=== PATIENT | male | born 1965 | race Caucasian/White ===

== ENCOUNTER → 2021-05-15 14:20 | Outpatient (BNVA) | payer OTHER, SELFPAY | PROVIDERS: PCP Internal Medicine; Referring Provider Internal Medicine; Visit Provider Physician Assistant | DX: Z12.11 Encounter for screening for malignant neoplasm of colon (principal); Z51.81 Encounter for therapeutic drug level monitoring; Z79.01 Long term (current) use of anticoagulants | CPT/HCPCS: 99202 ==

== ENCOUNTER 2021-11-06 09:01 | Outpatient (REF) | payer OTHER, SELFPAY ==
[2021-11-06 09:53] LABS: Hematocrit 45.2 % (42.0-52.0); Hemoglobin 15.1 g/dl (14.0-18.0); Mean Corpuscular HGB Conc 33.4 g/dl (31.0-36.0); Mean Corpuscular Hemoglobin 28.4 pg (27.0-33.0); Mean Platelet Volume 9.6 fL (9.4-12.4); Platelet Count 231 X10*3/uL (160-400); Red Blood Count 5.32 X10*6/uL (4.60-5.80); White Blood Count 6.3 X10*3/uL (4.8-10.8)
[2021-11-06 10:16] LABS: Alanine Aminotransferase 35 U/L (0-40); Albumin Level 4.2 g/dL (3.5-5.0); Alkaline Phosphatase 75 U/L (39-117); Anion Gap 11 (12-20); Aspartate Amino Transferase 23 U/L (5-37); Bilirubin Total 0.4 mg/dL (0.0-1.0); Blood Urea Nitrogen 15 mg/dL (9-16); Calcium 9.8 mg/dL (8.4-10.2); Carbon Dioxide 27 mmol/L (22-29); Chloride 105 mmol/L (96-108); Cholesterol 243 mg/dL; Estimated Glomerular Filt Rate > 60; Glucose Fasting 90 mg/dL (60-99); HDL Cholesterol 45 mg/dL; LDL Cholesterol Calculated 155 mg/dl; Potassium 4.2 mmol/L (3.3-5.1); Sodium 139 mmol/L (135-145); Total Protein 7.3 g/dL (6.5-8.0); Triglycerides 219 mg/dL
[2021-11-06 11:05] LABS: Appearance Urine CLEAR; Color Urine YELLOW; Glucose Urine UA NEG (NEG); Leukocyte Esterase Urine NEG (NEG); Nitrite Urine NEG (NEG); Specific Gravity - Urine 1.025 (1.005-1.025); Urine Blood NEG (NEG); Urine Ketones NEG (NEG); Urine Protein NEG (NEG-TRACE)
[2021-11-06 11:22] LABS: RBC Urine 0 /HPF (0); WBC Urine 0-2 /HPF (0-4)
== END 2021-11-06 09:02 | disposition home or self-care (01) ==
LOC: HO.LAB 09:01
PROVIDERS: PCP Internal Medicine; Visit Provider Internal Medicine
DX: Z00.00 Encounter for general adult medical examination without abnormal findings (principal); E78.5 Hyperlipidemia, unspecified; I10 Essential (primary) hypertension
CPT/HCPCS: 36415; 80053; 80061; 81001; 84153; 85027

== ENCOUNTER 2021-11-12 13:40 | Outpatient (REF) | payer OTHER, SELFPAY ==
--- NOTE | ~2021-11-12 | CT_ITS ---
EXAMINATION: CT ABDOMEN AND PELVIS WITHOUT AND WITH CONTRAST CLINICAL INFORMATION: Gross hematuria. COMPARISON: None. TECHNIQUE: Multidetector volumetric imaging was performed of the abdomen and pelvis before and after the IV administration of 85 mL of Omnipaque 350 intravenous contrast. Sagittal and coronal reformatted images were obtained on the technologist's workstation. This CT examination was performed using dose optimization techniques as appropriate, variously including the following: *Automated exposure control *Adjustment of mA and/or kV according to patient size (this includes techniques or standardized protocols for targeted exams where dose is matched to indication/reason for exam; i.e. extremities or head) *Use of iterative reconstruction technique DLP: 688 mGy-cm. FINDINGS: LUNG BASES: The visualized lung bases are unremarkable. LIVER, GALLBLADDER, AND BILIARY TREE: The liver is normal in size, shape, and attenuation. No focal hepatic lesion or biliary ductal dilatation is present. The gallbladder is contracted without any radiopaque calculi or wall thickening. PANCREAS: Unremarkable. SPLEEN: Unremarkable. ADRENAL GLANDS: Unremarkable. KIDNEYS AND URETERS: The left kidney is enlarged measuring 11.3 cm. There are multiple hypodense renal cyst. The largest cyst upper pole left kidney appears lobulated measuring 11 x 3 x 5.1 cm. There is a 6 mm radiopaque lower pole calyx left kidney approximately 10 cm from the posterior skin line. The right kidney is normal size with a small cortical defect along the lower pole lateral cortex. A 4 mm nonobstructive radiopaque calculus midpole right kidney is noted. There is no hydronephrosis or obstructive calculi. BLADDER: Unremarkable. GASTROINTESTINAL TRACT: There is scattered stool in the right colon. No colonic distention seen. The appendix and the small bowel loops are normal caliber. The stomach is nondistended and appears unremarkable. ABDOMINAL WALL: A small umbilical hernia containing fat is noted. LYMPH NODES: No abnormal-sized retroperitoneal or pelvic lymph nodes seen. VASCULAR: Unremarkable. PELVIC VISCERA: The prostate gland is mildly enlarged. No free air or free fluid is seen. No abnormal pelvic lymphadenopathy. OSSEOUS STRUCTURES: No lytic or sclerotic process seen. There is mild ventral spondylosis L3-L4, L4-L5 and L5-S1 disc levels. CT/CT abdomen pelvis wo/w con IMPRESSION: Bilateral nonobstructive nephrolithiasis without hydronephrosis. There are multiple left renal cysts with largest cyst in the upper pole is exophytic, irregular shaped and measures 11 cm. Fleischner guidelines were followed.
[2021-11-12] MEDS: iohexoL 350 MG/ML 100 ML INFUS..BTL IV (15:36)
== END 2021-11-12 13:41 | disposition home or self-care (01) ==
LOC: HO.CT 13:40
PROVIDERS: PCP Internal Medicine; Visit Provider Physician Assistant
DX: R31.0 Gross hematuria (principal)
CPT/HCPCS: 74178; Q9967

== ENCOUNTER → 2022-06-26 08:22 | Outpatient (BNVA) | payer OTHER, SELFPAY | PROVIDERS: PCP Internal Medicine; Referring Provider Internal Medicine; Visit Provider Internal Medicine | DX: I63.9 Cerebral infarction, unspecified (principal) | CPT/HCPCS: 93005; 99212 ==

== ENCOUNTER 2022-07-25 07:08 | Day surgery (SDC) | payer OTHER, SELFPAY ==
[2022-07-25 07:29] VITALS: BP 149/92; PULSE 61; RESP 16; TEMP 36.2; O2SAT 95; BMI 30.4
[2022-07-25 07:34] VITALS: BMI 30.4
--- NOTE | 2022-07-25 08:08 | HO.ANESPROP2 ---
HPI - Anesthesia Eval Consult details Narrative: 56 M for EMILIANO h/o CVA , right sided weakness , improved after a month of CVA PMFSH Active Problems Active Problems: All Active Problems (Updated 07/25/22 @ 07:36 by Estella Rosado, CHANTELL) Encounter for screening colonoscopy (Acute) Anticoagulation management encounter (Acute) Embolic stroke (Acute) Hyperlipidemia (Acute) HTN (hypertension) (Acute) Vasectomy planned (Acute) Annual physical exam (Acute) Anxiety (Acute) Past Medical History Medical History (Updated 07/25/22 @ 08:16 by Estella Rosado, CHANTELL) Annual physical exam Anxiety CVA (cerebral vascular accident) Hernia HTN (hypertension) Hyperlipidemia PFO (patent foramen ovale) Right to left cardiac shunt Vasectomy planned Functional capacity: independent ambulation Family History Family History Father Colon cancer Mother No problems noted. 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 Cognitive needs: No Hearing needs: No Vision needs: No Meds Allergies Allergy/AdvReac Type Severity Reaction Status Date / Time No Known Allergies Allergy Verified 06/26/22 08:25 [No Known Allergies*] Exam Exam Date and Time: July 25, 2022 0808 Height,Weight and Vital Signs: Height 5 ft 8 in Weight 90.718 kg Last Vital Signs Temp 97.2 F 07/25/22 07:29 Pulse 61 07/25/22 07:29 Resp 16 07/25/22 07:29 BP 149/92 H 07/25/22 07:29 Pulse Ox 95 07/25/22 07:29 O2 Del Method 07/25/22 07:29 Airway Mallampati Class: III TM Dist: >3cm Neck ROM: Full Loose/Missing/Broken Teeth: Yes (Chipped teeth ) Heart: S1,S2 Lungs: bl breath sounds Assessment and Plan Assessment Anesthesia Assessment: Anesthesia Plan Discussed and Chart Reviewed Final Anesthetic Review Family History of Problems with Anesthesia: No History of Problems with Anesthesia: No NPO: Yes ASA Class: III Final Preanesthetic Review: Meds/Allgs Chart Reviewed, Consent Obtained/Reviewed and Anes Risks/Benef Reviewed Patient Risk: Intermediate Procedure Risk: Intermediate Anesthetic Plan Anesthetic Plan: MAC: Disposition: Standard PACU
--- NOTE | 2022-07-25 08:22 | CA_ITS ---
Transesophageal Echocardiogram Patient (Last, First, Middle): Heriberto Fitzgerald, Gender: Male Date of : 1965 Age: 56 Procedure Date: 07/25/2022 Procedure Type: Transesophageal Echocardiogram Location: OP Height: 172.72 cm Weight: 90.72 kg BSA: 2.04 m2 Heart Rate: 62 bpm Learning Strategist: KARISHMA Referring MD: Johnathon Garcia MD Retail Client Solutions Analyst: Johnathon Garcia MD Symptoms: Embolic CVA Conclusion: ??? 1. Mobile interatrial septum with a small PFO 2. Normal LV systolic function 3. No intracardiac thrombi or masses or vegetations 4. Within normal limits cardiac valvular Doppler 5. Mild atherosclerotic changes noted in the arch and the descending thoracic aorta 6. Normal pericardium Findings Procedure Information Contrast agent, definity, is being given per protocol without apparent complications. Consent was obtained prior to the procedure. Pre EMILIANO oral cavity was checked and revealed no overcrowding. The adult 3D probe was passed with no difficulty. Left Ventricle Normal left ventricular size, thickness, and systolic function. The visually estimated ejection fraction is between 60-65%. There is no evidence of regional wall motion abnormalities. There is no systolic anterior motion of the mitral valve. Diastolic function is normal for age. There is no evidence of a mass in the left ventricle. there is also noted up false tendon in left ventricle with septal attachment showing a calcified nodule. Definity contrast was used and there was no evidence of noncompaction Right Ventricle Normal right ventricular cavity size and systolic function. Atria The left atrium is normal in size. There is a mobile atrial septum noted. Contrast study for right to left shunting is mildly positive with Valsalva maneuver. There is shunt reversal with the release phase of the Valsalva maneuver. the left atrium was identified in multiple views and there are no intra I left atrial thrombi or masses. The left atrial appendage was identified in multiple views with no masses or thrombi. There is no significant smoke formation seen. The left upper, right upper and right lower pulmonary vein drain normally into the left atrium. The right atrium is normal in size. The right atrium was identified in multiple view. There is a prominent eustachian valve with ejection of IVC and the right atrium. The IVC and SVC drain normally into the right atrium. An of thrombi or masses seen within the right atrium. The right atrial appendage was identified as well without any thrombi or masses. The interatrial septum is mobile with evidence of small PFO with left-to right shunt with color Doppler noted at the superior limbus. The saline contrast study was suboptimal however with multiple different injection there was small [id number] shunting noted with Valsalva while type maneuver. Aortic Valve Normal aortic valve structure and function. There is no aortic valve stenosis. There is no evidence of a mass on the aortic valve. There is no aortic valve regurgitation. Mitral Valve Normal mitral valve structure and function. There is no anterior mitral leaflet prolapse and no posterior mitral leaflet prolapse. There is trace mitral valve regurgitation. There is no mitral valve stenosis. There is no mass noted on the mitral valve. Pulmonic Valve The pulmonic valve is likely normal. There is trace pulmonic valve regurgitation. Tricuspid Valve Normal tricuspid valve structure. There is trace tricuspid valve regurgitation. Great Vessels The visualized portions of the pulmonary artery and branches are normal. descending as well as descending thoracic and arch of aorta are normal size. There is mild atherosclerotic changes noted in the descending thoracic as well as the arch of the aorta. There were no protruding plaques Venous The inferior vena cava is normal in size and collapses greater than 50% with inspiration. Pericardium/Pleural There is no evidence of pericardial effusion. Measurements Mitral Valve MV Pk E: 0.91 MV PK A: 0.43 MV Decel Time: 202.00 E/A: 2.10 E'Lateral: 10.50 E'Medial: 7.61 E/E' Med: 12.00 E/E' Lat: 8.70 PHT: 59.00 MVA PHT: 3.73 Decel [place]: 4.52 Diastolic Function MV Pk E: 0.91 MV Pk A: 0.43 E/A: 2.10 E'Medial: 7.61 E/E' Med: 12.00 E' Laterial: 10.50 E/E' Lat: 8.70 Updated by Johnathon Garcia on 04:40 PM with Status of Final Johnathon Garcia MD electronically signed on 07/26/2022 4:40:18 PM with status of Final
--- NOTE | 2022-07-25 08:23 | MHC.SHP ---
Pre-Procedural Eval Section A Date of Service: 07/25/22 The patient is an INPATIENT: No Changes since office visit: Yes Patient answered all questions; No Cold of Flu in the past 2 weeks, No New Medical Problems and No Changes in Medication The History & Physical has been completed within 30 days and I have reviewed it.: Yes Section B Chief Complaint: cerebral infarction Allergies: Allergies Allergy/AdvReac Type Severity Reaction Status Date / Time No Known Allergies Allergy Verified 06/26/22 08:25 [No Known Allergies*] Plan I have reviewed the history and physical and performed a pertinent physical examination on my patient. No changes have occurred unless specified.
[2022-07-25 09:35] VITALS: BP 108/63; PULSE 63; RESP 18; TEMP 37.3; O2SAT 98
[2022-07-25 09:50] VITALS: BP 120/74; PULSE 78; RESP 18; TEMP 37.1; O2SAT 97
[2022-07-25 10:05] VITALS: BP 116/80; PULSE 81; RESP 16; TEMP 36.1; O2SAT 98
== END 2022-07-25 10:57 | disposition home or self-care (01) ==
PROVIDERS: PCP Internal Medicine; Visit Provider Internal Medicine Cardiovascular Disease
PROC: (CPT 93312; principal; 2022-07-25 08:30)
DX: I63.9 Cerebral infarction, unspecified (principal); I10 Essential (primary) hypertension; E78.5 Hyperlipidemia, unspecified; Q21.1 Atrial septal defect; F41.1 Generalized anxiety disorder; Z79.82 Long term (current) use of aspirin; Z79.899 Other long term (current) drug therapy
CPT/HCPCS: 93312; J2250; J3010; Q9957

== ENCOUNTER → 2022-08-19 13:30 | Outpatient (REF) | payer OTHER, SELFPAY ==
--- NOTE | 2022-08-19 13:37 | HM_ITS ---
REQUESTING PROVIDER: Dr. Angel. INDICATION FOR PROCEDURE: Paroxysmal atrial fibrillation. INTERPRETATION: The patient was hooked up to cardiac event monitor from 08/19/2022 to 09/18/2022, for a total period of 30 days. FINDINGS: Baseline rhythm was normal sinus rhythm with a heart rate varying from 70 beats per minute to 92 beats per minute. There were no significant arrhythmias noted. There were no episodes of atrial fibrillation. The patient reported one event that caused palpitations that correlated with sinus rhythm. CONCLUSION: Event monitor is remarkable. 1. Baseline normal sinus rhythm with no arrhythmias including atrial fibrillation. 2. The patient reported 1 event correlated with sinus rhythm. Johnathon Garcia MD NRS/MODL / [id number]
== END ==
LOC: HO.CARD 13:30
PROVIDERS: PCP Internal Medicine; Visit Provider Internal Medicine
DX: I48.0 Paroxysmal atrial fibrillation (principal); I63.9 Cerebral infarction, unspecified
CPT/HCPCS: 93270

== ENCOUNTER 2022-11-05 13:49 | Outpatient (REF) | payer OTHER, SELFPAY ==
--- NOTE | ~2022-11-05 | XR_ITS ---
EXAMINATION: XR KNEE AP STANDING CLINICAL INFORMATION: Right knee pain. COMPARISON: None. TECHNIQUE: AP and lateral bilateral standing views of the knees was obtained. FINDINGS: AP and lateral views of the right knee demonstrate chondrocalcinosis. No acute fractures identified. There is some mild spurring about the lateral joint space compartment. There is spurring at the undersurface of the patella at the patellofemoral joint. There is a prominent spur site of attachment of the quadriceps tendon on the patella. There is a small right knee effusion. Joint spaces appear maintained. AP and lateral views of the left knee demonstrate mild narrowing of the medial joint space compartment. No acute fracture or dislocation is evident. No definite chondrocalcinosis is appreciated. There is mild patellofemoral joint spurring. No knee effusion is appreciated. Patella spurs are seen at sites of insertion of quadriceps and patella tendons. XR/XR knee standing BI IMPRESSION: No acute fracture or dislocation of the knees. Chondrocalcinosis with mild patellofemoral joint degenerative change and small right knee effusion. Mild spurring patellofemoral joint and mild narrowing of the medial joint space compartment of the left knee.
== END 2022-11-05 13:50 | disposition home or self-care (01) ==
LOC: HO.HMGCX 13:49
PROVIDERS: PCP Internal Medicine; Visit Provider Internal Medicine
DX: M25.561 Pain in right knee (principal); M25.562 Pain in left knee
CPT/HCPCS: 73565

== ENCOUNTER 2022-12-09 09:47 | Outpatient (RCR) | payer OTHER, SELFPAY ==
--- NOTE | 2022-12-09 15:12 | MHC.PT.EP ---
[facility] [place] Office [place] Office [place] Office [address] Sherin Braga [address] [phone] F: [phone] F: [phone] F: [phone] F: [phone] Physical Therapy Plan of Care Date of Evaluation: Date of Surgery: Diagnosis: B knee pain. 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 Pt is deemed an appropriate candidate to receive skilled PT services to address their physical impairments in order to improve their functional ability. Frequency and Duration: The patient will be seen 2 x/ wk x 4 wks. Short Term Goals: Initiate HEP. Improved pain with activity to < 4/10; initial: 6/10. Full R knee flexion without painful end; initial 118 with painful end. Insurance Business Analyst Goals: I with HEP. Pt will be able to stand > 1 hour with at most a little bit of difficulty; initial: extreme difficulty or unable. Pt will be ably to walk 2 blocks with no difficulty; initial: moderate difficulty. 5/5 MMT achieved for R knee flexion and extension; initial: 4/5 limited by pain. Treatment Plan: Modalities to reduce pain, spasms and effusion. Manual therapy to restore motion and function. Therapeutic exercise to improve strength and flexibility. Neuromuscular re-education for posture and balance. Therapeutic activities to return to functional activities of daily living. Electronically signed by: Bishnu Berkowitz PT Please sign and return to therapist. Thank you for your referral.
--- NOTE | 2023-01-21 15:52 | MHC.PT.DC ---
[facility] [place] Office [place] Office [place] Office [address] Sherin Braga 140 [facility] [phone] F: [phone] F: [phone] F: [phone] F: [phone] Physical Therapy Discharge Report Diagnosis: B knee pain. Date of Surgery: Date of Evaluation: 12/09/22 Date of Discharge: 01/21/23 Treatments to Date: 1 Cancellations to Date: No Shows to Date: 2 Discharge Status: Visit Non-compliance Discharge Summary: Electronically signed by: Bishnu Berkowitz PT. Please sign and return to therapist. Thank you for your referral.
== END 2023-01-21 15:51 | disposition home or self-care (01) ==
LOC: HO.PTCHIC 09:47
PROVIDERS: PCP Internal Medicine; Visit Provider Internal Medicine
DX: M25.561 Pain in right knee (principal); M25.562 Pain in left knee
CPT/HCPCS: 97110; 97161

== ENCOUNTER → 2023-03-27 08:59 | Outpatient (REF) | payer OTHER, SELFPAY | LOC: HO.SL 08:59 | PROVIDERS: PCP Internal Medicine; Visit Provider Internal Medicine | DX: G47.30 Sleep apnea, unspecified (principal); R06.83 Snoring | CPT/HCPCS: 95806 ==

== ENCOUNTER 2023-04-18 06:45 | Outpatient (REF) | payer OTHER, SELFPAY ==
[2023-04-18 11:23] LABS: MANUAL DIFF FLAG NO
[2023-04-18 11:36] LABS: Basophils Absolute Auto 0.1 X10*3/uL (0.0-0.2); Basophils Percent Auto 0.8 % (0-2); Eosinophils Absolute Auto 0.1 X10*3/uL (0.0-0.4); Eosinophils Percent Auto 2.1 % (0-4); Hematocrit 45.6 % (42.0-52.0); Hemoglobin 15.1 g/dl (14.0-18.0); Imm Gran Abs Auto 0.01 X10*3/uL (0.00-0.03); Imm Gran Pct Auto 0.2 % (0.0-0.4); Lymphocytes Percent Auto 46.1 % (20-40); Mean Corpuscular HGB Conc 33.1 g/dl (31.0-36.0); Mean Corpuscular Hemoglobin 28.7 pg (27.0-33.0); Mean Corpuscular Volume 86.7 fL (80.0-98.0); Mean Platelet Volume 10.3 fL (9.4-12.4); Monocytes Absolute Auto 0.4 X10*3/uL (0.1-1.2); Monocytes Percent Auto 6.5 % (2-11); Neutrophils Absolute Auto 2.9 x10*3/uL (2.0-8.3); Neutrophils Percent Auto 44.3 % (45-73); Platelet Count 201 X10*3/uL (160-400); Red Blood Count 5.26 X10*6/uL (4.60-5.80); Red Cell Distribution Width 12.7 % (11.0-16.0); White Blood Count 6.6 X10*3/uL (4.8-10.8)
[2023-04-18 11:51] LABS: Alanine Aminotransferase 47 U/L (0-40); Albumin Level 4.3 g/dL (3.5-5.0); Alkaline Phosphatase 87 U/L (39-117); Anion Gap 11 (12-20); Aspartate Amino Transferase 30 U/L (5-37); Bilirubin Total 0.7 mg/dL (0.0-1.0); Blood Urea Nitrogen 20 mg/dL (9-16); Calcium 9.5 mg/dL (8.4-10.2); Carbon Dioxide 27 mmol/L (22-29); Chloride 107 mmol/L (96-108); Cholesterol 170 mg/dL; Estimated Glomerular Filt Rate > 60; Glucose Fasting 89 mg/dL (60-99); HDL Cholesterol 43 mg/dL; LDL Cholesterol Calculated 101 mg/dl; Potassium 3.8 mmol/L (3.3-5.1); Sodium 141 mmol/L (135-145); Total Protein 7.3 g/dL (6.5-8.0); Triglycerides 132 mg/dL
[2023-04-18 12:10] LABS: PSA,Total (Free>4and<10) 2.16 ng/mL (0.00-4.00)
== END 2023-04-18 06:46 | disposition home or self-care (01) ==
LOC: HO.HMGCLDS 06:45
PROVIDERS: PCP Internal Medicine; Visit Provider Internal Medicine
DX: Z00.00 Encounter for general adult medical examination without abnormal findings (principal); N40.0 Benign prostatic hyperplasia without lower urinary tract symptoms; E78.5 Hyperlipidemia, unspecified; I10 Essential (primary) hypertension
CPT/HCPCS: 36415; 80053; 80061; 84153; 85025

== ENCOUNTER 2023-04-28 10:00 | Outpatient (RCR) | payer OTHER, SELFPAY ==
--- NOTE | 2023-04-07 10:51 | MHC.PT.EP ---
[facility] [place] Office [place] Office [place] Office [address] Sherin Braga [address] [phone] F: [phone] F: [phone] F: [phone] F: [phone] Physical Therapy Plan of Care Date of Evaluation: Date of Surgery: Diagnosis: Pain in R knee Assessment: 57 y/o male referred to PT with R knee pain. S/s consistent with ITB syndrome resulting in lateral knee pain, pain and difficulty with kneeling, squatting, getting off floor and sleeping in sidelying secondary to decreased muscle length of HS/ quads/ hip flexors/ ITB/ piriformis, lateral patella tracking, good strength, and increased trunk lateral flexion during gait. Recommend PT 1x/week for 4 weeks to address impairments, implement HEP, and optimize functional mobility. Frequency and Duration: The patient will be seen 1x/week for 4 weeks Short Term Goals: 2 weeks Compliant with HEP Demonstrate negative anam B Senior Care Goals: 4 weeks I with HEP and self management of sx Reports decrease in lateral R knee pain < 50% of the time with ADL's Pt will be able to get off floor from 1/2 kneel B with pain < 3/10 Treatment Plan: Modalities to reduce pain, spasms and effusion. Manual therapy to restore motion and function. Therapeutic exercise to improve strength and flexibility. Neuromuscular re-education for posture and balance. Therapeutic activities to return to functional activities of daily living. Electronically signed by: Francesca Villarreal PT Please sign and return to therapist. Thank you for your referral.
--- NOTE | 2023-05-30 09:36 | MHC.PT.DC ---
[facility] [place] Office [place] Office [place] Office [address] Sherin Braga [address] [phone] F: [phone] F: [phone] F: [phone] F: [phone] Physical Therapy Discharge Report Diagnosis: Pain in R knee Date of Surgery: Date of Evaluation: 04/07/23 Date of Discharge: 05/30/23 Treatments to Date: 3 Cancellations to Date: 0 No Shows to Date: 0 Discharge Status: Improved Function Independent with HEP Discharge Summary: Pt was making good progress and I with HEP. He had good mechanics and demonstrated compliance with HEP as he can demonstrate without instruction. He did not f/u with final visit and is d/c at this time as it has been over 30 days since last visit. Electronically signed by: Francesca Villarreal PT Please sign and return to therapist. Thank you for your referral.
== END 2023-05-30 09:36 | disposition home or self-care (01) ==
LOC: HO.PTCHIC 10:00
PROVIDERS: PCP Internal Medicine; Visit Provider Internal Medicine
DX: M25.561 Pain in right knee (principal)
CPT/HCPCS: 97110; 97161

== ENCOUNTER 2023-10-27 12:18 | Outpatient (AMB) | payer OTHER, SELFPAY ==
[2023-10-27 12:30] VITALS: BP 126/76; PULSE 63; O2SAT 97; BMI 33.3
--- NOTE | 2023-10-27 12:30 | A.OFFPC_ITS ---
Vital Signs 10/27/23 12:30 Height 5 ft 8 in Weight 219 lb BMI 33.3 BP 126/76 Blood Pressure Location Lt brachial Position Sitting Pulse 63 Pulse Source Pulse Oximeter Pulse Oximetry (%) 97 Oxygen Delivery Method Room Air Intake Visit Reasons: S/P PFO Repair Intake Note: Pt is here today for Hospital follow up visit from [facility]. Allergies No Known Allergies [No Known Allergies*] Allergy (Verified 10/27/23 12:35) Tobacco use date assessed: 10/27/23 Dental Screening Dental Screen Date: 10/27/23 Did you have a dental visit in the last 12 months?: Yes Did you have a dental problem in the last 6 months where you did not have access to dental care?: No Was dental information given to patient?: Patient has dentist HPI S/P PFO Repair HPI Details Pt presents for follow-up of PFO closure. HE HAS BEEN TAKING ATORVASTATIN METOPROLOL BABY ASPIRIN AND PLAVIX. Patient's noticed episodes of apnea more patient is sleeping. Patient complains of umbilical hernia getting bigger and causing some discomfort. [facility] Medical History (Updated 10/27/23 @ 15:33 by Thalia Agarwal MD) Sleep apnea Right to left cardiac shunt PFO (patent foramen ovale) Hernia Vasectomy planned Annual physical exam Anxiety HTN (hypertension) Hyperlipidemia CVA (cerebral vascular accident) Surgical History No pertinent past surgical history Family History (Updated 02/24/23 @ 12:45 by Rachel Singletary Ivon) Father Colon cancer Mother No problems noted. 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 Jorge Sifuentes, Faith Arechiga, Fadi Richter and colleagues, with an educational mer from [employer] Review of Systems Const All systems reviewed & are unremarkable except as noted in HPI and below Reports no additional complaints Eyes Reports no additional complaints ENT Reports no additional complaints Card Reports no additional complaints Resp Reports no additional complaints GI Reports no additional complaints Reports no additional complaints Physical exam (Primary Care) Vital Signs: Last Vital Signs Pulse 63 10/27/23 12:30 BP 126/76 10/27/23 12:30 Pulse Ox 97 10/27/23 12:30 Oxygen Delivery Method Room Air 10/27/23 12:30 BMI result Body Mass Index 33.3 Tobacco/Smoking Status: Tobacco use Status Tobacco use date assessed 10/27/23 10/27/23 12:35 Patient Tobacco Use Status Never used Tobacco 10/27/23 12:35 e-Cigarette/Vaping Use Never Used 10/27/23 12:30 Thrive Assessment: Date of Thrive Assessment Date Thrive assessed 02/24/23 10/27/23 12:30 Const General: no acute distress HENMT Face and sinus: Yes normal facial exam Eyes General: appearance normal, both eyes and all related structures Resp Effort & Inspection: normal respiratory effort Auscultation: clear to auscultation bilaterally Cardio Rhythm: regular rhythm Heart sounds: S1 normal heart sound present and S2 normal heart sound present GI Other: Reducible periumbilical hernia Palpation (GI): Soft to palpation Percussion: Yes normal to percussion Auscultation: normal bowel sounds Assessment and Plan Assessment & Plan (1) Umbilical hernia: Code(s): K42.9 - Umbilical hernia without obstruction or gangrene Plan: Referred to the surgeon (2) Sleep apnea: Code(s): G47.30 - Sleep apnea, unspecified Plan: Schedule home sleep study (3) Hyperlipidemia: Code(s): E78.5 - Hyperlipidemia, unspecified Plan: Continue statin (4) HTN (hypertension): Code(s): I10 - Essential (primary) hypertension Plan: Continue metoprolol (5) PFO (patent foramen ovale): Comment: s/p closure [facility] 10/16 Code(s): Q21.1 - Atrial septal defect Orders: Orders Complete Blood Count Auto Diff 3 Months E78.5 - Hyperlipidemia, unspecified, I10 - Essential (primary) hypertension PSA,Total (Free>4and<10) 3 Months E78.5 - Hyperlipidemia, unspecified, I10 - Essential (primary) hypertension TSH reflex Free T4 3 Months E78.5 - Hyperlipidemia, unspecified, I10 - Essential (primary) hypertension RT home sleep study Today G47.30 - Sleep apnea, unspecified Comprehensive [place]. Panel Fast 3 Months E78.5 - Hyperlipidemia, unspecified, I10 - Essential (primary) hypertension Lipid Panel 3 Months E78.5 - Hyperlipidemia, unspecified, I10 - Essential (primary) hypertension Referrals General Surgery Referral G47.30 - Sleep apnea, unspecified, K42.9 - Umbilical hernia without obstruction or gangrene Medications: New famotidine (Pepcid) 40 mg PO BEDTIME 90 tabs 0RF Coding Level of Care Code Est Pt Level 4 (71039) Diagnoses Umbilical hernia K42.9 Sleep apnea G47.30 Hyperlipidemia E78.5 HTN (hypertension) I10 PFO (patent foramen ovale) Q21.1
== END 2023-10-27 15:33 | disposition home or self-care (01) ==
PROVIDERS: PCP Internal Medicine; Visit Provider Internal Medicine
DX: K42.9 Umbilical hernia without obstruction or gangrene (principal); G47.30 Sleep apnea, unspecified; E78.5 Hyperlipidemia, unspecified; I10 Essential (primary) hypertension; Q21.10 Atrial septal defect, unspecified
CPT/HCPCS: 99214

== ENCOUNTER 2023-11-10 07:37 | Outpatient (AMB) | payer OTHER, SELFPAY ==
--- NOTE | 2023-11-10 07:40 | MHC.OFFVIS ---
Intake Vital Signs 11/10/23 07:46 Height 5 ft 8 in Weight 220 lb BMI 33.4 BP 151/71 H Blood Pressure Location Lt brachial Position Sitting Pulse 76 Intake Visit Reasons: Colonoscopy Screening Intake Note: Patient follow up for Pre Colonoscopy screening Patient denies any GI issues. Recreational Therapy Technician Required: No Accompanied by: Self / Same As Patient Allergies No Known Allergies [No Known Allergies*] Allergy (Verified 11/10/23 07:45) Medication List - Last Reconciled 11/10/23 by Jesi Diaz PA-C aspirin 81 mg PO DAILY atorvastatin 80 mg PO DAILY buspirone 5 mg PO BID clopidogrel 75 mg PO DAILY famotidine (Pepcid) 40 mg PO BEDTIME metoprolol succinate ER 25 mg PO DAILY nystatin 1 appl topical BID HPI HPI Comments History of Present Illness Details A 58 y/o male seen in 2020 for colonoscopy- was taking plavix s/p CVA-at that time- plavix was dc'd . He never had a colonoscopy- He is here today to discuss colonoscopy- he says he is not a good historian He had FO repair- at [facility], he is now taking plavix- is scheduled to discontinue December-Following cardiology @ [facility]-and again in January- He has no GI or general complaints - occ. reflux after meds in the a.m. resolves-manages well Going to [place] for December into January He has a very good appetite Has normal bowel pattern Is he has no nausea, vomiting, hematemesis, hematochezia fever or chills. He has no chest pain or shortness of PFSH Medical History (Updated 11/10/23 @ 11:26 by Jesi Diaz PA-C) Sleep apnea Right to left cardiac shunt PFO (patent foramen ovale) Hernia Vasectomy planned Annual physical exam Anxiety HTN (hypertension) Hyperlipidemia CVA (cerebral vascular accident) Surgical History No pertinent past surgical history Family History Father Colon cancer Mother No problems noted. 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 Cognitive needs: No Hearing needs: No Vision needs: No Review of Systems Const All systems reviewed & are unremarkable except as noted in HPI and below Card Denies chest pain GI Denies dyspepsia Physical Exam Vital Signs: Last Vital Signs Pulse 76 11/10/23 07:46 BP 151/71 H 11/10/23 07:46 BMI result Body Mass Index 33.4 Const General: cooperative, healthy appearing, comfortable and no acute distress Orientation/consciousness: patient oriented x3 Limitations: no limitations Eyes Sclerae: sclerae normal Resp Effort & Inspection: normal respiratory effort and able to speak in complete sentences Auscultation: clear to auscultation bilaterally, no rales, no rhonchi and no wheezes Cardio Rate: regular rate Rhythm: regular rhythm GI Palpation (GI): Soft to palpation and nontender Auscultation: normal bowel sounds Skin General skin exam: no rashes or lesions noted Neuro General: patient oriented x3 Extrem General: Yes full ROM Psych Appearance: grossly normal and well kempt Mental Status: mental status grossly normal Speech and movement: Normal speech and movement present and Clear speech present Affect: normal affect Attitude: cooperative Thought process: Normal thought process present Thought content: Normal thought content present Assessment & Plan Assessment & Plan (1) Anticoagulation management encounter: Comment: s/pCVA- clopidogrel-recent FO repair Code(s): Z51.81 - Encounter for therapeutic drug level monitoring; Z79.01 - senior care (current) use of anticoagulants Plan: Continue follow-at [facility] Continue usual medications Will await follow-up (2) PFO (patent foramen ovale): Comment: s/p closure [facility] 10/16 Code(s): Q21.1 - Atrial septal defect Plan: Continue to follow Plan Will see patient back after re-evaluated by Cardiology after recent surgery He is agree to the plan Patient Instructions: Pleasant 58-year-old Gent recent-repair of for remain ovale, clopidogrel-referred back to discuss screening colonoscopy. He has no GI or general complaints. However he will also be traveling December to [place] will be following with Cardiology on his return as well. Will see patient back after re-evaluated by Cardiology after recent surgery We typically discontinue clopidogrel for 7 days prior to procedure anticipation of polypectomy or biopsies. He is encouraged to call with any questions or concerns He is agree to the plan Coding Level of Care Code Est Pt Level 3 (75390) Diagnoses Anticoagulation management encounter Z51.81; Z79.01 PFO (patent foramen ovale) Q21.1 Time Spent (min) 30
[2023-11-10 07:46] VITALS: BP 151/71; PULSE 76; BMI 33.4
== END 2023-11-10 09:40 | disposition home or self-care (01) ==
PROVIDERS: PCP Internal Medicine; Referring Provider Internal Medicine; Visit Provider Physician Assistant
DX: Z51.81 Encounter for therapeutic drug level monitoring (principal); Z79.01 Long term (current) use of anticoagulants; Q21.10 Atrial septal defect, unspecified
CPT/HCPCS: 99213

== ENCOUNTER → 2023-11-10 07:37 | Outpatient (BNVA) | payer OTHER, SELFPAY | PROVIDERS: PCP Internal Medicine; Visit Provider Physician Assistant | DX: Z51.81 Encounter for therapeutic drug level monitoring (principal); K42.9 Umbilical hernia without obstruction or gangrene; Q21.12 Patent foramen ovale; Z79.01 Long term (current) use of anticoagulants | CPT/HCPCS: 99202; 99212 ==

== ENCOUNTER 2023-11-10 15:20 | Outpatient (AMB) | payer OTHER, SELFPAY ==
--- NOTE | 2023-11-10 15:22 | A.OFFVIS_ITS ---
Intake Vital Signs 11/10/23 15:27 Height 5 ft 8 in Weight 220 lb BMI 33.4 Intake Visit Reasons: Umbilical Hernia Intake Note: This patient presents for a umbilical hernia assessment. Patient c/o; reports no changes or complaints at this time. Flux Plant Operator Required: No Accompanied by: Self / Same As Patient Allergies No Known Allergies [No Known Allergies*] Allergy (Verified 11/10/23 15:29) Medication List - Last Reconciled 11/10/23 by Haresh Price MD aspirin 81 mg PO DAILY atorvastatin 80 mg PO DAILY buspirone 5 mg PO BID clopidogrel 75 mg PO DAILY famotidine (Pepcid) 40 mg PO BEDTIME metoprolol succinate ER 25 mg PO DAILY nystatin 1 appl topical BID HPI Umbilical Hernia HPI Details 58-year-old male referred for an umbilic al hernia. He has noticed this reducible mass on his umbilicus for a few weeks. He describes some discomfort with this. He does describe this occasionally appearing bigger with exertion. He had a closure of a patent foramen ovale in [facility] done trans arterially through the right groin last August 2023. He had a history of a stroke 2 years ago assumed to be because of his PFO. Otherwise he says he is in good health. [facility] Medical History Sleep apnea Right to left cardiac shunt PFO (patent foramen ovale) Hernia Vasectomy planned Annual physical exam Anxiety HTN (hypertension) Hyperlipidemia CVA (cerebral vascular accident) Surgical History No pertinent past surgical history Family History Father Colon cancer Mother No problems noted. 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 Cognitive needs: No Hearing needs: No Vision needs: No Review of Systems Const Denies chills and Denies fever(s) Card Denies chest pain, Denies dyspnea and Denies dyspnea on exertion Resp Denies cough, Denies dyspnea and Denies dyspnea on exertion GI Denies hematochezia and Denies change in bowel habits Denies hematuria and Denies difficulty urinating Musc Denies back pain and Denies limited range of motion Neuro Denies focal weakness and Denies convulsions Psych Denies depression and Denies mood swings Physical Exam Const General: comfortable and no acute distress Orientation/consciousness: patient oriented x3 Neck Neck: Yes no lymphadenopathy Resp Auscultation: clear to auscultation bilaterally Cardio Rhythm: regular rhythm GI Other: Umbilical hernia reducible, about 2.5 cm diameter fascial defect Palpation (GI): Soft to palpation, nontender and no guarding Neuro General: patient oriented x3 Assessment & Plan Assessment & Plan (1) Umbilical hernia: Code(s): K42.9 - Umbilical hernia without obstruction or gangrene Plan: I explained to him the technique of repair of the umbilical hernia with possible mesh placement. I reviewed the risks including but not limited to bleeding, infections, recurrence, postop pain, bowel injury, poor healing, as well as the benefits and alternatives. He has given consent. I also reviewed with him what to expect postoperatively. Coding Level of Care Code New Pt Level 3 (65407) Diagnoses Umbilical hernia K42.9
[2023-11-10 15:27] VITALS: BMI 33.4
== END 2023-11-10 15:46 | disposition home or self-care (01) ==
PROVIDERS: PCP Internal Medicine; Referring Provider Internal Medicine; Visit Provider Surgery
DX: K42.9 Umbilical hernia without obstruction or gangrene (principal)
CPT/HCPCS: 99203

== ENCOUNTER 2024-02-09 07:34 | Outpatient (AMB) | payer OTHER, SELFPAY ==
[2024-02-09 07:46] VITALS: BP 157/74; PULSE 74; BMI 33.4
--- NOTE | 2024-02-09 07:46 | MHC.OFFVIS ---
Intake Vital Signs 02/09/24 07:46 Height 5 ft 8 in Weight 220 lb BMI 33.4 BP 157/74 H Blood Pressure Location Lt brachial Position Sitting Pulse 74 Intake Visit Reasons: 3 month follow up Intake Note: Patient follow up for Anticuagulation managment Patient denies any GI issues. Binding Dyer Required: No Accompanied by: Self / Same As Patient Allergies No Known Allergies [No Known Allergies*] Allergy (Verified 02/09/24 07:51) Medication List - Last Reconciled 02/09/24 by Jesi Diaz PA-C aspirin 81 mg PO DAILY atorvastatin 80 mg PO DAILY buspirone 5 mg PO BID famotidine (Pepcid) 40 mg PO BEDTIME metoprolol succinate ER 25 mg PO DAILY nystatin 1 appl topical BID HPI HPI Comments History of Present Illness Details A 89 y/o male S/P-embolic stroke/ FO repair- was taking clopidogrel-now dc'd-awaiting index screening colonoscopy- was postponed-just returned from [place] Follows with [facility] Cardiology- Dr. Ronni Reilly He has umbilical hernia scheduled for March- will want to wait for few months- He has questions Cologuard for he as well as his - We reviewed 13% false positive, if positive would recommend colonoscopy- Appetite is good- Bowels are normal No N/V/D abdominal pain- fever or chills- [facility] Medical History (Updated 02/09/24 @ 10:36 by Jesi Diaz PA-C) Sleep apnea Right to left cardiac shunt PFO (patent foramen ovale) Hernia Vasectomy planned Annual physical exam Anxiety HTN (hypertension) Hyperlipidemia CVA (cerebral vascular accident) Surgical History No pertinent past surgical history Family History Father Colon cancer Mother No problems noted. 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 Cognitive needs: No Hearing needs: No Vision needs: No Review of Systems Const All systems reviewed & are unremarkable except as noted in HPI and below Physical Exam Vital Signs: Last Vital Signs Pulse 74 02/09/24 07:46 BP 157/74 H 02/09/24 07:46 BMI result Body Mass Index 33.4 Const General: cooperative, healthy appearing and comfortable Orientation/consciousness: patient oriented x3 Limitations: no limitations Eyes Sclerae: sclerae normal Resp Effort & Inspection: normal respiratory effort and able to speak in complete sentences Skin General skin exam: no rashes or lesions noted Neuro General: patient oriented x3 Extrem General: Yes full ROM Psych Appearance: grossly normal and well kempt Mental Status: mental status grossly normal Speech and movement: Normal speech and movement present and Clear speech present Affect: normal affect Attitude: cooperative Thought content: Normal thought content present Assessment & Plan Assessment & Plan (1) Embolic stroke: Code(s): I63.9 - Cerebral infarction, unspecified (2) Encounter for screening colonoscopy: Comment: Due for index screening colonoscopy Held off due to anticoagulated Upcoming umbilical hernia surgery- Reviewed alternative to colonoscopy will get Cologuard Code(s): Z12.11 - Encounter for screening for malignant neoplasm of colon Plan: If Cologuard positive recommend colonoscopy Plan cologuard F/u 3 mos- 30 pls Orders: Referrals Cologuard Test G47.30 - Sleep apnea, unspecified, I63.9 - Cerebral infarction, unspecified, Z12.11 - Encounter for screening for malignant neoplasm of colon Patient Instructions: Cologuard-approximately 13% false positive, if positive recommend colonoscopy Will follow up after results available No major barriers to understanding were identified Encouraged to call with any questions or concerns Coding Level of Care Code Est Pt Level 3 (68542) Diagnoses Embolic stroke I63.9 Encounter for screening colonoscopy Z12.11 Time Spent (min) 20
== END 2024-02-09 08:21 | disposition home or self-care (01) ==
PROVIDERS: PCP Internal Medicine; Visit Provider Physician Assistant
DX: I63.9 Cerebral infarction, unspecified (principal); Z12.11 Encounter for screening for malignant neoplasm of colon
CPT/HCPCS: 99213

== ENCOUNTER → 2024-02-09 07:34 | Outpatient (BNVA) | payer OTHER, SELFPAY | PROVIDERS: PCP Internal Medicine; Visit Provider Physician Assistant | DX: I63.9 Cerebral infarction, unspecified (principal); Z12.11 Encounter for screening for malignant neoplasm of colon; G47.30 Sleep apnea, unspecified | CPT/HCPCS: 99212 ==

== ENCOUNTER 2024-04-13 07:28 | Outpatient (REF) | payer OTHER, SELFPAY ==
[2024-04-13 10:28] LABS: MANUAL DIFF FLAG NO
[2024-04-13 10:31] LABS: Basophils Absolute Auto 0.1 X10*3/uL (0.0-0.2); Basophils Percent Auto 0.7 % (0-2); Eosinophils Absolute Auto 0.1 X10*3/uL (0.0-0.4); Eosinophils Percent Auto 1.8 % (0-4); Hemoglobin 15.7 g/dl (14.0-18.0); Imm Gran Abs Auto 0.01 X10*3/uL (0.00-0.03); Imm Gran Pct Auto 0.1 % (0.0-0.4); Lymphocytes Absolute Auto 3.6 X10*3/uL (1.2-4.9); Lymphocytes Percent Auto 52.9 % (20-40); Mean Corpuscular HGB Conc 33.4 g/dl (31.0-36.0); Mean Corpuscular Hemoglobin 29.2 pg (27.0-33.0); Mean Corpuscular Volume 87.4 fL (80.0-98.0); Mean Platelet Volume 10.4 fL (9.4-12.4); Monocytes Absolute Auto 0.4 X10*3/uL (0.1-1.2); Monocytes Percent Auto 5.1 % (2-11); Neutrophils Absolute Auto 2.7 x10*3/uL (2.0-8.3); Neutrophils Percent Auto 39.4 % (45-73); Platelet Count 213 X10*3/uL (160-400); Red Blood Count 5.38 X10*6/uL (4.60-5.80); Red Cell Distribution Width 13.3 % (11.0-16.0); White Blood Count 6.8 X10*3/uL (4.8-10.8)
[2024-04-13 11:12] LABS: PSA,Total (Free>4and<10) 3.22 ng/mL (0.00-4.00)
[2024-04-13 11:18] LABS: Alanine Aminotransferase 46 U/L (0-40); Albumin Level 4.3 g/dL (3.5-5.0); Alkaline Phosphatase 87 U/L (39-117); Anion Gap 12 (12-20); Aspartate Amino Transferase 30 U/L (5-37); Bilirubin Total 0.5 mg/dL (0.0-1.0); Blood Urea Nitrogen 16 mg/dL (9-16); Calcium 9.6 mg/dL (8.4-10.2); Carbon Dioxide 28 mmol/L (22-29); Chloride 108 mmol/L (96-108); Cholesterol 169 mg/dL (<200); Estimated Glomerular Filt Rate > 60; Glucose Fasting 94 mg/dL (60-99); HDL Cholesterol 44 mg/dL (>40); LDL Cholesterol Calculated 98 mg/dL (<100); Potassium 3.9 mmol/L (3.3-5.1); Sodium 144 mmol/L (135-145); Total Protein 7.6 g/dL (6.5-8.0); Triglycerides 137 mg/dL (<150)
[2024-04-13 11:19] LABS: TSH reflex Free T4 2.12 uIU/mL (0.32-4.0)
== END 2024-04-13 07:29 | disposition home or self-care (01) ==
LOC: HO.HMGCLDS 07:28
PROVIDERS: PCP Internal Medicine; Visit Provider Internal Medicine
DX: E78.5 Hyperlipidemia, unspecified (principal); I10 Essential (primary) hypertension
CPT/HCPCS: 36415; 80053; 80061; 84153; 84443; 85025

== ENCOUNTER 2024-04-14 12:39 | Outpatient (AMB) | payer OTHER, SELFPAY ==
[2024-04-14 12:39] VITALS: BP 128/86; PULSE 70; O2SAT 97; BMI 33.1
--- NOTE | 2024-04-14 12:39 | A.OFFPC_ITS ---
Vital Signs 04/14/24 12:39 Height 5 ft 8 in Weight 218 lb BMI 33.1 BP 128/86 Blood Pressure Location Lt brachial Position Sitting Pulse 70 Pulse Source Pulse Oximeter Pulse Oximetry (%) 97 Oxygen Delivery Method Room Air Intake Visit Reasons: Annual PE Intake Note: Pt is here today for PE. Allergies No Known Allergies [No Known Allergies*] Allergy (Verified 04/14/24 12:48) Medication List - Last Reconciled 04/14/24 by Thalia Agarwal MD aspirin 81 mg PO DAILY atorvastatin 80 mg PO DAILY buspirone 5 mg PO BID famotidine (Pepcid) 40 mg PO BEDTIME metoprolol succinate ER 25 mg PO DAILY nystatin 1 appl topical BID Tobacco use date assessed: 04/14/24 Dental Screening Dental Screen Date: 04/14/24 Did you have a dental visit in the last 12 months?: Yes Did you have a dental problem in the last 6 months where you did not have access to dental care?: No Was dental information given to patient?: Patient has dentist HPI Annual PE 2 HPI Details Patient presents for PE PFS Medical History (Updated 04/14/24 @ 13:20 by Thalia Agarwal MD) Right to left cardiac shunt PFO (patent foramen ovale) Hernia Vasectomy planned Annual physical exam Anxiety HTN (hypertension) Hyperlipidemia CVA (cerebral vascular accident) Surgical History No pertinent past surgical history Family History Father Colon cancer Mother No problems noted. 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 1. Little interest or pleasure in doing things: not at all 2. Feeling down, depressed, or hopeless: not at all 3. Trouble falling or staying asleep, or sleeping too much: not at all 4. Feeling tired or having little energy: not at all 5. Poor appetite or overeating: not at all 6. Feeling bad about yourself - or that you are a failure or have let yourself or your family down: not at all 7. Trouble concentrating on things, such as reading the newspaper or watching television: not at all 8. Moving or speaking so slowly that other people could have noticed. Or the opposite - being so fidgety or restless that you have been moving around a lot more than usual: not at all 9. Thoughts that you would be better off or of hurting yourself in some way: not at all Total score: 0 Depression Screening Interpretation: Negative Depression Screening Done: Yes Source: Developed by Drs. Jorge Sifuentes, Faith Arechiga, Fadi Richter and colleagues, with an educational mer from [employer]. Thrive Questionnaire Date Thrive assessed: 04/14/24 I am a: Patient What is your living situation today?: I have a steady place to live Within the past 12 months, did the food you bought not last and you didn't have the money to get more?: Never true Within the past 12 months, did you worry whether your food would run out before you got money to buy more?: Never true Do you have trouble paying for medicines?: No Do you have trouble getting transportation to medical appointments?: No Do you have trouble paying your heating and electricity bill?: No Do you have trouble taking care of your child, family member or friend?: No Do you have trouble with day-to-day activities such as bathing, preparing meals, shopping, managing finances, etc.?: No Are you currently unemployed and looking for a job?: No Are you interested in more education?: No Please select the resources that you would like help with: None THRIVE Score: 0 AUDIT C Alcohol Use Questionnaire (AUDIT-C) 1. How often do you have a drink containing alcohol?: Monthly or less 2. How many drinks containing alcohol do you have on a typical day when you are drinking?: 1 or 2 3. How often do you have six or more drinks on one occasion?: Never Total Score: 1 RUPAL-7 AMB Questionnaire RUPAL-7 Date RUPAL - 7 assessed: 04/14/24 Feeling nervous, anxious, or on edge: 0 = Not at all Not being able to stop or control worryin = Not at all Worrying too much about different things: 0 = Not at all Trouble relaxin = Not at all Being so restless that it is hard to sit still: 0 = Not at all Becoming easily annoyed or irritable: 0 = Not at all Feeling afraid as if something awful might happen: 0 = Not at all Total RUPAL-7 score (0-4 normal; 5-9 mild; 10-14 moderate; 15-21 severe): 0 Source: Developed by Drs. Jorge Sifuentes, Faith Arechiga, Fadi Richter and colleagues, with an educational mer from [employer]. Review of Systems Const All systems reviewed & are unremarkable except as noted in HPI and below Eyes Reports no additional complaints ENT Reports no additional complaints Card Reports no additional complaints Resp Reports no additional complaints GI Reports no additional complaints Reports no additional complaints Physical exam (Primary Care) Vital Signs: Last Vital Signs Pulse 70 04/14/24 12:39 BP 128/86 04/14/24 12:39 Pulse Ox 97 04/14/24 12:39 Oxygen Delivery Method Room Air 04/14/24 12:39 BMI result Body Mass Index 33.1 Tobacco/Smoking Status: Tobacco use Status Tobacco use date assessed 04/14/24 04/14/24 12:50 Patient Tobacco Use Status Never used Tobacco 04/14/24 12:50 e-Cigarette/Vaping Use Never Used 04/14/24 12:40 PHQ-9: PHQ-9 Score PHQ-9: Total score 0 04/14/24 12:52 Depression Screening Interpretation: Negative Thrive Assessment: Date of Thrive Assessment Date Thrive assessed 04/14/24 04/14/24 12:52 Const General: no acute distress HENMT Head: Yes normal to inspection Ears: hearing grossly normal bilaterally Throat: Yes posterior oropharynx normal Eyes General: appearance normal, both eyes and all related structures Neck Neck: Yes no lymphadenopathy and Yes supple Resp Effort & Inspection: normal respiratory effort Auscultation: clear to auscultation bilaterally Cardio Rhythm: regular rhythm Heart sounds: S1 normal heart sound present and S2 normal heart sound present GI Inspection: Yes normal to inspection Palpation (GI): Soft to palpation Percussion: Yes normal to percussion Auscultation: normal bowel sounds Assessment and Plan Assessment & Plan (1) Snoring: Comment: Negative sleep study 01/2023 Code(s): R06.83 - Snoring (2) Encounter for screening colonoscopy: Comment: Cologuard negative 01/2024 Code(s): Z12.11 - Encounter for screening for malignant neoplasm of colon (3) Hyperlipidemia: Code(s): E78.5 - Hyperlipidemia, unspecified Plan: Continue statin (4) HTN (hypertension): Code(s): I10 - Essential (primary) hypertension Plan: Continue metoprolol (5) Annual physical exam: Code(s): Z00.00 - Encounter for general adult medical examination without abnormal findings Plan: Well-balanced diet regular physical activity weight loss discussed with the patient Orders: Orders Comprehensive [place]. Panel Fast 1 Year E78.5 - Hyperlipidemia, unspecified, I10 - Essential (primary) hypertension, N40.0 - Benign prostatic hyperplasia without lower urinary tract symptoms, Z00.00 - Encounter for general adult medical examination without abnormal findings Complete Blood Count Auto Diff 1 Year E78.5 - Hyperlipidemia, unspecified, I10 - Essential (primary) hypertension, N40.0 - Benign prostatic hyperplasia without lower urinary tract symptoms, Z00.00 - Encounter for general adult medical examination without abnormal findings Lipid Panel 1 Year E78.5 - Hyperlipidemia, unspecified, I10 - Essential (primary) hypertension, N40.0 - Benign prostatic hyperplasia without lower urinary tract symptoms, Z00.00 - Encounter for general adult medical examination without abnormal findings PSA,Total (Free>4and<10) 1 Year E78.5 - Hyperlipidemia, unspecified, I10 - Essential (primary) hypertension, N40.0 - Benign prostatic hyperplasia without lower urinary tract symptoms, Z00.00 - Encounter for general adult medical examination without abnormal findings Coding Level of Care Code Est Pt Prev Care 40-64y(59004) Diagnoses Snoring R06.83 Encounter for screening colonoscopy Z12.11 Hyperlipidemia E78.5 HTN (hypertension) I10 Annual physical exam Z00.00
== END 2024-04-14 13:11 | disposition home or self-care (01) ==
LOC: HO.HMGC 12:39
PROVIDERS: PCP Internal Medicine; Visit Provider Internal Medicine
DX: R06.83 Snoring (principal); Z12.11 Encounter for screening for malignant neoplasm of colon; E78.5 Hyperlipidemia, unspecified; I10 Essential (primary) hypertension; Z00.00 Encounter for general adult medical examination without abnormal findings
CPT/HCPCS: 99396

== ENCOUNTER 2024-05-11 06:01 | Day surgery (SDC) | payer OTHER, SELFPAY ==
[2024-05-07 07:26] VITALS: BMI 33.4
--- NOTE | 2024-05-10 08:52 | HO.ANESPROP2 ---
HPI - Anesthesia Eval Consult details Narrative: 58yo M for Hernia Repair Umbilical w/possible mesh s/p PFO closure 08[facility] Active Problems Active Problems: All Active Problems Snoring (Acute) Umbilical hernia (Acute) BPH (benign prostatic hyperplasia) (Acute) Knee pain, right (Acute) Knee pain, bilateral (Acute) Embolic stroke (Acute) Encounter for screening colonoscopy (Acute) PFO (patent foramen ovale) (Acute) Hyperlipidemia (Acute) HTN (hypertension) (Acute) Vasectomy planned (Acute) Annual physical exam (Acute) Anxiety (Acute) Past Medical History Medical History Right to left cardiac shunt PFO (patent foramen ovale) Hernia Vasectomy planned Annual physical exam Anxiety HTN (hypertension) Hyperlipidemia CVA (cerebral vascular accident) Family History Family History Father Colon cancer Mother No problems noted. Family history of problems with anesthesia: No Surgical History Surgical History (Updated 05/19/24 @ 10:59 by Erika Santiago Ivon) History of umbilical hernia repair (~05/11/24) Hx of heart surgery History of Problems with Anesthesia: No Social History Social History Household Members Other:: 3 kids Housing: Condominium Alcohol intake: never Patient Tobacco Use Status: Never used Tobacco e-Cigarette/Vaping Use: Never Used Use of substances other than those prescribed or required for medical reasons: No Are you DNR?: No Advance Directives: No Advance Directives Information Provided: Yes service: No Current occupational status: employed 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 LV wall thickness is mildly increased. LV systolic function is nml. LVEF 55-60% No definite WMA RV size and function appears grossly nml LA is nml in size. An agitated saline study was performed and was nml at rest and with Valsava. No definite evidence of right to left shunting. PFO closure device present. PASP is WNL Assessment and Plan Assessment Anesthesia Assessment: Chart Reviewed Final Anesthetic Review Family History of Problems with Anesthesia: No History of Problems with Anesthesia: No
[2024-05-11] VITALS (8 sets, daily range): BP systolic 123–167; BP diastolic 68–97; PULSE 62–80; RESP 11–16; TEMP 36.2–36.7; O2SAT 95–97; BMI 34.2
--- NOTE | 2024-05-11 06:02 | ECG_ITS ---
Test Reason : pre op Blood Pressure : / mmHG Vent. Rate : 066 BPM Atrial Rate : 066 BPM P-R Int : 164 ms QRS Dur : 094 ms QT Int : 400 ms P-R-T Axes : 006 -20 022 degrees QTc Int : 419 ms Normal sinus rhythm Normal ECG When compared with ECG of 25-DEC-2019 11:48, No significant change was found Referred By: Alayna Gonzalez Electronically Signed By:Carlos Clemente
[2024-05-11] MEDS: Lactated Ringers 1,000 ML 100 ML IVCONT (06:39)
--- NOTE | 2024-05-11 07:14 | MHC.SHP ---
Pre-Procedural Eval Section A - 24 Hr Update-Section A only Date of Service: 05/11/24 Section B - Complete if H&P > 30 days Chief Complaint: Umbilical hernia without obstruction or gangrene Details of Present Illness: has reducible umbilical hernia Relevant Family History (Specify if Yes): No Relevant Social History: None Present Medications: see Short Stay Collaborative assessment Medical History: Significant History (BPH, hx of CVA, HTN, anxiety) Allergies: Allergies Allergy/AdvReac Type Severity Reaction Status Date / Time No Known Allergies Allergy Verified 04/14/24 12:48 [No Known Allergies*] Review of Systems Sugical H&P ROS: Negative: Constitution, Cardiovascular, Respiratory, Neurological, Psychiatric, Hem-Onc, Allergic/Immunologic, Gastrointestinal, Genitourinary, Musculoskeletal, Integumentary, Endocrine and Eyes/Ears/Nose/Throat Exam Surgical H&P Exam: Normal: HEENT, Normal: Heart, Normal: Lungs, Normal: Extremities, Normal: Skin and Normal: Neurological and Significant Findings: Abdomen (umbilical hernia, reducible, about 2.5 cm) Plan Diagnosis/Plan: Unchanged I have reviewed the history and physical and performed a pertinent physical examination on my patient. No changes have occurred unless specified. Time Spent With Patient Time: Total time managing care of this patient today ____ minutes.
--- NOTE | 2024-05-11 07:25 | HO.ANESPROP2 ---
[facility] Active Problems Active Problems: All Active Problems Snoring (Acute) Umbilical hernia (Acute) BPH (benign prostatic hyperplasia) (Acute) Knee pain, right (Acute) Knee pain, bilateral (Acute) Embolic stroke (Acute) Encounter for screening colonoscopy (Acute) PFO (patent foramen ovale) (Acute) Hyperlipidemia (Acute) HTN (hypertension) (Acute) Vasectomy planned (Acute) Annual physical exam (Acute) Anxiety (Acute) Past Medical History Medical History Right to left cardiac shunt PFO (patent foramen ovale) Hernia Vasectomy planned Annual physical exam Anxiety HTN (hypertension) Hyperlipidemia CVA (cerebral vascular accident) Functional capacity: independent ambulation Family History Family History Father Colon cancer Mother No problems noted. 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 Cognitive needs: No Hearing needs: No Vision needs: No Meds Allergies Allergy/AdvReac Type Severity Reaction Status Date / Time No Known Allergies Allergy Verified 04/14/24 12:48 [No Known Allergies*] Active Medications: Current Medications Lactated Ringer's (Lr) 1,000 mls @ 100 mls/hr IVCONT .Q10H MARCOS Last Admin: 05/11/24 06:39 Dose: 100 mls/hr Exam Height,Weight and Vital Signs: Height 5 ft 8 in Weight 102.058 kg Last Vital Signs Temp 97.3 F 05/11/24 06:22 Pulse 69 05/11/24 06:22 Resp 16 05/11/24 06:22 BP 167/97 H 05/11/24 06:22 Pulse Ox 97 05/11/24 06:22 O2 Del Method Room Air 05/11/24 06:22 Airway Mallampati Class: II TM Dist: >3cm Neck ROM: Full Heart: RRR Lungs: CTA Assessment and Plan Assessment Anesthesia Assessment: Anesthesia Plan Discussed Final Anesthetic Review Family History of Problems with Anesthesia: No History of Problems with Anesthesia: No NPO: Yes ASA Class: II Final Preanesthetic Review: Meds/Allgs Chart Reviewed, Consent Obtained/Reviewed and Anes Risks/Benef Reviewed Patient Risk: Intermediate Procedure Risk: Low Anesthetic Plan Anesthetic Plan: GA Disposition: Standard PACU
--- NOTE | 2024-05-11 07:57 | P.OP_ITS ---
Operative Note Operative Note Date of Service: 05/11/24 Narrative: Preop diagnosis: Umbilical hernia reducible Postop diagnosis: The same Procedure: Repair umbilical hernia with Ventralex mesh Surgeon: Haresh Price MD assistant financial accountant: SONIYA Isaac The patient is a 58-year-old male with a reducible umbilical hernia. He understood the technique of repair with mesh. He was aware of the risks, benefits, and alternatives He was brought to the operating room. He was placed supine under general anesthesia via laryngeal mask airway. The abdomen was prepped and draped in the usual sterile fashion. A surgical time-out was done. The patient received cefazolin 2 g IV preoperatively . I infiltrated the umbilical area with lidocaine 1%. I made a supraumbilical transverse curvilinear incision with a blade 15. This was carried down through the full-thickness of the skin subcutaneous fat. I proceeded to lift up the umbilicus as a flap with careful dissection using the Metzenbaum scissors. I was able to identify the hernia sac. This was carefully from the umbilical flap. I dissected the umbilical sac down to the fascial edge and released this from the fascial edges using sharp dissection with the Metzenbaum scissors. I was able to reduce the entire hernia which was fat containing. I define the fascial defect with sharp dissection. The underside was clear of adhesions or bowel. The fascial defect was about 2 cm in diameter. I used a small size Ventralex mesh to reinforced the defect. The mesh was secured to both fascial edges using Prolene 2 sutures on the Prolene straps of the mesh. The Prolene straps were then trimmed flush on the fascial level. I closed the fascia with a [id number] Maxon 1 stitch The umbilicus was tacked down to the fascia with a Polysorb 3-0 stitch to re- create the dimple. The subdermal layer was reapposed with Polysorb 3-0 interrupted sutures. Skin closure was achieved with Polysorb 4-0 subcuticular running stitch Steri-Strips and dressings were applied. The incision was infiltrated with Marcaine 0.5% for postop analgesia The procedure was completed The patient tolerated procedure well. There were no immediate complications. Initial and final counts of sponges and instruments were correct. Estimated blood loss about 10 cc The patient was extubated without difficulty and transferred to the recovery room with stable vital signs.
[2024-05-11] MEDS: Acetaminophen 1,000 MG/100 ML PIGGYBACK 400 MG IV (08:26)
== END 2024-05-11 09:40 | disposition home or self-care (01) ==
PROVIDERS: PCP Internal Medicine; Visit Provider Surgery
PROC: (CPT 49591; principal; 2024-05-11 07:30)
DX: K42.9 Umbilical hernia without obstruction or gangrene (principal); I10 Essential (primary) hypertension; Q21.12 Patent foramen ovale; Z95.818 Presence of other cardiac implants and grafts; E78.5 Hyperlipidemia, unspecified; Z79.82 Long term (current) use of aspirin; Z79.899 Other long term (current) drug therapy; Z86.73 Personal history of transient ischemic attack (TIA), and cerebral infarction without residual deficits
CPT/HCPCS: 49591; 93005; C1781; J0131; J0690; J1100; J2250; J2405; J2704; J2795; J3010

== ENCOUNTER → 2024-05-11 06:01 | Outpatient (BNV) | payer OTHER, SELFPAY | PROVIDERS: PCP Internal Medicine; Visit Provider Surgery | DX: K42.9 Umbilical hernia without obstruction or gangrene (principal) | CPT/HCPCS: 49591 ==

== ENCOUNTER → 2024-05-11 06:02 | Outpatient (BNV) | payer OTHER, SELFPAY | PROVIDERS: PCP Internal Medicine; Visit Provider Internal Medicine Cardiovascular Disease | DX: Z01.818 Encounter for other preprocedural examination (principal) | CPT/HCPCS: 93010 ==

== ENCOUNTER 2024-05-24 11:33 | Outpatient (AMB) | payer OTHER, SELFPAY ==
--- NOTE | 2024-05-24 11:34 | A.OFFVIS_ITS ---
Vital Signs 05/24/24 11:49 Weight 217 lb Intake Visit Reasons: S/P Repair umbilical hernia Intake Note: This patient presents for a post-op assessment status post umbilical hernia repair. Patient c/o; reports no complaints pertaining to surgery. [employer] Required: No Accompanied by: Self / Same As Patient Allergies No Known Allergies [No Known Allergies*] Allergy (Verified 05/24/24 11:50) HPI HPI S/P Repair umbilical hernia: Details: He underwent repair of an umbilical hernia with mesh last 05/11/2024 and is here for a postop visit. He says he is doing well at home and denies significant pain. He has good oral intake. [facility] Medical History Right to left cardiac shunt PFO (patent foramen ovale) Hernia Vasectomy planned Annual physical exam Anxiety HTN (hypertension) Hyperlipidemia CVA (cerebral vascular accident) Surgical History History of umbilical hernia repair (~05/11/24) Hx of heart surgery Family History Father Colon cancer Mother No problems noted. 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 Cognitive needs: No Hearing needs: No Vision needs: No Review of Systems Const Denies chills and Denies fever(s) Card Denies chest pain, Denies dyspnea and Denies dyspnea on exertion Resp Denies cough, Denies dyspnea and Denies dyspnea on exertion GI Denies hematochezia and Denies change in bowel habits Denies hematuria and Denies difficulty urinating Musc Denies back pain and Denies limited range of motion Neuro Denies focal weakness and Denies convulsions Psych Denies depression and Denies mood swings Physical Exam Const General: comfortable and no acute distress Resp Effort & Inspection: normal respiratory effort GI Other: Hernia repair site is well healed, not infected, repair site is intact Palpation (GI): Soft to palpation, not firm and nontender Assessment & Plan Assessment & Plan (1) Umbilical hernia: Code(s): K42.9 - Umbilical hernia without obstruction or gangrene Category: Medical Plan: Status post repair with mesh. He is doing very well. The repair site is well healed and intact. He was advised to avoid any lifting more than 20 lb for at least 2 more weeks. He can otherwise follow up on a p.r.n. basis. Coding Level of Care Code Global (87074) Diagnoses Umbilical hernia K42.9
== END 2024-05-24 12:03 | disposition home or self-care (01) ==
PROVIDERS: PCP Internal Medicine; Visit Provider Surgery
DX: K42.9 Umbilical hernia without obstruction or gangrene (principal)
CPT/HCPCS: 99212

== ENCOUNTER → 2024-05-24 11:33 | Outpatient (BNVA) | payer OTHER, SELFPAY | PROVIDERS: PCP Internal Medicine; Visit Provider Surgery | DX: Z09 Encounter for follow-up examination after completed treatment for conditions other than malignant neoplasm (principal); Z87.19 Personal history of other diseases of the digestive system | CPT/HCPCS: 99212 ==

== ENCOUNTER 2024-10-12 10:27 | Outpatient (AMB) | payer OTHER, SELFPAY ==
--- NOTE | 2024-10-12 10:30 | MHC.OFFVIS ---
Intake Visit Reasons: CHEMICALS DISTILLER VV Intake Note: CHEMICALS DISTILLER for VV Left LE, states not as bad on his Right LE. States they are large VV. Accompanied by: Self / Same As Patient Allergies No Known Allergies [No Known Allergies*] Allergy (Verified 10/12/24 10:33) HPI HPI CHEMICALS DISTILLER VV: Details: Heriberto, a pleasant 59 yo male patient, is presenting today as a self-referral for varicose veins. Complaints include swelling of lower extremities, cramping, fatigue, and heaviness of the lower extremities, particularly at the end of the day. It has been affecting their daily activities including walking and standing. It is noted more so in left leg. He is a nonsmoker. He is not a diabetic. Patient denies any previous venous surgery or injections. Patient denies any history of DVT/ PE. Patient denies any history of phlebitis. Trial of compression includes - elevation with some relief. He has not tried compression stockings. They now present for vascular evaluation regarding their varicose veins. [facility] Medical History Right to left cardiac shunt PFO (patent foramen ovale) Hernia Vasectomy planned Annual physical exam Anxiety HTN (hypertension) Hyperlipidemia CVA (cerebral vascular accident) Surgical History History of umbilical hernia repair (~05/11/24) Hx of heart surgery Family History Father Colon cancer Mother No problems noted. 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 Cognitive needs: No Hearing needs: No Vision needs: No Review of Systems Const Reports as per HPI and Denies weakness ENT Reports Normal hearing present and Denies dizziness Card Reports as per HPI, Denies chest pain, Denies chest pain at rest, Denies chest pain with activity, Denies dyspnea and Denies dyspnea on exertion Resp Reports as per HPI, Denies cough, Denies dyspnea and Denies dyspnea on exertion GI Reports as per HPI, Denies abdominal pain, Denies nausea and Denies vomiting Musc Denies numbness Skin/Breast Reports as per HPI, Denies erythema and Denies wounds Neuro Reports Normal hearing present, Denies dizziness, Denies numbness, Denies Sensory deficit (Neuro) and Denies weakness Psych Reports no additional complaints Endo Reports no additional complaints Physical Exam Const General: healthy appearing and no acute distress Orientation/consciousness: patient oriented x3 HEENT Head: Yes normal to inspection Ears: hearing grossly normal bilaterally Mouth: Normal oral and palatal mucosa present Resp Effort & Inspection: normal respiratory effort and able to speak in complete sentences Auscultation: clear to auscultation bilaterally Cardio Jugular venous distension: no JVD Rate: regular rate Rhythm: regular rhythm Heart sounds: S1 normal heart sound present and S2 normal heart sound present Bruits: no abdominal aortic bruits, no carotid bruits, no femoral bruits and no renal bruits Peripheral pulses: Peripheral pulses 2+ throughout GI Inspection: Yes normal to inspection Palpation (GI): No Abdominal aortic bruit present Skin General skin exam: no rashes or lesions noted Wounds: no wounds Hair: normal Neuro General: patient oriented x3 Cranial nerves: Yes Normal hearing present Cognition (Neuro): normal cognition Gait exam (Neuro): Normal gait present Motor exam (neuro): 5/5 motor strength present throughout Sensory Exam: No Sensory deficit (Neuro) Extrem Other: Bilateral lower extremities: Trace peripheral edema noted. Palpable DP pulses. No discoloration noted. Left lower extremity: Circular tortuosity is noted on the medial aspect just below the tibial plateau. Other small tortuosity is noted around the knee posteriorly and laterally. Right lower extremity: Small tortuosity is noted around the knee. CEAP: C - 3 E - primary A - superficial P - reflux General: Yes normal to inspection, Yes full ROM, Yes capillary refill normal and Yes normal gait Assessment & Plan Assessment & Plan (1) Varicose veins of both lower extremities with inflammation: Code(s): I83.11 - Varicose veins of right lower extremity with inflammation; I83.12 - Varicose veins of left lower extremity with inflammation Category: Medical Plan: Heriberto is presenting today for concerns of varicose veins that have been occurring for over a year. He does work on his feet daily and states by the end of the day the legs are crampy and heavy. He has been using elevation with some relief. In short, the patient has evidence of venous insufficiency. I have discussed the pathophysiology with the patient. In addition I have provided informational material regarding venous disease to the patient. We have discussed conservative measures including compression, elevation, and exercise. I have also provided a handout regarding appropriate use of compression stockings and where to purchase good compression stockings as well. I have taken the liberty of ordering venous insufficiency testing with the patient. They will follow up with me after testing. The patient had an opportunity to ask questions regarding the treatment plan. All questions were answered. No major barriers to understanding were identified. The patient expressed understanding and agreement with the above treatment plan. The patient is aware they should contact our office by phone for worsening of the current condition or the appearance of new symptoms. Thank you for allowing me to participate in the vascular care of this patient. If you have any questions or concerns regarding the treatment for the above condition please do not hesitate to contact me. The office telephone contact is [phone]. This note is constructed using voice recognition software. While every effort has been made to ensure accuracy, sports editor errors may have been included. Thank you for allowing me to participate in the care of your patient. Yours sincerely, SONIYA Bowden Orders: Orders US venous duplex LE BI 1 Week I83.11 - Varicose veins of right lower extremity with inflammation, I83.12 - Varicose veins of left lower extremity with inflammation Coding Level of Care Code New Pt Level 4 (61002) Diagnoses Varicose veins of both lower extremities with inflammation I83.11; I83.12
== END 2024-10-12 10:58 | disposition home or self-care (01) ==
PROVIDERS: PCP Internal Medicine; Visit Provider Physician Assistant Surgical
DX: I83.11 Varicose veins of right lower extremity with inflammation (principal); I83.12 Varicose veins of left lower extremity with inflammation
CPT/HCPCS: 99204

== ENCOUNTER → 2024-10-12 10:27 | Outpatient (BNVA) | payer OTHER, SELFPAY | PROVIDERS: PCP Internal Medicine; Visit Provider Physician Assistant Surgical | DX: I83.11 Varicose veins of right lower extremity with inflammation (principal); I83.12 Varicose veins of left lower extremity with inflammation; R06.83 Snoring; I10 Essential (primary) hypertension; E78.5 Hyperlipidemia, unspecified; Z86.73 Personal history of transient ischemic attack (TIA), and cerebral infarction without residual deficits; Z79.82 Long term (current) use of aspirin; Z79.899 Other long term (current) drug therapy | CPT/HCPCS: 96127; 99202; 99212 ==

== ENCOUNTER 2024-10-12 12:49 | Outpatient (AMB) | payer OTHER, SELFPAY ==
--- NOTE | 2024-10-12 13:36 | MHC.PC.OV ---
Vital Signs 10/12/24 13:37 Height 5 ft 8 in Weight 218 lb BMI 33.1 BP 110/74 Blood Pressure Location Lt brachial Position Sitting Pulse 81 Pulse Source Pulse Oximeter Pulse Oximetry (%) 96 Oxygen Delivery Method Room Air Intake Visit Reasons: Hernia F/U Intake Note: pt is here for hernia f/up Allergies No Known Allergies [No Known Allergies*] Allergy (Verified 10/12/24 13:41) Medication List - Last Reconciled 10/12/24 by Thalia Agarwal MD aspirin 81 mg PO DAILY atorvastatin 80 mg PO DAILY buspirone 5 mg PO BID famotidine (Pepcid) 40 mg PO BEDTIME ibuprofen 600 mg PO Q6H PRN metoprolol succinate ER 25 mg PO DAILY nystatin 1 appl topical BID Tobacco use date assessed: 10/12/24 Dental Screening Dental Screen Date: 04/14/24 HPI Hernia F/U HPI Details Presents for the follow-up on hyperlipidemia hypertension stable on current medications. He complains of loud snoring but had a negative sleep studies for sleep apnea. [facility] Medical History Right to left cardiac shunt PFO (patent foramen ovale) Hernia Vasectomy planned Annual physical exam Anxiety HTN (hypertension) Hyperlipidemia CVA (cerebral vascular accident) Surgical History History of umbilical hernia repair (~05/11/24) Hx of heart surgery Family History Father Colon cancer Mother No problems noted. 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 1. Little interest or pleasure in doing things: not at all 2. Feeling down, depressed, or hopeless: not at all 3. Trouble falling or staying asleep, or sleeping too much: not at all 4. Feeling tired or having little energy: not at all 5. Poor appetite or overeating: not at all 6. Feeling bad about yourself - or that you are a failure or have let yourself or your family down: not at all 7. Trouble concentrating on things, such as reading the newspaper or watching television: not at all 8. Moving or speaking so slowly that other people could have noticed. Or the opposite - being so fidgety or restless that you have been moving around a lot more than usual: not at all 9. Thoughts that you would be better off or of hurting yourself in some way: not at all Total score: 0 Depression Screening Interpretation: Negative Depression Screening Done: Yes 79346 - PHQ-9 Billing: Yes Source: Developed by Drs. Jorge Sifuentes, Faith Arechiga, Fadi Richter and colleagues, with an educational mer from [employer]. Thrive Questionnaire Date Thrive assessed: 10/12/24 I am a: Patient What is your living situation today?: I have a steady place to live Within the past 12 months, did the food you bought not last and you didn't have the money to get more?: Never true Within the past 12 months, did you worry whether your food would run out before you got money to buy more?: Never true Do you have trouble paying for medicines?: No Do you have trouble getting transportation to medical appointments?: No Do you have trouble paying your heating and electricity bill?: No Do you have trouble taking care of your child, family member or friend?: I choose not to answer this question Do you have trouble with day-to-day activities such as bathing, preparing meals, shopping, managing finances, etc.?: No Are you currently unemployed and looking for a job?: No Are you interested in more education?: I choose not to answer this question Please select the resources that you would like help with: None Currently or been in a relationship where the following occur: I choose not to answer THRIVE Score: 0 AUDIT C Alcohol Use Questionnaire (AUDIT-C) 1. How often do you have a drink containing alcohol?: Monthly or less 2. How many drinks containing alcohol do you have on a typical day when you are drinking?: 1 or 2 3. How often do you have six or more drinks on one occasion?: Never Total Score: 1 Score Reviewed/Action Taken: Yes RUPAL-7 AMB Questionnaire RUPAL-7 Date RUPAL - 7 assessed: 10/12/24 Feeling nervous, anxious, or on edge: 0 = Not at all Not being able to stop or control worryin = Not at all Worrying too much about different things: 0 = Not at all Trouble relaxin = Not at all Being so restless that it is hard to sit still: 0 = Not at all Becoming easily annoyed or irritable: 0 = Not at all Feeling afraid as if something awful might happen: 0 = Not at all Total RUPAL-7 score (0-4 normal; 5-9 mild; 10-14 moderate; 15-21 severe): 0 Source: Developed by Drs. Jorge Sifuentes, Faith Arechiga, Fadi Richter and colleagues, with an educational mer from [employer]. RUPAL-7 Assessment Billing RUPAL-7 Assessment Tool: RUPAL-7 Assessment 32252 Review of Systems Const All systems reviewed & are unremarkable except as noted in HPI and below ENT Reports no additional complaints Card Reports no additional complaints Resp Reports no additional complaints GI Reports no additional complaints Reports no additional complaints Physical exam (Primary Care) Vital Signs: Last Vital Signs Pulse 81 10/12/24 13:37 BP 110/74 10/12/24 13:37 Pulse Ox 96 10/12/24 13:37 Oxygen Delivery Method Room Air 10/12/24 13:37 BMI result Body Mass Index 33.1 Tobacco/Smoking Status: Tobacco use Status Tobacco use date assessed 10/12/24 10/12/24 13:43 Patient Tobacco Use Status Never used Tobacco 10/12/24 13:39 e-Cigarette/Vaping Use Never Used 10/12/24 13:39 PHQ-9: PHQ-9 Score PHQ-9: Total score 0 10/12/24 13:39 Depression Screening Interpretation: Negative Thrive Assessment: Date of Thrive Assessment Date Thrive assessed 10/12/24 10/12/24 13:39 Currently or been in a relationship where the following occur: I choose not to answer Const General: no acute distress HENMT Throat: Yes posterior oropharynx normal Resp Effort & Inspection: normal respiratory effort Auscultation: clear to auscultation bilaterally Cardio Rhythm: regular rhythm Heart sounds: S1 normal heart sound present and S2 normal heart sound present GI Inspection: Yes normal to inspection Palpation (GI): Soft to palpation Percussion: Yes normal to percussion Coding Level of Care Code Est Pt Level 4 (79567) Diagnoses Loud snoring R06.83 HTN (hypertension) I10 Hyperlipidemia E78.5 Embolic stroke I63.9 Additional Codes RUPAL-7 Assessment Billing - RUPAL-7 Assessment Tool: RUPAL-7 Assessment 92781 ([id number]) PHQ-9 - 06349 - PHQ-9 Billing: Yes ([id number]) Assessment & Plan Assessment & Plan (1) Loud snoring: Code(s): R06.83 - Snoring Category: Medical Plan: refer to ENT, WEIGHT LOSS DISCUSSED WITH THE PATIENT (2) HTN (hypertension): Code(s): I10 - Essential (primary) hypertension Category: Medical Plan: Continue metoprolol (3) Hyperlipidemia: Code(s): E78.5 - Hyperlipidemia, unspecified Category: Medical Plan: Continue statin (4) Embolic stroke: Comment: s/p PFO closure 2022 Code(s): I63.9 - Cerebral infarction, unspecified Category: Medical Plan: Continue aspirin Orders: Referrals Ear/Nose/Throat Referral R06.83 - Snoring
[2024-10-12 13:37] VITALS: BP 110/74; PULSE 81; O2SAT 96; BMI 33.1
== END 2024-10-12 14:08 | disposition home or self-care (01) ==
PROVIDERS: PCP Internal Medicine; Visit Provider Internal Medicine
DX: R06.83 Snoring (principal); I10 Essential (primary) hypertension; E78.5 Hyperlipidemia, unspecified; I63.9 Cerebral infarction, unspecified

== ENCOUNTER 2024-11-01 10:26 | Outpatient (REF) | payer OTHER, SELFPAY | END 2024-11-01 10:27 | disposition home or self-care (01) | LOC: HO.US 10:26 | PROVIDERS: PCP Internal Medicine; Visit Provider Physician Assistant Surgical | DX: I83.11 Varicose veins of right lower extremity with inflammation (principal); I83.12 Varicose veins of left lower extremity with inflammation | CPT/HCPCS: 93970 ==

== ENCOUNTER 2025-02-28 01:13 | Emergency (ER) | payer OTHER, SELFPAY ==
[2025-02-28] VITALS (7 sets, daily range): BP systolic 156–195; BP diastolic 85–95; PULSE 51–73; RESP 15–18; TEMP 36.4–37.2; O2SAT 94–96
--- NOTE | ~2025-02-28 | CT_ITS ---
CLINICAL HISTORY: R flank pain s p ESWL [address] abdomen and pelvis without contrast Comparison: None Findings: The lung bases are clear. Mild right hydronephrosis is present with 3 mm calculus in the proximal right ureter. Right perinephric fat stranding and fluid is present. Left kidney is non hydronephrotic. Nonobstructing small renal calculi are present bilaterally. Multiple probable left renal cysts are present, incompletely characterized on this exam. Mild dependent changes in the lung bases. No focal hepatic lesion identified. Gallbladder, pancreas and spleen are within normal limits. Adrenal glands are unremarkable. No bowel obstruction, pneumoperitoneum, or pneumatosis. Visualized appendix is normal. Fat containing inguinal hernias are present bilaterally. No acute fracture. IMPRESSION: Mild right hydronephrosis with 3 mm calculus in the proximal right ureter. Moderate amount of right perinephric fat stranding and fluid. This document has been electronically signed by: Elia Hercules MD, PHD on 02/28/2025 04:49:28
--- NOTE | 2025-02-28 01:36 | ED.NAVMDI ---
HPI - Nausea/Vomiting/Diarrhea General Chief complaint: Nausea/Vomiting/Diarrhea Stated complaint: back pain Time Seen by Provider: 02/28/25 01:25 Source: patient and family Mode of arrival: ambulatory Limitations: no limitations History of Present Illness ED Provider: Dr. Giovanna Camacho HPI Narrative: Patient comes to the emergency room complaining of right-sided flank pain. Patient states that on February 23 , 4 days ago, patient had a lithotripsy done at [facility]. Patient states that he was doing well until today. Patient complaining of feeling very nauseous, denies fever chills, denies hematuria or dysuria. Related Data Previous Rx's ?Medication ?Instructions ?Recorded aspirin 81 mg tablet,delayed 81 mg PO DAILY #90 tabs 10/18/20 release nystatin 100,000 unit/gram topical 1 appl topical BID #60 grams 02/24/23 powder famotidine 40 mg tablet (Pepcid) 40 mg PO BEDTIME #90 tabs 10/27/23 ibuprofen 600 mg tablet 600 mg PO Q6H PRN pain #30 tabs 05/11/24 metoprolol succinate 25 mg 25 mg PO DAILY #90 tabs 11/01/24 tablet,extended release 24 hr atorvastatin 80 mg tablet 80 mg PO DAILY #90 tabs 01/28/25 buspirone 5 mg tablet 5 mg PO BID #180 tabs 02/22/25 ondansetron HCl 4 mg tablet 4 mg PO Q6H PRN nausea and 02/28/25 vomiting #14 tabs oxycodone 5 mg tablet 5 mg PO BID PRN pain #10 tabs 02/28/25 tamsulosin 0.4 mg capsule (Flomax) 0.4 mg PO DAILY #14 caps 02/28/25 Allergies Allergy/AdvReac Type Severity Reaction Status Date / Time No Known Allergies Allergy Verified 02/28/25 01:23 [No Known Allergies*] Review of Systems Review of Systems: Constitutional : No Weight loss, No Fever, No Chills, No Night Sweats, No Fatigue, No Malaise ENT/Mouth : No Hearing loss, No Ear Pain, No Nasal Congestion, No Sinus Pain, No Hoarseness, No sore throat, No Rhinorrhea, No Swallowing Difficulty Eyes: No Eye Pain, No Swelling, No Redness, No Foreign Body, No Discharge, No Vision Changes Cardiovascular : No Chest Pain, No SOB, No Dyspnea on Exertion, No Orthopnea, No Edema, No Palpitations Respiratory : No Cough, No Sputum, No Wheezing, No Smoke Exposure, No Dyspnea Gastrointestinal complaining of nausea and vomit No Diarrhea, No Constipation, No abdominal Pain, No Hematochezia, No Melena Genitourinary : no irregular bleeding, No Dysuria, No Urinary Frequency, No Hematuria, No Urinary Incontinence, No Urgency, complaining of right-sided flank Pain, No Urinary Flow Changes, No Hesitancy Musculoskeletal : No joint pain, No Myalgias, No Joint Swelling Skin : No Skin Lesions, No rash Neuro : No Weakness, No Numbness, No Paresthesias, No Loss of Consciousness, No Dizziness, No Headache Psych : No Anxiety/Panic, No Depression, No SI/HI/AH/VH, No Social Issues, Heme/Lymph: No Bruising, No Bleeding,No Lymphadenopathy Endocrine : No Polyuria, No Polydipsia, No Temperature Intolerance [facility] Past Medical History Medical History Right to left cardiac shunt PFO (patent foramen ovale) Hernia Vasectomy planned Annual physical exam Anxiety HTN (hypertension) Hyperlipidemia CVA (cerebral vascular accident) Surgical History History of umbilical hernia repair (~05/11/24) Hx of heart surgery Family History Family History Father Colon cancer Mother No problems noted. Social History Social History Household Members Other:: 3 kids Housing: Condominium Alcohol intake: never Patient Tobacco Use Status: Never used Tobacco e-Cigarette/Vaping Use: Never Used Advance Directives: No Advance Directives Information Provided: Yes Do you have a plan to hurt others: No Plan service: No Current occupational status: employed Current occupation: [employer]- [employer] Cognitive needs: No Hearing needs: No Vision needs: No Physical Exam Vital Signs: Vital Signs: Last Vital Signs Temp 97.5 F 02/28/25 01:19 Pulse 51 02/28/25 02:24 Resp 16 02/28/25 03:10 BP 168/85 H 02/28/25 02:24 Pulse Ox 96 02/28/25 01:19 O2 Del Method Room Air 02/28/25 01:19 BMI result Body Mass Index 30.0 Const: Other: Appearance: Alert. Oriented X3. Looks uncomfortable Eyes: Pupils equal, round and reactive to light. ENT: Pharynx normal. Neck: Normal inspection. Neck supple. No lymph nodes noted. No crepitus CVS: Normal heart rate and rhythm. Pulses normal. Normal S1 and S2 Respiratory: No respiratory distress. Breath sounds normal. No Wheezing. No rales Abdomen: Soft and nontender. Positive CVA tenderness on the right Skin: Skin warm and dry. Normal skin color. Normal skin turgor. Extremities: No lower extremity edema. No Lacerations. No Rash Neuro: Oriented X 3. No motor deficit. No sensory deficit. Moving all extremities. No slurred speech. CN 2 through 12 grossly intact Psych: calm, cooperative, normal affect Course Course Course Narrative: Patient had a lithotripsy done on the right side 4 days ago, now having pain, denies hematuria dysuria or fever Patient receiving IV fluids, morphine and Zofran Labs and CT scan pending Medications Administered Discontinued Medications Generic Name Dose Route Start Last Admin Trade Name Freq PRN Reason Stop Dose Admin Hydromorphone HCl 1 mg 02/28/25 02:25 02/28/25 02:40 Hydromorphone Hcl 1 Mg/Ml Syringe IVPUSH 02/28/25 02:26 1 mg ONCE ONE Administration Protocol Sodium Chloride 1,000 mls @ 999 mls/hr 02/28/25 01:35 02/28/25 03:30 Ns IVCONT 02/28/25 02:35 Infused .Q1H1M ONE Infusion Morphine Sulfate 4 mg 02/28/25 01:35 02/28/25 01:39 Morphine Sulfate 4 Mg/Ml Cartridge IVPUSH 02/28/25 01:36 4 mg ONCE ONE Administration Protocol Ondansetron HCl 4 mg 02/28/25 01:35 02/28/25 01:39 Ondansetron Hcl 4 Mg/2 Ml Vial IVPUSH 02/28/25 01:36 4 mg ONCE ONE Administration Prochlorperazine Edisylate 10 mg 02/28/25 02:29 02/28/25 02:41 Prochlorperazine Edisylate 10 Mg/2 Ml Vial IVPUSH 02/28/25 02:30 10 mg ONCE ONE Administration Medical Decision Making Medical Decision Making [facility] Narrative: My interpretation of labs: Normal hematology and chemistry, urine negative for UTI CT scan: Mild right hydronephrosis with a 3 mm calculus in the proximal right ureter Patient will call his urologist today to schedule a follow-up appointment. Patient overall feeling better, requesting 1 more dose of pain medication. Differential Diagnosis Differential Diagnoses: The differential diagnosis associated with the presentation includes (Pyelonephritis, kidney stones) Admission/Observation Consideration of admission/observation: Escalation of care including admission/observation considered (Given patient's presentation and discomfort, observation was considered) Lab Data [facility] Lab Attestation statement: I reviewed the patient's lab results. 02/28/25 01:34 02/28/25 01:34 Labs: Lab Results 02/28/25 02/28/25 Range/Units 01:34 02:47 WBC 10.4 (4.8-10.8) X10*3/uL RBC 5.07 (4.60-5.80) X10*6/uL Hgb 15.0 (14.0-18.0) g/dl Hct 43.3 (42.0-52.0) % MCV 85.4 (80.0-98.0) fL MCH 29.6 (27.0-33.0) pg MCHC 34.6 (31.0-36.0) g/dl RDW 13.0 (11.0-16.0) % Plt Count 179 (160-400) X10*3/uL MPV 9.9 (9.4-12.4) fL Immature Gran % (Auto) 0.4 (0.0-0.4) % Neut % (Auto) 49.0 (45-73) % Lymph % (Auto) 43.5 H (20-40) % [place] % (Auto) 5.4 (2-11) % Eos % (Auto) 1.4 (0-4) % Baso % (Auto) 0.3 (0-2) % Lymph # (Auto) 4.5 (1.2-4.9) X10*3/uL [place] # (Auto) 0.6 (0.1-1.2) X10*3/uL Eos # (Auto) 0.1 (0.0-0.4) X10*3/uL Baso # (Auto) 0.0 (0.0-0.2) X10*3/uL Abs Immat Gran (auto) 0.04 H (0.00-0.03) X10*3/uL Absolute Neuts (auto) 5.1 (2.0-8.3) x10*3/uL Absolute Nucleated RBC 0.000 (0.0-0.012) X10*3/uL Nucleated RBC % (auto) 0.0 (0.0-0.2) /100WBC Hold Blue Top SEE NOTE Sodium 141 (135-145) mmol/L Potassium 3.7 (3.3-5.1) mmol/L Chloride 103 (96-108) mmol/L Carbon Dioxide 29 (22-29) mmol/L Anion Gap 13 (12-20) BUN 20 H (9-16) mg/dL Creatinine 1.29 (0.5-1.4) mg/dL Estim Creat Clear Calc 68.6 Estimated GFR 57 Random Glucose 129 H (60-115) mg/dL Calcium 9.3 (8.4-10.2) mg/dL Total Bilirubin 0.4 (0.0-1.0) mg/dL Direct Bilirubin 0.1 (0.0-0.5) mg/dL AST 29 (5-37) U/L ALT 45 H (0-40) U/L Alkaline Phosphatase 88 (39-117) U/L Total Protein 7.3 (6.5-8.0) g/dL Albumin 4.3 (3.5-5.0) g/dL Urine Color Yellow Urine Appearance Clear Urine pH 6.5 (5.0-9.0) Ur Specific [place] 1.020 (1.005-1.025) Urine Protein Trace (Neg-Trace) mg/dL Urine Glucose (UA) Negative (Negative) mg/dL Urine Ketones Negative (Negative) mg/dL Urine Blood Moderate (2+) H (Negative) Urine Nitrite Negative (Negative) Ur Leukocyte Esterase Negative (Negative) Urine RBC >20 H (0-2) /HPF Urine WBC 0-5 (0-5) /HPF Ur Squamous Epith Cells 0-2 (0-2) /HPF Urine Bacteria None Seen (None Seen) Hyaline Casts 0-2 (0-2) /LPF Independent Interpretation I performed an independent interpretation of an: CT Scan Radiology Impression Discussion of test interpretation with radiology: I have reviewed the radiologist's reading. Radiologist Impression: Mild right hydronephrosis is present with 3 mm calculus in the proximal right ureter. Right perinephric fat stranding and fluid is present. Left kidney is non hydronephrotic. Nonobstructing small renal calculi are present bilaterally. Multiple probable left renal cysts are present, incompletely characterized on this exam. Mild dependent changes in the lung bases. No focal hepatic lesion identified. Gallbladder, pancreas and spleen are within normal limits. Adrenal glands are unremarkable. No bowel obstruction, pneumoperitoneum, or pneumatosis. Visualized appendix is normal. Fat containing inguinal hernias are present bilaterally. No acute fracture. IMPRESSION: Mild right hydronephrosis with 3 mm calculus in the proximal right ureter. Moderate amount of right perinephric fat stranding and fluid. Discharge Plan Discharge Clinical Impression: Ureterolithiasis Patient Disposition: Home, Self-Care Instructions: Renal Colic (ED), Ureteral Stones (ED) Additional Instructions: Please follow-up with your primary care physician tomorrow. If you have any worsening or new symptoms, please return to the emergency room or call 911 Prescriptions: New tamsulosin [Flomax] 0.4 mg capsule 0.4 mg PO DAILY Qty: 14 0RF oxycodone 5 mg tablet 5 mg PO BID PRN (Reason: pain) Qty: 10 0RF Rx Instructions: Partial Fill upon patient request. ondansetron HCl 4 mg tablet 4 mg PO Q6H PRN (Reason: nausea and vomiting) Qty: 14 0RF No Action aspirin 81 mg tablet,delayed release (DR/EC) 81 mg PO DAILY Qty: 90 3RF metoprolol succinate 25 mg tablet extended release 24 hr 25 mg PO DAILY Qty: 90 1RF atorvastatin 80 mg tablet 80 mg PO DAILY Qty: 90 3RF buspirone 5 mg tablet 5 mg PO BID Qty: 180 3RF ibuprofen 600 mg tablet 600 mg PO Q6H PRN (Reason: pain) Qty: 30 0RF nystatin 100,000 unit/gram powder 1 appl topical BID Qty: 60 2RF famotidine [Pepcid] 40 mg tablet 40 mg PO BEDTIME Qty: 90 0RF Print Language: Belgian
[2025-02-28 01:39] LABS: MANUAL DIFF FLAG NO
[2025-02-28] MEDS: Morphine Sulfate 4 MG/ML CARTRIDGE IVPUSH (01:39)
[2025-02-28] MEDS: ondansetron HCL 4 MG/2 ML VIAL IVPUSH (01:39)
[2025-02-28 01:44] LABS: Basophils Percent Auto 0.3 % (0-2); Eosinophils Absolute Auto 0.1 X10*3/uL (0.0-0.4); Eosinophils Percent Auto 1.4 % (0-4); Hematocrit 43.3 % (42.0-52.0); Imm Gran Abs Auto 0.04 X10*3/uL (0.00-0.03); Imm Gran Pct Auto 0.4 % (0.0-0.4); Lymphocytes Absolute Auto 4.5 X10*3/uL (1.2-4.9); Lymphocytes Percent Auto 43.5 % (20-40); Mean Corpuscular HGB Conc 34.6 g/dl (31.0-36.0); Mean Corpuscular Hemoglobin 29.6 pg (27.0-33.0); Mean Corpuscular Volume 85.4 fL (80.0-98.0); Mean Platelet Volume 9.9 fL (9.4-12.4); Monocytes Absolute Auto 0.6 X10*3/uL (0.1-1.2); Monocytes Percent Auto 5.4 % (2-11); Neutrophils Absolute Auto 5.1 x10*3/uL (2.0-8.3); Platelet Count 179 X10*3/uL (160-400); Red Blood Count 5.07 X10*6/uL (4.60-5.80); White Blood Count 10.4 X10*3/uL (4.8-10.8)
[2025-02-28] MEDS: 0.9 % Sodium Chloride 1,000 ML 999 ML IVCONT (01:44)
--- OUTSIDE RECORDS SUMMARY | 2025-02-28 01:45 | XMS_ITS | Data Portability ---
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 Plan of Treatment Reminders Order Date Submit Date Provider Last Modified By Organization Details Last Modified Time Details Appointments None recorded. Lab lipid panel, serum 2017 018 [facility], [address] [place] [address], [address], 8 17:05:08 BMP, serum or plasma 2017 018 [facility], [address] [place] [address], [address], 8 17:05:05 lipid panel 2013 014 [facility], [address] [place] [address], [address], 4 08:55:27 glucose 2013 014 [facility], [address] [place] [address], [address], 4 08:55:28 Referral None recorded. Procedures colonoscopy procedure (PROC) 2018 019 [email or web address] en1 [facility], [address] [place], [address], 9 11:36:57 colonoscopy procedure (PROC) 2017 018 [email or web address] en1 [facility], [address] [place], [address], 8 16:37:59 Surgeries None recorded. Imaging None recorded. Medication Orders terbinafine HCl 250 mg tablet 2018 019 [email or web address] [facility][id number], [address] [place], [address], 4 14:08:06 metoprolol succinate ER 25 mg tablet,exte nded release 24 hr 2017 018 [email or web address] [facility] #[id number], [address] [place], [address], 4 14:08:10 nystatin 100,000 unit/gram topical cream 2013 014 [email or web address] [facility], [address] [place], [address], 4 14:08:08 Patient Targets Encounter Date Encounter Id Patient Goals Patient Target Last Modified By Organization Details Last Modified Time 03/23/2018 [id number] Blood Pressure 150/90 Not available Not available Not available 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 goal of LDL Direct less than 130 Not available Not available Not available Patient Instructions Encounter Date Encounter Id Patient Instructions Last Modified By Organization Details Last Modified Time 05/23/2014 [id number] rash: care instructions sesrick Not available 05/25/2014 21:07:04 Well Visit, Ages 18 to 65: Care Instructions sesrick Not available 05/25/2014 21:07:04 My Health To Do List As we discussed and agreed upon at your visit please work on the following: sesrick Not available 05/25/2014 21:07:04 03/23/2018 [id number] Well Visit 50 to 65: Care Instructions sesrick Not available 03/23/2018 10:02:23 10/05/2018 [id number] high cholesterol lifestyle changes sesrick Not available 10/05/2018 20:50:03 high blood pressure: care instructions sesrick Not available 10/05/2018 20:50:03 learning about high blood pressure sesrick Not available 10/05/2018 20:50:03 04/26/2019 [id number] Well Visit 50 to 65: Care Instructions sesrick Not available 04/26/2019 09:56:17 Reason for Referral None Reported. Results Created Date Observation Date Name Description Value Unit Range Abnormal Flag Note LastModifiedBy Organization Detail LastModifiedTime 06/01/20 14 06/02/2014 lipid panel cholesterol 231 mg/dL <200 mg/dL jyoti able 200-2 39 mg/dL borde rline high >240 mg/dL high Not Available [address], [address], 06/02/2014 08:55:26 06/01/20 14 06/02/2014 lipid panel triglyceride s 93 mg/dL <150 mg/dL shilpi l 150-1 99 mg/dL borde rline high 200-4 99 mg/dL high >500 mg/dL very high Not Available [address], [address], 06/02/2014 08:55:26 06/01/20 14 06/02/2014 lipid panel direct HDL 49 mg/dL Not Available [address], [address], 06/02/2014 08:55:26 06/01/20 14 06/02/2014 gluco se glucose 79 mg/dL 70-100 Not Available [address], [address], 06/02/2014 08:55:27 06/01/20 14 06/02/2014 LDL, direc t direct LDL 180 mg/dL risk categ ory LDL goal _ CHD or CHD risk equiv alent s <100 mg/dL (10-y ear risk >20%) 2+ risk facto rs <130 mg/dL (10-y ear risk <= 20%) 0-1 risk facto r? <160 mg/dL ? almos t all peopl e with 0-1 risk facto r have a 10 year risk <10%, thus 10 year risk asses ment in peopl e with 0-1 risk facto r IS not neces jordan. Not Available [address], [address], 06/02/2014 08:55:29 03/16/20 18 03/16/2018 lipid panel , serum cholesterol 275 mg/dL <200 mg/dl Jyoti able 200-2 39 mg/dl Borde rline High >240 mg/dl High Not Available [address], [address], 03/16/2018 16:21:59 03/16/20 18 03/16/2018 lipid panel , serum triglyceride s 211 mg/dL <150 mg/dL Shilpi l 150-1 99 mg/dL Borde rline High 200-4 99 mg/dL High >500 mg/dL Very High Not Available [address], [address], 03/16/2018 16:21:59 03/16/20 18 03/16/2018 lipid panel , serum direct HDL 41 mg/dL <40 mg/dl - Major Risk for CHD >60 mg/dl - Negat christ Risk for CHD Not Available [address], [address], 03/16/2018 16:21:59 03/16/20 18 03/16/2018 LDL, direc t, serum direct LDL 189 mg/dL RISK CATEG ORY LDL GOAL _ CHD or CHD Risk Equiv alent s <100 mg/dl (10-y ear risk >20%) 2+ Risk Facto rs <130 mg/dl (10-y ear risk <= 20%) 0-1 Risk Facto r? <160 mg/dl ? Almos t all peopl e with 0-1 risk facto r have a 10 year risk <10%, thus 10 year risk asses ment in peopl e with 0-1 risk facto r is not neces jordan. Not Available [address], [address], 03/16/2018 16:22:00 10/05/20 18 10/05/2018 BMP, serum or plasm a glucose 85 mg/dL 70-100 Not Available [address], [address], 10/05/2018 17:05:04 10/05/20 18 10/05/2018 BMP, serum or plasm a BUN 15 mg/dL 7-18 Not Available [address], [address], 10/05/2018 17:05:04 10/05/20 18 10/05/2018 BMP, serum or plasm a creatinine 0.9 mg/dL 0.8-1. 3 Not Available [address], [address], 10/05/2018 17:05:04 10/05/20 18 10/05/2018 BMP, serum or plasm a B/C 16.7 ratio Not Available [address], [address], 10/05/2018 17:05:04 10/05/20 18 10/05/2018 BMP, serum or plasm a GFR -non 94.6 mL/mi n Recom ceci d GFR by the Natio nal Kidne y Found ation >60 mL/mi n/1.7 3m2 - Shilpi l <60 mL/mi n/1.7 3m2 - Chron ic Kidne y Disea se <15 mL/mi n/1.7 3m2 - Kidne y Failu re Not Available [address], [address], 10/05/2018 17:05:04 10/05/20 18 10/05/2018 BMP, serum or plasm a GFR - if 114.4 mL/mi n For Afric an Ameri can patie nts: Resul ts Multi plied by 1.21 Not Available [address], [address], 10/05/2018 17:05:04 10/05/20 18 10/05/2018 BMP, serum or plasm a sodium 143 mmol/ L 136-14 5 Not Available [address], [address], 10/05/2018 17:05:04 10/05/20 18 10/05/2018 BMP, serum or plasm a potassium 4.5 mmol/ L 3.5-5. 1 Not Available [address], [address], 10/05/2018 17:05:04 10/05/20 18 10/05/2018 BMP, serum or plasm a chloride 104 mmol/ L 96-107 Not Available [address], [address], 10/05/2018 17:05:04 10/05/20 18 10/05/2018 BMP, serum or plasm a anion gap 9.0 5.0-15 .0 Not Available [address], [address], 10/05/2018 17:05:04 10/05/20 18 10/05/2018 BMP, serum or plasm a CO2 30 mmol/ L 21-32 Not Available [address], [address], 10/05/2018 17:05:04 10/05/20 18 10/05/2018 BMP, serum or plasm a calcium 9.0 mg/dL 8.5-10 .3 Not Available [address], [address], 10/05/2018 17:05:04 10/05/20 18 10/05/2018 lipid panel , serum cholesterol 266 mg/dL <200 mg/dl Jyoti able 200-2 39 mg/dl Borde rline High >240 mg/dl High Not Available [address], [address], 10/05/2018 17:05:07 10/05/20 18 10/05/2018 lipid panel , serum triglyceride s 221 mg/dL <150 mg/dL Shilpi l 150-1 99 mg/dL Borde rline High 200-4 99 mg/dL High >500 mg/dL Very High Not Available [address], [address], 10/05/2018 17:05:07 10/05/20 18 10/05/2018 lipid panel , serum direct HDL 40 mg/dL <40 mg/dl - Major Risk for CHD >60 mg/dl - Negat christ Risk for CHD Not Available [address], [address], 10/05/2018 17:05:07 10/05/20 18 10/05/2018 LDL, deangelo murphy , serum (OBS) LDL - calculated 181.8 RISK CATEG ORY LDL GOAL _ CHD or CHD Risk Equiv alent s <100 mg/dl (10-y ear risk >20%) 2+ Risk Facto rs <130 mg/dl (10-y ear risk <= 20%) 0-1 Risk Facto r? <160 mg/dl ? Almos t all peopl e with 0-1 risk facto r have a 10 year risk <10%, thus 10 year risk asses ment in peopl e with 0-1 risk facto r is not neces jordan. Not Available [address], [address], 10/05/2018 17:05:09 Result Notes None recorded. Problems Name Problem SNOMED Code Status Onset Date Resolution Date Notes Provider Name and Address Organization Details Recorded Time Knee pain Active Elida timmons, PT [address] [place], [address] , [facility] 4 12:04:30 Hyperlipid emia 41931829 Active noted in chart 4 Shelly joshi [facility] 5 09:30:58 Contusion 496179875 Completed 200101/21/2012 Not Available [facility] 3 03:09:16 Vertigo of central origin 54111784 Active Not Available [facility] 3 03:09:16 Injury of lower limb 890969338 Completed 200810/13/2013 Not Available [facility] 3 02:04:20 Common cold 16524015 Completed 200101/21/2012 Not Available [facility] 3 03:09:16 Contact dermatitis 91102119 Completed 200001/21/2012 Not Available [facility] 3 03:09:16 Inguinal hernia without obstructio n AND without gangrene Active Not Available [facility] 3 03:09:16 Knee pain Completed 200401/21/2012 Not Available [facility] 3 03:09:16 Verruca vulgaris 83019014 Completed 200001/21/2012 Not Available [facility] 3 03:09:16 Enthesopat hy of wrist AND/OR carpus 75602755 Completed 200701/21/2012 Not Available [facility] 3 03:09:16 Elevated blood-pres sure reading without diagnosis of hypertensi on 154549421 Active Noemi Hercules NP [address] [place] [address], [address] , [facility] 4 11:29:39 Low back pain 959785151 Completed 200201/21/2012 Not Available [facility] 3 03:09:16 Anxiety state 407162986 Active Not Available [facility] 3 03:09:16 Epidermoid cyst of skin 884786916 Completed 200401/21/2012 Not Available [facility] 3 03:09:16 Pure hyperchole sterolemia 076912371 Completed 200201/21/2012 Not Available [facility] 3 03:09:16 Noninfecti ous gastroente ritis 25856797 Completed 200201/21/2012 Not Available [facility] 3 03:09:16 Problem Notes None recorded. Procedures Surgical History Date Name Laterality Status Provider Name and Address Organization Details Recorded Time 9 Refraction completed Loyda Arechiga [facility] 06/23/2019 11:50:17 4 Treatment and Advice completed Elida Lund, PT [address] [place], [address], [facility] 03/07/2014 12:00:49 4 Treatment and Advice completed Elida Lund, PT [address] [place], [address], [facility] 02/28/2014 10:55:19 4 Treatment and Advice completed Elida Lund, PT [address] [place], [address], [facility] 02/14/2014 11:00:00 Imaging Results None recorded. Procedure Notes None recorded. Medical Equipment None Reported. Allergies No known drug allergies Medications Name Sig Start Date Stop Date Status Note LastModified by Organization Details LastModified Time amoxicillin 500 mg capsule 04/26 completed Not Available Not Available Not Available terbinafine HCl 250 mg tablet TAKE 1 TABLET BY MOUTH EVERY DAY 12/08 completed Not Available Not Available Not Available meclizine 25 mg tablet 1TID - TAKE ONE TABLET BY MOUTH THREE TIMES DAILY 2009 active Not Available Not Available Not Avai lable nystatin 100,000 unit/gram topical cream APPLY TO THE AFFECTED AREA(S) BY TOPICAL ROUTE 2 TIMES PER DAY 12/08 completed Not Available Not Available Not Available metoprolol succinate ER 25 mg tablet,exte nded release 24 hr TAKE 1 TABLET EVERY DAY 12/08 completed Not Available Not Available Not Available sertraline 50 mg tablet TAKE ONE TABLET BY MOUTH EVERY DAY 2011 active Not Available Not Available Not Avai lable Vitals Date Recorded Body height Body mass index (BMI) Body weight Heart rate Respiratory rate Systolic blood pressure Diastolic blood pressure Provider Name and Address Organization Details Last Updated DateTime 8 171.45 cm 30 kg/m2 13066.3 2 g 78 /min 16 /min 122 mm[Hg] 64 mm[Hg] Madelyn Toni [facility] 8 09:05:35 Date Recorded Body height Body mass index (BMI) Body weight Body temperature Heart rate Respiratory rate Systolic blood pressure Diastolic blood pressure Provider Name and Address Organization Details Last Updated DateTime 8 171.45 cm 30.4 kg/m2 43852.1 g 98.1 [degF] 76 /min 12 /min 110 mm[Hg] 82 mm[Hg] Elissa Townsend [facility] 8 09:13:04 Date Recorded Body height Body mass index (BMI) Body weight Heart rate Respiratory rate Systolic blood pressure Diastolic blood pressure Provider Name and Address Organization Details Last Updated DateTime 9 171.45 cm 30.6 kg/m2 88372.0 9 g 68 /min 16 /min 112 mm[Hg] 72 mm[Hg] Elissa Townsend [facility] 9 09:05:56 Date Recorded Body height Body mass index (BMI) Body weight Systolic blood pressure Diastolic blood pressure Provider Name and Address Organization Details Last Updated DateTime 05/23/2014 171.45 cm 29.5 kg/m2 66781.86 1144 g 118 mm[Hg] 78 mm[Hg] Haylie Perales [facility] 4 11:13:11 Social History Question Answer Notes LastModified by Organizat ion Details LastModified Time Tobacco Smoking Status Never Smoker Not Available [facility] 10/10/2011 04:54:19 Do You Have An Advance Directive? No Form Given mstefan Information not available 01/26/2010 What Is Your Level Of Alcohol Consumption? Occasional 1-2 Per Month Information not available 03/23/2018 Do You Wear A Helmet When Biking? Yes zievez Information not available 03/23/2018 What Is Your Level Of Caffeine Consumption? Moderate 2-3/day smazievez Information not available 03/23/2018 How Much Tobacco Do You Chew? None emcarthur Information not available 05/23/2014 What Type Of Diet Are You Following? 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 0 Information not available 03/23/2018 Are There Any Guns Present In Your Home? No smajose earz Information not available 03/23/2018 Live Alone Or With Others? With Others Information not available 03/23/2018 Patient Has Health Care Proxy Signed And In Chart No lhanlon Information not available 12/10/2011 Marital Status leroy Informatio n not available 03/23/2018 Mosquito Repellent Used Routinely Yes Information not available 03/23/2018 What Was The Date Of Your Most Recent Tobacco Screening? 04/26/2019 Information not available 06/16/2019 How Many Children Do You Have? 2 [email or web address] Information not available 02/17/2012 Seat Belts Used Routinely Yes monika Information not available 12/10/2011 Smoke Alarm In Home Yes lhstephanielon Information not available 12/10/2011 General Stress Level Medium smarenettaz Information not available 03/23/2018 Do You Use Sunscreen Routinely? Yes Information not available 03/23/2018 Sex: Unknown Functional Status None recorded. Mental Status None recorded. Family History Relationship Description Onset Age of this Age Resolved Age Notes LastModified by Organization Details LastModified Time Mother Hypertensive disorder previo usly record ed as Hypert ension [id number] [id number] Not available 07/05/2013 03:00:30 Father Problem unknow n [email or web address] [id number] Not available 07/05/2013 03:00:30 Brother Hyperlipidem ia [email or web address] [id number] Not available 07/05/2013 03:00:30 Brother Mental disorder anxiet y (previ ously record ed as Psychi atric Disord ers) [id number] [id number] Not available 07/05/2013 03:00:30 Brother Hyperlipidem ia [email or web address] [id number] Not available 07/05/2013 03:00:30 Medical History No medical history recorded. Immunizations Vaccine Type Date Status Note Provider Nam e and Address Organization Details Recorded Time influenza, unspecified formulation 3 completed Not Available [facility] 10/09/2011 05:21:07 Influenza, split virus, trivalent, preservative 1 completed Not Available [facility] 12/11/2019 02:18:13 Tdap 1 completed Not Available [facility] 12/11/2019 02:15:43 influenza, unspecified formulation 3 completed Not Available [facility] 10/09/2011 05:21:07 influenza, seasonal, intradermal, preservative free 2 completed Not Available [facility] 12/11/2019 02:37:17 Influenza, split virus, quadrivalent, PF 8 completed Not Available [facility] 12/11/2019 02:32:28 Past Encounters Encounter ID Performer Location Encounter Start Date Encounter Closed Date Diagnosis/Indication Diagnosis SNOMED-CT Code Diagnosis ICD10 Code Diagnosis Note [id number] [facility], [address] [place] [address] 06/18/2001 16:00:00 12/14/2008 02:02:29 [id number] [facility], [address] [place] [address] 08/10/2001 16:15:00 12/14/2008 02:02:29 [id number] [facility], [address] [place] [address] 09/14/2001 11:30:00 12/14/2008 02:02:29 [id number] [facility], [address] [place] [address] 01/15/2002 08:45:00 12/14/2008 02:02:29 [id number] [facility], [address] [place] [address] 03/26/2002 08:00:00 12/14/2008 02:02:29 [id number] [facility], [address] [place] [address] 02/16/2003 09:05:06 12/14/2008 02:02:29 [id number] [facility], [address] [place] [address] 03/10/2003 07:54:16 12/14/2008 02:02:29 [id number] [facility], [address] [place] 09/19/2003 10:44:10 09/19/2003 10:44:13 [id number] LAB - [facility] [address] [place] [place] 6 09/26/2003 14:45:04 09/26/2003 14:45:27 [id number] [facility], [address] [place] 09/26/2003 13:09:56 09/28/2003 15:36:01 [id number] LAB - [facility] [address] [place] 01/09/2004 08:51:00 01/09/2004 08:51:13 [id number] [facility], [address] [place] 01/07/2005 09:48:21 01/07/2005 17:14:20 [id number] LAB - [facility] [place] 01/08/2005 08:53:26 01/08/2005 08:54:24 [id number] [facility], [address] [place] 01/10/2005 08:50:13 01/10/2005 14:50:18 [id number] [facility], [address] [place] 01/28/2005 11:35:25 01/28/2005 17:15:37 [id number] [facility] [address] [place] [address] 02/15/2008 11:49:51 02/16/2008 09:41:44 [id number] [facility], [address] [place] [address] 02/15/2008 10:26:15 12/14/2008 02:02:29 [id number] [facility], [address] [place] [address] 08/29/2008 08:56:37 12/14/2008 02:02:29 [id number] [facility], [address] [place] 12/06/2008 10:12:10 12/14/2008 02:02:29 [id number] [facility], [address] [place] 01/26/2010 07:26:34 01/26/2010 13:32:49 [id number] [facility], [address] [place] [address] 02/27/2010 10:15:13 03/05/2010 15:53:55 [id number] [facility], [address] [place] [address] 09/10/2011 08:32:33 09/11/2011 12:02:59 [id number] Ty Edouardoliver [facility], [address] [place] [address] 10/14/2011 07:42:20 10/14/2011 08:25:52 [id number] [facility], [address] [place] [address] 02/17/2012 15:01:53 02/17/2012 16:26:10 [id number] [facility], OFFICE [address] [place] [address] 08/26/2012 06:21:16 08/26/2012 14:47:58 [id number] Hillary Nair [facility], OFFICE [address] [place] [address] 03/22/2013 11:14:15 03/22/2013 11:42:39 [id number] Beth Barcenas LPN [facility], OFFICE [address] [place] [address] 09/27/2013 16:30:31 09/27/2013 16:56:08 Influenza vaccine needed [id number] Renetta Melisa [facility], OFFICE [address] [place] [address] 02/07/2014 09:34:43 02/07/2014 09:56:42 Knee pain 41554446 Reassurred - could try icing knee after he works out at the gym - advil/ibup rofen prn. Referred to PT as below. F/u if not gradually improving or sx worsening. Elevated blood-pressure reading without diagnosis of hypertension 318332742 BP elevated today and pt is due for PHA - enc. to schedule for sometime in the next 2-3 months and can recheck BP at that visit. Enc. salt avoidance. Pt does not consume ETOH, exercises regularly and is not overwt. [id number] Elida timmons, PT Physical Therapy, [address] [address] 02/14/2014 10:31:38 02/14/2014 11:10:50 Knee pain 60285897 [id number] Elida timmons, PT Physical Therapy, [address] [address] 02/28/2014 10:30:46 02/28/2014 11:11:06 Knee pain 65115822 [id number] Elida timmons, PT Physical Therapy, [address] [address] 02/28/2014 11:03:32 02/28/2014 11:11:15 [id number] Elida timmons, PT Physical Therapy, [address] [address] 03/07/2014 11:30:41 03/07/2014 12:34:09 Knee pain 48213259 [id number] , [facility], [address] [place] [address] 05/23/2014 10:30:43 05/23/2014 11:36:14 Adult health examination 777780956 see Risk Assessment and Lifestyle Change Counseling section above Counseling [id number] Hyperlipidemia 38199267 has been high has had weight loss will recheck Influenza vaccine needed 4702220145 106 Eruption [id number] groin rash c/w tinea [id number] Kannan Heath MD , [facility], [address] [place] [address] 03/23/2018 08:44:49 03/23/2018 10:09:55 Adult health examination 174460606 Z00.00 see Risk Assessment and Lifestyle Change Counseling section above Counseling 818538364 Z71 .9 Depression screening 171 291675 Z13.89 depression screening tool administer ed, entered into emr, scored and discussed, time greater than 7.5 minutes Screening for malignant neoplasm of colon 985790333 Z12.11 Referral for a DIRECT booked colonoscop y. This patient is a healthy ASA Class 1 or 2 patient (only mild systemic disease), or a STABLE, well controlled insulin dependent diabetic. They do not have serious cardiac disease ie WI/angiopl asty within 1 year, symptomati c CHF; renal failure with CKD 4 or 5; take Coumadin, Plavix, Aggrenox, etc. Mixed hyperlipidemia 267 955922 E78.2 has been high in past will get lipids and discussed diet Benign ess ential hypertension 4395106 I10 at goal will work on diet and exercise and f/u may consider stopping med at that time [id number] Kannan Heath MD , [facility], [address] [place] [address] 10/05/2018 09:01:10 10/05/2018 09:48:18 Benign essential hypertension 9033447 I10 Blood pressure at goal Mixed hyperlipidemia 267 129648 E78.2 has been high in past will get lipids and discussed diet Active or passive immunization 952748738 Z23 [id number] Kannan Heath MD , [facility], [address] [place] [address] 04/26/2019 08:38:27 04/26/2019 10:02:27 Adult health examination 167651166 Z00.00 see Risk Assessment and Lifestyle Change Counseling section above Counseling 766310290 Z71 .9 Depression screening 171 095944 Z13.89 depression screening tool administer ed, entered into emr, scored and discussed, time greater than 7.5 minutes Screening for malignant neoplasm of colon 549916834 Z12.11 Referral for a DIRECT booked colonoscop y. This patient is a healthy ASA Class 1 or 2 patient (only mild systemic disease), or a STABLE, well controlled insulin dependent diabetic. They do not have serious cardiac disease ie WI/angiopl asty within 1 year, symptomati c CHF; renal failure with CKD 4 or 5; take Coumadin, Plavix, Aggrenox, etc. Onychomyco sis due to dermatophyte 818390772 B35.1 [id number] Mitra Aranda, [facility], [facility] [address] [place] [address] 06/23/2019 11:31:27 06/23/2019 12:25:36 Presbyopia 29973782 H52.4 Ophthalmic examination and evaluation 24587824 Z01.00 ocular health wnl OU; monitor 1-2 yrs CEE or prn Health Concerns Section Related Observation LastModified by Organization Detai ls LastModified Time None Recorded Concern Status LastModified by Organization Details LastModified Time None Recorded Advance Directives Directive N: form given Payers Encounter Date Sequence Insurance Name Policy Number Policy [place] Covered Member ID [place] Member ID Guarantor Name 05/23/2014 1 [facility] [id number] Boy Edwige [id number] Heriberto Yuliana Edwige 03/23/2018 1 [facility] ([facility] [id number] Heriberto Bridges Edwige [id number] Heriberto Yuliana Edwige 10/05/2018 1 [facility] ([facility] [id number] Heather Cy -Edwige [id number] Heriberto M Edwige 04/26/2019 1 [facility] ([facility] [id number] Heather Cy -Edwige [id number] Heriberto Bridges Edwige 06/23/2019 1 [facility] ([facility] [id number] Heather Cy -Edwige [id number] Heriberto Yuliana Edwige Notes Date Note Type Note Provider Name and Address Organization Details Recorded Time 8 text/htm l Physical Exam/MaleReported bypatient.PHAPatient is here for a Wellness Visit. He describes his health status as good. Patient's health is better than last year.Risk Assessment and Lifestyle Change Counseling 50-64Reported bypatient.Safety Risk Assessment:No evidence of abuse/neglect; Do you feel safe in your current relationship?YES; Have you ever been a victim of physicial/emotional/sexual abuse?NO; Concerns for alcohol or drug abuse?NORisk Assessment and Lifestyle Change Counseling-male 40-49Reported bypatient.Coronary Artery Disease Risk Assessment:No Family history of coronary artery disease; Regular exercise program; Eats a diet low in fats and high in fiber;Personal history of hypertension;Lipids in undesirable range; No personal history of diabetes; No use of tobacco; No history of peripheral vascular disease, AAA, or carotid disease; No personal history of coronary artery disease Colon Cancer Risk Assessment:No family history of colon polyps or cancer Lung Cancer Risk Assessment:Never smoked Risk for Sexually transmitted disease Assessment:No history of sexually transmitted disease Cognitive/Behavioral Risk Assessment:No history of depression Safety Risk Assessment:uses helmet for high velocity activities; uses seat belts; No evidence of abuse/neglect DietCounseled about eating a diet low in trans and saturated fats and high in fiber, fruits and vegetables Exercise counseling:Discussed the importance of daily physical activity Safety:Counseled about protecting skin from the sun and lowering the risk of skin cancer was pt here switched to other practice due to insurance now back - hx of hypertension on meds long hx of hyperlipidemia no hx of cad and no fh of cad Kannan Heath MD [address] [place], [address], [facility] 03/23/2018 10:18:34 8 text/htm l VMG HyperlipidemiaReported bypatient.Notes:ldl has been increasing and above goal for pt with hypertension knows he can improve dietVMG HypertensionReported bypatient.Notes:on low dose bet hortencia tolerting well bp in good control no chest pain or so b uri sx for last two days no fever Kannan Heath MD [address] [place], [address], [facility] 10/05/2018 20:38:02 9 text/htm l Physical Exam/MaleReported bypatient.PHAPatient is here for a Wellness Visit. He describes his health status as good. Patient's health is better than last year.Risk Assessment and Lifestyle Change Counseling 50-64Reported bypatient.Safety Risk Assessment:No evidence of abuse/neglect; Do you feel safe in your current relationship?YES; Have you ever been a victim of physicial/emotional/sexual abuse?NO; Concerns for alcohol or drug abuse?NORisk Assessment and Lifestyle Change Counseling-male 40-49Reported bypatient.Coronary Artery Disease Risk Assessment:No Family history of coronary artery disease; Regular exercise program; Eats a diet low in fats and high in fiber;Personal history of hypertension;Lipids in undesirable range; No personal history of diabetes; No use of tobacco; No history of peripheral vascular disease, AAA, or carotid disease; No personal history of coronary artery disease Colon Cancer Risk Assessment:No family history of colon polyps or cancer Lung Cancer Risk Assessment:Never smoked Risk for Sexually transmitted disease Assessment:No history of sexually transmitted disease Cognitive/Behavioral Risk Assessment:No history of depression Safety Risk Assessment:uses helmet for high velocity activities; uses seat belts; No evidence of abuse/neglect DietCounseled about eating a diet low in trans and saturated fats and high in fiber, fruits and vegetables Exercise counseling:Discussed the importance of daily physical activity Safety:Counseled about protecting skin from the sun and lowering the risk of skin cancer was pt here switched to other practice due to insurance now back - hx of hypertension on meds long hx of hyperlipidemia no hx of cad and no fh of cad Kannan Heath MD [address] [place], [address], [facility] 04/30/2019 21:41:24 9 text/htm l Comprehensive Eye ExamReported bypatient.Quality:year exam (First eye exam);blurred vision near without glasses Location:bilateral Context:currently wears glasses Modifying factors:wears glasses for readers only Associated Symptoms:no redness; no itching; no floaters; no dryness Mitra Aranda OD [address] [place], [address], [facility] 06/23/2019 14:35:13
[2025-02-28 02:09] LABS: Alanine Aminotransferase 45 U/L (0-40); Albumin Level 4.3 g/dL (3.5-5.0); Anion Gap 13 (12-20); Aspartate Amino Transferase 29 U/L (5-37); Bilirubin Direct 0.1 mg/dL (0.0-0.5); Bilirubin Total 0.4 mg/dL (0.0-1.0); Blood Urea Nitrogen 20 mg/dL (9-16); Calcium 9.3 mg/dL (8.4-10.2); Carbon Dioxide 29 mmol/L (22-29); Chloride 103 mmol/L (96-108); Creatinine Clr Calc Pharmacy 68.6; Estimated Glomerular Filt Rate 57; Glucose Random 129 mg/dL (60-115); Potassium 3.7 mmol/L (3.3-5.1); Sodium 141 mmol/L (135-145); Total Protein 7.3 g/dL (6.5-8.0)
[2025-02-28 02:22] LABS: Alkaline Phosphatase 88 U/L (39-117)
[2025-02-28] MEDS: HYDROmorphone HCl 1 MG/ML SYRINGE IVPUSH (02:40)
[2025-02-28] MEDS: Prochlorperazine Edisylate 10 MG/2 ML VIAL IVPUSH (02:41)
[2025-02-28 02:52] LABS: Appearance Urine Clear; Color Urine Yellow; Glucose Urine UA Negative (Negative); Leukocyte Esterase Urine Negative (Negative); Nitrite Urine Negative (Negative); PH 6.5 (5.0-9.0); UMIC TRIGGER UACC YES; Urine Blood Moderate (2+) (Negative); Urine Ketones Negative (Negative); Urine Protein Trace mg/dL (Neg-Trace)
[2025-02-28 03:52] LABS: Bacteria Urine None Seen (None Seen); Hyaline Casts Urine 0-2 /LPF (0-2); RBC Urine >20 /HPF (0-2); Squamous Epithelial Cell Urine 0-2 /HPF (0-2); WBC Urine 0-5 /HPF (0-5)
[2025-02-28] MEDS: Morphine Sulfate 2 MG/ML CARTRIDGE IVPUSH (05:50)
== END 2025-02-28 06:04 | disposition home or self-care (01) ==
PROVIDERS: Emergency Provider Emergency Medicine; PCP Internal Medicine
DX: N20.1 Calculus of ureter (principal); R11.0 Nausea; M54.50 Low back pain, unspecified; R19.7 Diarrhea, unspecified; Z79.899 Other long term (current) drug therapy
CPT/HCPCS: 36415; 74176; 80048; 80076; 81001; 85025; 96361; 96374; 96375; 96376; 99284; J0737; J1171; J2270; J2405

== ENCOUNTER → 2025-02-28 02:55 | Outpatient (BNV) | payer OTHER, SELFPAY | PROVIDERS: Emergency Provider Emergency Medicine; PCP Internal Medicine; Visit Provider General Practice | DX: N13.30 Unspecified hydronephrosis (principal); N20.0 Calculus of kidney | CPT/HCPCS: 74176 ==

== ENCOUNTER 2025-05-16 12:05 | Outpatient (AMB) | payer OTHER, SELFPAY ==
--- NOTE | 2025-05-16 12:14 | A.OFFPC_ITS ---
Vital Signs 05/16/25 12:29 Height 5 ft 8 in Weight 208 lb BMI 31.6 BP 122/80 Blood Pressure Location Rt brachial Position Sitting Respiration 18 Pulse 60 Pulse Source Pulse Oximeter Temp 98.2 F Temp Source Oral Pulse Oximetry (%) 96 Oxygen Delivery Method Room Air Intake Visit Reasons: Annual PE Intake Note: Pt is here today for PE. Allergies No Known Allergies (No Known Allergies*) Allergy (Verified 05/16/25 12:31) Medication List - Last Reconciled 05/16/25 by Thalia Agarwal MD aspirin 81 mg PO DAILY atorvastatin 80 mg PO DAILY buspirone 5 mg PO BID famotidine (Pepcid) 40 mg PO BEDTIME ibuprofen 600 mg PO Q6H PRN metoprolol succinate ER 25 mg PO DAILY nystatin 1 appl topical BID Tobacco use date assessed: 05/16/25 Dental Screening Dental Screen Date: 05/16/25 Did you have a dental visit in the last 12 months?: Yes Did you have a dental problem in the last 6 months where you did not have access to dental care?: No Was dental information given to patient?: Patient has dentist HPI Annual PE HPI Details Patient presents for physical PFSH Medical History Right to left cardiac shunt PFO (patent foramen ovale) Hernia Vasectomy planned Annual physical exam Anxiety HTN (hypertension) Hyperlipidemia CVA (cerebral vascular accident) Surgical History History of umbilical hernia repair (~05/11/24) Hx of heart surgery Family History Father Colon cancer Mother No problems noted. 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 1. Little interest or pleasure in doing things: not at all 2. Feeling down, depressed, or hopeless: not at all 3. Trouble falling or staying asleep, or sleeping too much: not at all 4. Feeling tired or having little energy: not at all 5. Poor appetite or overeating: not at all 6. Feeling bad about yourself - or that you are a failure or have let yourself or your family down: not at all 7. Trouble concentrating on things, such as reading the newspaper or watching television: not at all 8. Moving or speaking so slowly that other people could have noticed. Or the opposite - being so fidgety or restless that you have been moving around a lot more than usual: not at all 9. Thoughts that you would be better off or of hurting yourself in some way: not at all Total score: 0 Depression Screening Interpretation: Negative Depression Screening Done: Yes 09462 - PHQ-9 Billing: Yes Source: Developed by Drs. Jorge Sifuentes, Faith Arechiga, Fadi Richter and colleagues, with an educational mer from [employer]. Thrive Questionnaire Date Thrive assessed: 05/16/25 I am a: Patient What is your living situation today?: I have a steady place to live Within the past 12 months, did the food you bought not last and you didn't have the money to get more?: Never true Within the past 12 months, did you worry whether your food would run out before you got money to buy more?: Never true Do you have trouble paying for medicines?: No Do you have trouble getting transportation to medical appointments?: No Do you have trouble paying your heating and electricity bill?: No Do you have trouble taking care of your child, family member or friend?: No Do you have trouble with day-to-day activities such as bathing, preparing meals, shopping, managing finances, etc.?: No Are you currently unemployed and looking for a job?: No Are you interested in more education?: Yes Please select the resources that you would like help with: None Currently or been in a relationship where the following occur: No concerns reported THRIVE Score: 0 AUDIT C Alcohol Use Questionnaire (AUDIT-C) 1. How often do you have a drink containing alcohol?: Monthly or less 2. How many drinks containing alcohol do you have on a typical day when you are drinking?: 1 or 2 3. How often do you have six or more drinks on one occasion?: Never Total Score: 1 RUPAL-7 AMB Questionnaire RUPAL-7 Date RUPAL - 7 assessed: 05/16/25 Feeling nervous, anxious, or on edge: 0 = Not at all Not being able to stop or control worryin = Not at all Worrying too much about different things: 0 = Not at all Trouble relaxin = Not at all Being so restless that it is hard to sit still: 0 = Not at all Becoming easily annoyed or irritable: 0 = Not at all Feeling afraid as if something awful might happen: 0 = Not at all Total RUPAL-7 score (0-4 normal; 5-9 mild; 10-14 moderate; 15-21 severe): 0 Source: Developed by Drs. Jorge Sifuentes, Faith Arechiga, Fadi Richter and colleagues, with an educational mer from [employer]. RUPAL-7 Assessment Billing RUPAL-7 Assessment Tool: RUPAL-7 Assessment 33078 Review of Systems Const All systems reviewed & are unremarkable except as noted in HPI and below Eyes Reports no additional complaints ENT Reports no additional complaints Card Reports no additional complaints Resp Reports no additional complaints GI Reports no additional complaints Physical exam (Primary Care) Vital Signs: Last Vital Signs Temp 98.2 F 05/16/25 12:29 Pulse 60 05/16/25 12:29 Resp 18 05/16/25 12:29 BP 122/80 05/16/25 12:29 Pulse Ox 96 05/16/25 12:29 Oxygen Delivery Method Room Air 05/16/25 12:29 BMI result Body Mass Index 31.6 Tobacco/Smoking Status: Tobacco use Status Tobacco use date assessed 05/16/25 05/16/25 12:36 Patient Tobacco Use Status Never used Tobacco 05/16/25 12:36 e-Cigarette/Vaping Use Never Used 05/16/25 12:15 PHQ-9: PHQ-9 Score PHQ-9: Total score 0 05/16/25 14:23 Depression Screening Interpretation: Negative Thrive Assessment: Date of Thrive Assessment Date Thrive assessed 05/16/25 05/16/25 12:36 Currently or been in a relationship where the following occur: No concerns reported Const General: no acute distress HENMT Head: Yes normal to inspection Face and sinus: Yes normal facial exam Eyes General: appearance normal, both eyes and all related structures Neck Neck: Yes no lymphadenopathy and Yes supple Resp Effort & Inspection: normal respiratory effort Auscultation: clear to auscultation bilaterally Cardio Rhythm: regular rhythm Heart sounds: S1 normal heart sound present and S2 normal heart sound present GI Inspection: Yes normal to inspection Palpation (GI): Soft to palpation Percussion: Yes normal to percussion Auscultation: normal bowel sounds Coding Level of Care Code Est Pt Prev Care 40-64y(09544) Diagnoses Hyperlipidemia E78.5 HTN (hypertension) I10 Annual physical exam Z00.00 Additional Codes RUPAL-7 Assessment Billing - RUPAL-7 Assessment Tool: RUPAL-7 Assessment 14487 ([id number]) PHQ-9 - 34073 - PHQ-9 Billing: Yes ([id number]) Assessment & Plan Assessment & Plan (1) Hyperlipidemia: Code(s): E78.5 - Hyperlipidemia, unspecified Category: Medical Plan: Continue atorvastatin (2) HTN (hypertension): Code(s): I10 - Essential (primary) hypertension Category: Medical Plan: Continue metoprolol (3) Annual physical exam: Code(s): Z00.00 - Encounter for general adult medical examination without abnormal findings Category: Medical Plan: Well-balanced diet regular physical activity weight loss discussed with the patient. He will be referred to GI for colonoscopy because of his father diagnosed with colon cancer in 50s Orders: Orders Comprehensive [place]. Panel Fast 6 Months E78.5 - Hyperlipidemia, unspecified, I10 - Essential (primary) hypertension, Q21.1 - Atrial septal defect Hemoglobin A1c 6 Months E78.5 - Hyperlipidemia, unspecified, I10 - Essential (primary) hypertension, Q21.1 - Atrial septal defect Complete Blood Count Auto Diff 6 Months E78.5 - Hyperlipidemia, unspecified, I10 - Essential (primary) hypertension, Q21.1 - Atrial septal defect Lipid Panel 6 Months E78.5 - Hyperlipidemia, unspecified, I10 - Essential (primary) hypertension, Q21.1 - Atrial septal defect PSA,Total (Free>4and<10) 6 Months E78.5 - Hyperlipidemia, unspecified, I10 - Essential (primary) hypertension, Q21.1 - Atrial septal defect Referrals Gastroenterology Referral Z00.00 - Encounter for general adult medical examination without abnormal findings
[2025-05-16 12:29] VITALS: BP 122/80; PULSE 60; RESP 18; TEMP 36.8; O2SAT 96; BMI 31.6
== END 2025-05-16 13:18 | disposition home or self-care (01) ==
LOC: HO.HMCC 12:05
PROVIDERS: PCP Internal Medicine; Visit Provider Internal Medicine
DX: E78.5 Hyperlipidemia, unspecified (principal); I10 Essential (primary) hypertension; Z00.00 Encounter for general adult medical examination without abnormal findings

== ENCOUNTER → 2025-05-16 12:05 | Outpatient (BNVA) | payer OTHER, SELFPAY | PROVIDERS: PCP Internal Medicine; Visit Provider Internal Medicine | DX: Z00.00 Encounter for general adult medical examination without abnormal findings (principal); E78.5 Hyperlipidemia, unspecified; I10 Essential (primary) hypertension; Q21.10 Atrial septal defect, unspecified | CPT/HCPCS: 96127; 99396 ==

== ENCOUNTER 2025-09-06 09:03 | Outpatient (AMB) | payer OTHER, SELFPAY ==
[2025-09-06 09:12] VITALS: BMI 31.6
--- NOTE | 2025-09-06 09:12 | MHC.OFFVIS ---
Vital Signs 09/06/25 09:12 Height 5 ft 8 in Weight 208 lb BMI 31.6 Intake Visit Reasons: follow up [facility] 11/01/25 Intake Note: follow up [facility] 11/01/24 for bilateral LE VV. Left slightly worse than the Right LE. Test Borer Required: No Accompanied by: Self / Same As Patient Allergies No Known Allergies (No Known Allergies*) Allergy (Verified 09/06/25 09:13) [facility] HPI follow up [facility] 11/01/25: Details: The patient is a 59-year-old male presenting for follow-up on venous insufficiency testing and management of varicose veins. The patient underwent venous insufficiency testing on November 01, 2024, which returned normal results, showing no significant reflux in the great saphenous and small saphenous veins. He reports no current symptoms of leg discomfort or pain, although he acknowledges the presence of some varicose veins, particularly in the right calf. The patient works in a [employer], which involves prolonged standing, potentially exacerbating venous issues. He has been advised to use compression stockings during work and to elevate his legs when resting at home. [facility] Medical History Right to left cardiac shunt PFO (patent foramen ovale) Hernia Vasectomy planned Annual physical exam Anxiety HTN (hypertension) Hyperlipidemia CVA (cerebral vascular accident) Surgical History History of umbilical hernia repair (~05/11/24) Hx of heart surgery Family History Father Colon cancer Mother No problems noted. 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 Cognitive needs: No Hearing needs: No Vision needs: No Review of Systems Const Reports as per HPI ENT Reports no additional complaints Card Denies chest pain, Denies chest pain at rest and Denies chest pain with activity Resp Denies chest congestion and Denies cough GI Reports no additional complaints Musc Details: pain over varicosities, aching of lower extremities, swelling, cramping, heaviness and tiredness, itching Denies abnormal gait Skin/Breast Reports pruritus and Denies wounds Neuro Reports no additional complaints and Denies abnormal gait Psych Denies no additional complaints Physical Exam Vital Signs: BMI result Body Mass Index 31.6 Const General: cooperative, healthy appearing and comfortable Orientation/consciousness: oriented to person, oriented to place and oriented to time Neck Carotids: no bruits Chest Chest palpation & inspection: normal inspection of the chest and normal palpation of entire chest wall Resp Effort & Inspection: normal respiratory effort and able to speak in complete sentences Cardio Rate: regular rate Heart sounds: S1 normal heart sound present and S2 normal heart sound present Peripheral pulses: Peripheral pulses 2+ throughout GI Inspection: Yes normal to inspection Skin Other: +2 edema, large rope-like varicosities greater than 4 mm varicosities in bilateral calves CEAP Classification C4 - skin color changes Ep - Etiology Primary As - superficial veins P - reflux General skin exam: dry skin Neuro General: oriented to person, oriented to place and oriented to time Extrem Right lower extremity: full ROM, normal capillary refill and edema Left lower extremity: full ROM, normal capillary refill and edema Psych Mental Status: mental status grossly normal Results Reviewed Results Reviewed: Brief summary of venous insufficiency testing is as follows: right great saphenous vein: negative right small saphenous vein: negative right accessory vein: none present left great saphenous vein: negative left small saphenous vein: negative left accessory vein: none present Please note there is no evidence of any venous aneurysms or significant tortuosity Assessment & Plan Assessment & Plan (1) Varicose veins of both lower extremities with inflammation: Code(s): I83.11 - Varicose veins of right lower extremity with inflammation; I83.12 - Varicose veins of left lower extremity with inflammation Category: Medical Plan: During the visit, we discussed the normal results of the venous insufficiency testing and the presence of varicose veins. I advised the patient to use compression stockings during work and to elevate his legs when resting. We also discussed the importance of monitoring for any future symptoms and the potential for intervention if symptoms develop. Plan Patient was informed and verbally consented to the use of an ambient scribe for clinic note documentation during this visit. Patient Instructions: - Wear compression stockings during work. - Elevate legs when resting at home. - Monitor for any leg discomfort or pain and contact the clinic if symptoms develop. - Incorporate walking into daily routine to improve venous circulation. Coding Level of Care Code Est Pt Level 4 (85151) Diagnoses Varicose veins of both lower extremities with inflammation I83.11; I83.12
--- OUTSIDE RECORDS SUMMARY | 2025-09-06 09:43 | XMS_ITS | Clinical Summary ---
Author Organization [facility] [address] [facility] Address [address] [place] [address] Phone Care Team Providers Care Lab Scientist Name Role Phone Thalia Agarwal MD Primary Care Provider [phone] Allergies No known active allergies Medications atorvastatin (LIPITOR) 80 mg tablet 80 MG ORALLY DAILY 4 Active busPIRone (BUSPAR) 5 mg tablet Take 1 tablet (5 mg total) by mouth 2 (two) times a day. 5 Active metoprolol succinate (TOPROL-XL) 25 mg 24 hr tablet 5 Active aspirin 81 mg EC tablet Take 1 tablet (81 mg total) by mouth 1 (one) time each day. Active famotidine (PEPCID) 40 mg tablet Take by mouth. Activ e ibuprofen (ADVIL,MOTRIN) 600 mg tablet Take by mouth. A ctive nystatin (MYCOSTATIN) ointment Apply topically 2 (two) times a day. Active bisacodyL (DULCOLAX) 5 mg EC tablet Take 2 tablets by mouth right before beginning bowel prep. See instructions provided by the office 2 tablet 5 Active polyethylene glycol (Golytely) 236-22.74-6.74 -5.86 gram solution Take 4L by mouth once for one dose. May substitue any PEG. Starting at 2PM the day before your procedure drink 1 8oz glasses at your own pace until you complete half of the gallon. Finish 2nd half of the gallon at 8PM. 4000 mL 5 Active Encounters Date Type Department Care Team Description 08/15/2025 11:03 AM EDT Anesthesia Event [facility] Endoscopy [address] [place] [phone] Doc Yeh MD 08/15/2025 10:29 AM EDT - 08/15/2025 11:59 PM EDT Hospital Encounter [facility] Endoscopy [address] [place] [phone] Phil Pena MD Barnes, Tyanna R, CRNA Colon cancer screening Discharge Disposition: Home or Self Care from Last 3 Months Surgical History Surgery Date Site/Laterality Comments APPENDECTOMY CHOLECYSTECTOMY Medical History Medical History Date Comments Hypertension TIA (transient ischemic attack) GERD (gastroesophageal reflux disease) Social History Tobacco Use Types Packs/Day Years Used Date Smoking Tobacco: Never Smokeless Tobacco: Never Tobacco Cessation:Counseling Given: Not Answered Sex and Gender Information Value Date Recorded Sex Assigned at Male 05/19/2025 10:22 AM EDT Legal Sex Male 12:42 AM EST Gender Identity Male 05/19/2025 10:22 AM EDT Sexual Orientation Straight 08/15/2025 10 :26 AM EDT Obstetrics History Last Filed Vital Signs Vital Sign Reading Time Taken Comments Blood Pressure 128/75 08/15/2025 11:39 AM EDT Pulse 87 08/15/2025 11:39 AM EDT Temperature 36.9 C (98.4 F) 08/15/2025 11:22 AM EDT Respiratory Rate 18 08/15/2025 11:39 AM EDT Oxygen Saturation 98% 08/15/2025 11:39 AM EDT Inhaled Oxygen Concentration - - Weight 89.8 kg (198 lb) 08/15/2025 10:57 AM EDT Height 172.7 cm (5' 8 ) 08/15/2025 10:57 AM EDT Body Mass Index 30.11 08/15/2025 10:57 AM EDT Plan of Treatment Health Maintenance Due Date Last Done Comments DTaP,Tdap,and Td Vaccines (1 - Tdap) 1986 Hepatitis B Vaccines (1 of 3 - 19+ 3-dose series) 1986 Pneumococcal Vaccine: 50+ Ye ars (1 of 1 - PCV) 2017 Zoster Vaccines (1 of 2) 2017 Depression Screening 11/24/2024 Cholesterol Screening (Lipid Panel) 05/20/2025 HIV Screening 05/20/2025 Hepatitis C Screening 05/20/2025 Social Influencers of Health Screening 05/20/2025 COVID-19 Vaccine (2 - 2024-2 6 season) 2025 07/01/2022 Influenza Vaccine (#1) 2025 Colorectal Cancer Screening: Colonoscopy 08/15/2035 08/15/2025 RSV Immunization Adult Patie nts (1 - 1-dose 75+ series) 2042 HIB Vaccines Aged Out No longer eligi ble based on patient's age to complete this topic HPV Vaccines Aged Out No longer eligi ble based on patient's age to complete this topic Hepatitis A Vaccines Aged Out No long er eligible based on patient's age to complete this topic IPV Vaccines Aged Out No longer eligi ble based on patient's age to complete this topic MMR Vaccines Aged Out No longer eligi ble based on patient's age to complete this topic Meningococcal ACWY Vaccine Aged Out N o longer eligible based on patient's age to complete this topic Meningococcal B Vaccine Aged Out No l onger eligible based on patient's age to complete this topic RSV Immunization Patients Un liana 20 months Aged Out No longer eligible b ased on patient's age to complete this topic Varicella Vaccines Aged Out No longer eligible based on patient's age to complete this topic Procedures Procedure Name Priority Date/Time Associated Diagnosis Comments COLONOSCOPY Routine 08/15/2025 11:18 AM EDT Colon cancer screening from Last 3 Months Results * COLONOSCOPY Anesthesia - MAC; [facility] ENDOSCOPY (08/15/2025 11:18 AM EDT) Anatomical Region Laterality Modality Endoscopy 08/15/2025 10:5 4 AM EDT Impressions 08/15/2025 11:17 AM EDT - Non-bleeding internal hemorrhoids. - The examination was otherwise normal on direct and retroflexion views. - No specimens collected. Recommendation: - Discharge patient to home. - Resume previous diet. - Continue present medications. - Repeat colonoscopy in 10 years for surveillance. - Return to GI office PRN. Narrative 08/15/2025 11:17 AM EDT [facility] GI Patient Name: Mercedes Gibbons Procedure Date: 08/15/2025 10:54 AM Date of : 1965 Age: 59 Room: ROOM 15 Gender: Male Note Status: Finalized Attending MD: Phil Pena MD, Procedure Date No Time: 08/15/2025 Procedure: Colonoscopy Indications: Screening for colorectal malignant neoplasm Providers: Phil Pena MD Referring MD: Phil Pena MD Medicines: Monitored Anesthesia Care Complications: No immediate complications. Estimated Blood Loss: Estimated blood loss: none. Procedure: Pre-Anesthesia Assessment: - ASA Grade Assessment: II - A patient with mild systemic disease. - After reviewing the risks and benefits, the patient was deemed in satisfactory condition to undergo the procedure. After I obtained informed consent, the scope was passed under direct vision. Throughout the procedure, the patient's blood pressure, pulse, and oxygen saturations were monitored continuously.The Olympus Pediatric Colonoscope was introduced through the anus and advanced to the cecum, identified by appendiceal orifice and ileocecal valve. The colonoscopy was performed without difficulty. The patient tolerated the procedure well. The quality of the bowel preparation was good. Findings: Non-bleeding internal hemorrhoids were found during retroflexion. The hemorrhoids were small. The exam was otherwise without abnormality on direct and retroflexion views. Procedure Code(s): --- Professional --- G0121, Colorectal cancer screening; colonoscopy on individual not meeting criteria for high risk Diagnosis Code(s): --- Professional --- Z12.11, Encounter for screening for malignant neoplasm of colon CPT copyright 2020 [employer]. All rights reserved. The codes documented in this report are preliminary and upon prototype engineer manager review may be revised to meet current compliance requirements. Phil Pena MD 08/15/2025 11:17:11 AM This report has been signed electronically.Phil Pena MD Number of Addenda: 0 Note Initiated On: 08/15/2025 10:54 AM Scope In: Scope Out: Endoscopy Department at [facility] - [address] [place] [phone] Procedure Note Phil Pena MD - 08/15/2025 [facility] GI Patient Name: Mercedes Gibbons Procedure Date: 08/15/2025 10:54 AM Date of : 1965 Age: 59 Room: ROOM 15 Gender: Male Note Status: Finalized Attending MD: Phil Pena MD, Procedure Date No Time: 08/15/2025 Procedure: Colonoscopy Indications: Screening for colorectal malignant neoplasm Providers: Phil Pena MD Referring MD: Phil Pena MD Medicines: Monitored Anesthesia Care Complications: No immediate complications. Estimated Blood Loss: Estimated blood loss: none. Procedure: Pre-Anesthesia Assessment: - ASA Grade Assessment: II - A patient with mild systemic disease. - After reviewing the risks and benefits, thepatient was deemed in satisfactory condition to undergo the procedure. After I obtained informed consent, the scope was passed under direct vision. Throughout theprocedure, the patient's blood pressure, pulse, and oxygen saturations were monitored continuously.The Olympus Pediatric Colonoscope was introduced through theanus and advanced to the cecum, identified byappendiceal orifice and ileocecal valve. The colonoscopy was performed without difficulty. The patient tolerated the procedure well. The quality of the bowel preparation was good. Findings: Non-bleeding internal hemorrhoids were found during retroflexion. The hemorrhoids were small. The exam was otherwise without abnormality ondirect and retroflexion views. Procedure Code(s): --- Professional --- G0121, Colorectal cancer screening; colonoscopy on individual not meeting criteria for high risk Diagnosis Code(s): --- Professional --- Z12.11, Encounter for screening for malignantneoplasm of colon CPT copyright 2020 [employer]. All rights reserved. The codes documented in this report are preliminary and upon prototype engineer manager reviewmay be revised to meet current compliance requirements. Phil Pena MD 08/15/2025 11:17:11 AM This report has been signed electronically.Phil Pena MD Number of Addenda: 0 Note Initiated On: 08/15/2025 10:54 AM Scope In: Scope Out: Endoscopy Department at [facility] - [address] [place], [place] [phone] IMPRESSION: - Non-bleeding internal hemorrhoids. - The examination was otherwise normal on directand retroflexion views. - No specimens collected. Recommendation: - Discharge patient to home. - Resume previous diet. - Continue present medications. - Repeat colonoscopy in 10 years formerly [facility]. - Return to GI office PRN. Phil Pena MD GI~PROCEDURE ORDERABLES Final Result from Last 3 Months Insurance [facility] [employer] Care Teams Lab Scientist Relationship Specialty Start Date End Date Thalia Agarwal MD [address] [place] [address] PCP - General Internal Medicine 08/01/25
== END 2025-09-06 09:28 | disposition home or self-care (01) ==
LOC: HO.HVS 09:04
PROVIDERS: PCP Internal Medicine; Visit Provider Surgery Vascular Surgery
DX: I83.11 Varicose veins of right lower extremity with inflammation (principal); I83.12 Varicose veins of left lower extremity with inflammation
CPT/HCPCS: 99214

== ENCOUNTER → 2025-09-06 09:03 | Outpatient (BNVA) | payer OTHER, SELFPAY | PROVIDERS: PCP Internal Medicine; Visit Provider Surgery Vascular Surgery | DX: I83.12 Varicose veins of left lower extremity with inflammation (principal); I83.11 Varicose veins of right lower extremity with inflammation | CPT/HCPCS: 99212 ==

== ENCOUNTER 2025-10-03 14:25 | Outpatient (AMB) | payer OTHER, SELFPAY ==
[2025-10-03 14:36] VITALS: BP 128/82; PULSE 58; BMI 33.5
--- NOTE | 2025-10-03 14:36 | MHC.OFFVIS ---
Vital Signs 10/03/25 14:36 Height 5 ft 8 in Weight 220 lb 7.396 oz BMI 33.5 BP 128/82 Blood Pressure Location Lt brachial Position Sitting Pulse 58 Pulse Source Monitor Intake Visit Reasons: Follow up Chipper Required: No Allergies No Known Allergies (No Known Allergies*) Allergy (Verified 10/03/25 14:37) Medication List - Last Reconciled 10/03/25 by Dulce Moses NP-C aspirin 81 mg PO DAILY atorvastatin 80 mg PO DAILY buspirone 5 mg PO BID famotidine (Pepcid) 40 mg PO BEDTIME ibuprofen 600 mg PO Q6H PRN metoprolol succinate ER 25 mg PO DAILY HPI HPI Follow up: Details: Heriberto is a 60-year-old male with past medical history of hypertension, hyperlipidemia, embolic CVA, PFO who underwent PFO closure at [facility] 09/08/2023 who presents for follow-up. His last prior visit to our office was 06/26/2022. Today he reports he has been doing well with no concerning symptoms. He tells me he has had an echocardiogram at [facility] since the PFO closure. He believes he has follow-up with Dr. Reilly in the near future. He has no chest discomfort, shortness of breath, heart palpitations, lightheadedness, leg edema. He has not had any recurrent CVA symptoms. He has no residual symptoms from his prior CVA. He goes to the gym 3 days weekly and does lifting and cardio which he says he tolerates well. 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 Compliant with all meds. [facility] Medical History Right to left cardiac shunt PFO (patent foramen ovale) Hernia Vasectomy planned Annual physical exam Anxiety HTN (hypertension) Hyperlipidemia CVA (cerebral vascular accident) Surgical History History of umbilical hernia repair (~05/11/24) Hx of heart surgery Family History Father Colon cancer Mother No problems noted. Social History Household Members Other:: 3 kids Housing: Condominium Alcohol intake: never Patient Tobacco Use Status: Never used Tobacco e-Cigarette/Vaping Use: Never Used service: No Current occupational status: employed Current occupation: [employer] loss prevention operations manager Cognitive needs: No Hearing needs: No Vision needs: No Review of Systems Const All systems reviewed & are unremarkable except as noted in HPI and below ENT Denies dizziness Card Denies chest pain, Denies chest pain at rest, Denies chest pain with activity, Denies rapid heart rate, Denies pedal edema, Denies edema, Denies leg edema, Denies lightheadedness, Denies palpitations, Denies dyspnea, Denies dyspnea on exertion and Denies orthopnea Resp Denies cough, Denies dyspnea and Denies dyspnea on exertion GI Denies hematochezia and Denies change in stool character Musc Denies abnormal gait, Denies limited range of motion, Denies muscle cramps, Denies muscle weakness, Denies numbness, Denies radiating pain into limb, Denies stiffness and Denies tingling Neuro Denies abnormal gait, Denies dizziness, Denies numbness and Denies tingling Endo Denies palpitations Physical Exam Vital Signs: Last Vital Signs Pulse 58 10/03/25 14:36 BP 128/82 10/03/25 14:36 BMI result Body Mass Index 33.5 Const General: cooperative, healthy appearing, comfortable and no acute distress Orientation/consciousness: patient oriented x3 Neck Neck: Yes normal visual inspection Resp Effort & Inspection: normal respiratory effort Auscultation: clear to auscultation bilaterally, no crackles, no rales, no rhonchi and no wheezes Cardio Rate: regular rate Rhythm: regular rhythm Heart sounds: S1 normal heart sound present, S2 normal heart sound present, no gallops, no murmurs and no rubs Neuro General: patient oriented x3 Extrem General: Yes normal to inspection and No no pedal edema Psych Appearance: grossly normal Mental Status: mental status grossly normal Speech and movement: Normal speech and movement present Office Procedures EKG Details: Today, read by me, sinus bradycardia, rate 58, QTC 398 millisecond [id number], Complete Assessment & Plan Assessment & Plan (1) PFO (patent foramen ovale): Comment: s/p closure [facility] 10/16 Code(s): Q21.1 - Atrial septal defect Category: Medical Plan: Transesophageal echocardiogram 07/25/2022 showed small PFO with mobile intra-atrial septum, EF 60-65%, valves normal, mild atherosclerotic changes noted in the arch and descending thoracic aorta. He did undergo PFO closure 09/08/2023 at [facility] with Dr. Ronni Rielly. Will obtain those records and most recent echocardiogram from [facility]. Currently asymptomatic and no recurrent CVAs. Continue daily aspirin. (2) HTN (hypertension): Code(s): I10 - Essential (primary) hypertension Category: Medical Plan: Blood pressure goal less than 130/80. Well controlled at this time. Continue metoprolol. (3) Hyperlipidemia: Code(s): E78.5 - Hyperlipidemia, unspecified Category: Medical Plan: [place] LDL goal less than 100. Most recent lipid in our system 04/13/2024 shows LDL 98. Continue atorvastatin. (4) Embolic stroke: Comment: s/p PFO closure 2022 Code(s): I63.9 - Cerebral infarction, unspecified Category: Medical Plan: As above Plan Time spent on chart review, documentation, interview and assessment Coding Level of Care Code Est Pt Level 4 (90538) Complex EM visit Add On G2211 Diagnoses PFO (patent foramen ovale) Q21.1 HTN (hypertension) I10 Hyperlipidemia E78.5 Embolic stroke I63.9 CPT Codes EKG - CPT: 01309-[id number], Complete ([id number]) Time Spent (min) 28
--- OUTSIDE RECORDS SUMMARY | 2025-10-03 16:46 | XMS_ITS | Clinical Summary ---
Author Organization [facility] Address [address] [facility] [address] [place] [phone] Phone Care Team Providers Care Wine Sales Representative Name Role Phone Thalia Agarwal MD Primary Care Provider [phone] Allergies No known active allergies Medications metoprolol succinate (TOPROL-XL) 25 MG 24 hr tablet Take 25 mg by mouth daily. Active multivitamins-m inerals-folic draa-ildiueq-ci tein (COMPLETE SENIOR) 0.4 mg-300 mcg- 250 mcg Tab Take 1 tablet by mouth daily. Active atorvastatin (LIPITOR) 10 MG tablet Take 10 mg by mouth daily. Pt was at work and didn't know his dose aware to bring in list on day of surgery Active aspirin 81 MG EC tablet Take 81 mg by mouth daily. Active clopidogrel (PLAVIX) 75 mg tablet Take 75 mg by mouth daily. Active tamsulosin (FLOMAX) 0.4 mg Cap Take 0.4 mg by mouth daily. Active traMADoL (ULTRAM) 50 mg tablet Take 1 tablet (50 mg total) by mouth every 6 (six) hours as needed for pain (specific location in comments). 20 tablet 02/23/2025 Active Active Problems No known active problems Social History Tobacco Use Types Packs/Day Years Used Date Smoking Tobacco: Never Smokeless Tobacco: Never Alcohol Use Standard Drinks/Week Comments Not Currently 0 (1 standard drink = 0.6 oz pur e alcohol) couple drinks per month Education Answer Date Recorded Are you interested in more education? Not on archie e 03/21/2023 Are you concerned about learning? Not on file 03/21/2023 No 03/21/2023 No 03/21/2023 Digital Access Answer Date Recorded No 04/21/2023 No 04/21/2023 Reliable internet access at home? Not on file 04/21/2023 Device with a working camera? Not on file Sex and Gender Information Value Date Recorded Sex Assigned at Not on file Legal Sex Male 9:38 PM EDT Gender Identity Not on file Sexual Orientation Not on file Last Filed Vital Signs Vital Sign Reading Time Taken Comments Blood Pressure 154/98 02/23/2025 9:52 AM EDT Pulse 64 02/23/2025 9:00 AM EDT Temperature 36 C (96.8 F) 02/23/2025 9:52 AM EDT Respiratory Rate 16 02/23/2025 9:52 AM EDT Oxygen Saturation 97% 02/23/2025 9:52 AM EDT Inhaled Oxygen Concentration - - Weight 89.8 kg (198 lb) 02/18/2025 1:10 PM EDT Height 172.7 cm (5' 8 ) 02/18/2025 1:10 PM EDT Body Mass Index 30.11 02/18/2025 1:10 PM EDT Plan of Treatment Health Maintenance Due Date Last Done Comments DEPRESSION SCREENING 1979 HEPATITIS C SCREENING 1985 HIV ONE-TIME SCREENING (18-65 YEARS) 1985 SCREENING FOR DIABETES 2002 LIPID PANEL 01/08/2010 01/08/2005, 01/09/2004 COLOGUARD 2012 COLONOSCOPY 2012 COLORECTAL CANCER SCREENING 2012 FIT TEST 2012 FOBT 2012 SIGMOIDOSCOPY 2012 VIRTUAL COLONOSCOPY 2012 PNEUMOCOCCAL VACCINES (50+ years) (1 of 1 - PCV) 2017 ZOSTER VACCINES (1 of 2) 2017 Adult Td,Tdap Booster 09/10/2021 09/10/2011 INFLUENZA VACCINE (#1) 2025 8, 09/06/2017, 09/18/2015, Additional history exists COVID-19 VACCINE (3 - season) 2025 03/16/2021, 02/16/2021 RSV VACCINE (1 - 1-dose 75+ series) 2042 SMOKING STATUS SCREENING (Once After 26 Yrs) Completed 02/18/2025 HEPATITIS A VACCINES Aged Out No long er eligible based on patient's age to complete this topic HIB VACCINES Aged Out No longer eligi ble based on patient's age to complete this topic MENINGOCOCCAL VACCINES (ACWY) Aged Out No longer eligible based on patient's age to complete this topic MENINGOCOCCAL VACCINES (B) Aged Out N o longer eligible based on patient's age to complete this topic Medical Devices Not on file Insurance [facility] DIRECT [facility] [employer] DIRECT [facility] [employer] DIRECT [facility] DIRECT [facility] DIRECT Care Teams Wine Sales Representative Relationship Specialty Start Date End Date Thalia Agarwal MD [address] [facility] [place] [address] PCP - General Internal Medicine 07/06/21 Additional Source Comments The information contained in this document represents components of the legal health record. It is not the complete legal health record.[facility]
--- OUTSIDE RECORDS SUMMARY | 2025-10-03 16:46 | XMS_ITS | Encounter Summary ---
Author Organization [facility] Address [address] [place] [address] Phone Care Team Providers Care Car Rental Service Attendant Name Role Phone Thalia Agarwal MD Primary Care Provider [phone] Encounter Details Date Type Department Care Team (Late st Contact Info) Description 06/18/2022 Transcribe Orders Virtual Department 30 [place] [address] Mehreen Newberry PA-C [address] [place] [address] [email or web address] Calculus of kidney (Primary Dx) Social History Tobacco Use Types Packs/Day Years Used Date Smoking Tobacco: Never Smokeless Tobacco: Never Alcohol Use Standard Drinks/Week Comments Yes 0 (1 standard drink = 0.6 oz pur e alcohol) couple drinks per month Sex and Gender Information Value Date Recorded Sex Assigned at Not on file Legal Sex Male 9:38 PM EDT Gender Identity Not on file Sexual Orientation Not on file documented as of this encounter Plan of Treatment Not on file documented as of this encounter Results * US Kidneys (12/11/2022 11:17 AM EST) Anatomical Region Laterality Modality Abdomen, Kidney Ultrasound 12/11/2022 4:45 PM EST Impressions 12/11/2022 4:48 PM EST 1. 6 mm calculus at the upper pole the right kidney. No hydronephrosis. 2. Enlarged left kidney with multiple cysts demonstrated the largest of which measures up to 6.2 cm. Correlation with remote studies recommended. Narrative 12/11/2022 4:48 PM EST US KIDNEYS History: Right renal calculus TECHNIQUE: Kidney Ultrasound. COMPARISON: There is no prior study available for comparison FINDINGS: Evaluation limited by poor sonographic window. Right Kidney: Size: 10.9 cm Normal corticomedullary differentiation and cortical thickness. There is a 6 mm echogenic focus at the upper pole of the right kidney keeping with a calculus. No hydronephrosis. Left Kidney: Left kidney is enlarged measuring 15.4 cm. Normal. corticomedullary differentiation and cortical thickness. Multiple renal cysts are demonstrated the largest of which measures 2.6 cm at the upper pole. Bladder: The urinary bladder is physiologically distended. No definite lesion demonstrated. Bilateral ureteral jets are unable to be demonstrated. Procedure Note Laxmi Reid MD - 12/11/2022 US KIDNEYS History: Right renal calculus TECHNIQUE: Kidney Ultrasound. COMPARISON: There is no prior study available for comparison FINDINGS: Evaluation limited by poor sonographic window. Right Kidney: Size: 10.9 cm Normal corticomedullary differentiation and cortical thickness. There yadira 6 mm echogenic focus at the upper pole of the right kidney keeping witha calculus. No hydronephrosis. Left Kidney: Left kidney is enlarged measuring 15.4 cm. Normal. corticomedullary differentiation and cortical thickness. Multiplerenal cysts are demonstrated the largest of which measures 2.6 cm at theupper pole. Bladder: The urinary bladder is physiologically distended. No definitelesion demonstrated. Bilateral ureteral jets are unable to bedemonstrated. IMPRESSION: 1. 6 mm calculus at the upper pole the right kidney. No hydronephrosis. 2. Enlarged left kidney with multiple cysts demonstrated the largest ofwhich measures up to 6.2 cm. Correlation with remote studiesrecommended. us Emanuel Woodson MD IMG US RENAL Final Result * XR ABDOMEN 1 VIEW (11/04/2022 11:36 AM EST) Anatomical Region Laterality Modality Abdomen Computed Radiogr aphy 11/04/2022 4:23 PM EST Narrative 11/04/2022 4:25 PM EST XR ABDOMEN 1 VIEW COMPARISON: 02/18/2022 FINDINGS: Tubes/Lines: None Bowel: Normal. No bowel dilatation. Questionable punctate calcification projecting over the right mid kidney could represent a renal stone. No other evidence of urinary tract calculi. Previously noted suspected left renal stone no longer visualized. Procedure Note Lobito Ramos MD, GUME - 11/04/2022 XR ABDOMEN 1 VIEW COMPARISON: 02/18/2022 FINDINGS: Tubes/Lines: None Bowel: Normal. No bowel dilatation. Questionable punctate calcification projecting over the right mid kidneycould represent a renal stone. No other evidence of urinary tract calculi.Previously noted suspected left renal stone no longer visualized. Emanuel Woodson MD IMG XR ABDOMEN Final Result documented in this encounter Visit Diagnoses Diagnosis Calculus of kidney- Primary Calculus of kidney Calculus of kidney documented in this encounter Care Teams Car Rental Service Attendant Relationship Specialty Start Date End Date Thalia Agarwal MD [address] [place] [address] PCP - General Internal Medicine 07/06/21 documented as of this encounter Additional Source Comments The information contained in this document represents components of the legal health record. It is not the complete legal health record.[facility]
--- OUTSIDE RECORDS SUMMARY | 2025-10-03 16:46 | XMS_ITS | Encounter Summary ---
Author Organization [facility] Address [address] [address] Phone Care Team Providers Care Test Technician Name Role Phone Thalia Agarwal MD Primary Care Provider [phone] Encounter Details Date Type Department Care Team (Latest Contact Info) Description 07/06/2021 Transcribe Orders Virtual Department 30 [place] [address] Erika Munoz PA-C [address] [place] [address], [address] [address] [email or web address] Encounter for sterilization (Primary Dx) Social History Tobacco Use Types Packs/Day Years Used Date Smoking Tobacco: Never Assessed Sex and Gender Information Value Date Recorded Sex Assigned at Not on file Legal Sex Male 9:38 PM EDT Gender Identity Not on file Sexual Orientation Not on file documented as of this encounter Plan of Treatment Not on file documented as of this encounter Results * US SCROTUM AND TESTICLES (07/10/2021 1:55 PM EDT) Anatomical Region Laterality Modality Pelvis, Scrotum/Testes, Testes U ltrasound 07/10/2021 3:00 PM EDT Impressions 07/10/2021 3:22 PM EDT Anterior to the left testicle, there is a round complex avascular structure with internal loculations, measuring approximately 3.6 x 3.3 x 3.2 cm. Could represent an abscess. Tissue sampling could be of benefit for further characterization. Narrative 07/10/2021 3:22 PM EDT TECHNIQUE: Scrotal Ultrasound. Scrotal color and spectral Doppler. COMPARISON: None available. FINDINGS: Right hemiscrotum: Testicle: 5.2 x 2.1 x 3.3 cm for a total volume of 18.8 mL Normal arterial waveforms and intratesticular blood flow. Epididymis: Normal, measures 0.9 x 1.1 x 0.9 cm. Varicocele: None. Hydrocele: None. Left hemiscrotum: Testicle: 3.5 x 2.7 x 2.7 cm for a total volume of 13.3 mL Normal arterial waveforms and intratesticular blood flow. Anterior to the left testicle, there is a round complex avascular structure with internal loculations, measuring approximately 3.6 x 3.3 x 3.2 cm. Epididymis: Measures 1.3 x 1.0 x 1.2 cm. Tiny epididymal head cyst measuring 0.3 x 0.3 x 0.3 cm. Varicocele: None. Hydrocele: Small simple hydrocele noted. Procedure Note Donte Carney MD - 07/10/2021 TECHNIQUE: Scrotal Ultrasound. Scrotal color and spectral Doppler. COMPARISON: None available. FINDINGS: Right hemiscrotum: Testicle: 5.2 x 2.1 x 3.3 cm for a total volume of 18.8 mL Normal arterial waveforms and intratesticular blood flow. Epididymis: Normal, measures 0.9 x 1.1 x 0.9 cm. Varicocele: None. Hydrocele: None. Left hemiscrotum: Testicle: 3.5 x 2.7 x 2.7 cm for a total volume of 13.3 mL Normal arterial waveforms and intratesticular blood flow. Anterior to theleft testicle, there is a round complex avascular structure with internalloculations, measuring approximately 3.6 x 3.3 x 3.2 cm. Epididymis: Measures 1.3 x 1.0 x 1.2 cm. Tiny epididymal head cystmeasuring 0.3 x 0.3 x 0.3 cm. Varicocele: None. Hydrocele: Small simple hydrocele noted. IMPRESSION: Anterior to the left testicle, there is a round complex avascularstructure with internal loculations, measuring approximately 3.6 x 3.3 x3.2 cm. Could represent an abscess. Tissue sampling could be of benefitfor further characterization. us Erika Munoz PA-C IMG US SCROTUM/PENIS Final Res ult documented in this encounter Visit Diagnoses Diagnosis Encounter for sterilization- Primary Sterilization Encounter for sterilization Sterilization documented in this encounter Care Teams Test Technician Relationship Specialty Start Date End Date Thalia Agarwal MD [address] [place] [address] PCP - General Internal Medicine 07/06/21 documented as of this encounter Additional Source Comments The information contained in this document represents components of the legal health record. It is not the complete legal health record.[facility]
--- OUTSIDE RECORDS SUMMARY | 2025-10-03 16:46 | XMS_ITS | Clinical Summary ---
Author Organization [facility] [address] [facility] Address [address] [place] [address] Phone Care Team Providers Care Adult School Teacher Name Role Phone Thalia Agarwal MD Primary Care Provider Allergies No known active allergies Medications atorvastatin [...] Description 08/15/2025 11:03 AM EDT Anesthesia Event [facility] Endoscopy [address] [place] [phone] Doc Yeh MD 08/15/2025 10:29 AM EDT - 08/15/2025 11:59 PM EDT Hospital Encounter [facility] Endoscopy [address] [place] [phone] Phil Pena MD Barnes, Tyanna R, CRNA [...] complete this topic RSV Immunization Patients Un ilana 20 months Aged Out No longer eligible b ased on patient's age to complete this topic Varicella Vaccines Aged Out No longer eligible based on patient's age to complete this topic Procedures Procedure Name Priority Date/Time Associated Diagnosis Comments COLONOSCOPY Routine 08/15/2025 11:18 AM EDT Colon cancer screening from Last 3 Months Results * COLONOSCOPY Anesthesia - MAC; [facility] ENDOSCOPY (08/15/2025 11:18 AM EDT) Anatomical Region [...] office PRN. Narrative 08/15/2025 11:17 AM EDT [facility] GI Patient Name: Mercedes Gibbons Procedure Date: [...] malignant neoplasm of colon CPT copyright 2020 [employer]. All rights reserved. The codes documented in this report are preliminary and upon die repairer trimmer dies review may be revised to meet current compliance requirements. Phil Pena MD 08/15/2025 11:17:11 AM This report has been signed electronically.Phil Pena MD Number of Addenda: 0 Note Initiated On: 08/15/2025 10:54 AM Scope In: Scope Out: Endoscopy Department at [facility] - [address] [place] [phone] Procedure Note Phil Pena MD - 08/15/2025 [facility] GI Patient Name: Mercedes Gibbons Procedure Date: [...] for malignantneoplasm of colon CPT copyright 2020 [employer]. All rights reserved. The codes documented in this report are preliminary and upon die repairer trimmer dies reviewmay be revised to meet current compliance requirements. Phil Pena MD 08/15/2025 11:17:11 AM This report has been signed electronically.Phil Pena MD Number of Addenda: 0 Note Initiated On: 08/15/2025 10:54 AM Scope In: Scope Out: Endoscopy Department at [facility] - [address] [place], [place] [id number] IMPRESSION: - Non-bleeding internal hemorrhoids. - The examination was otherwise normal on directand retroflexion views. - No specimens collected. Recommendation: - Discharge patient to home. - Resume previous diet. - Continue present medications. - Repeat colonoscopy in 10 years [facility]. - Return to GI office PRN. Phil Pena MD GI~PROCEDURE ORDERABLES Final Result from Last 3 Months Insurance [facility] [employer] Care Teams Adult School Teacher Relationship Specialty Start Date End Date Thalia Agarwal MD [address] [place] [address] PCP - General Internal Medicine 08/01/25
--- OUTSIDE RECORDS SUMMARY | 2025-10-03 16:46 | XMS_ITS | Encounter Summary ---
Author Organization [facility] Address [address] [address] Phone Care Team Providers Care Activities Therapist Name Role Phone Thalia Agarwal MD Primary Care Provider [phone] Encounter Details Date Type Department Care Team (Latest Contact Info) Description 01/04/2022 Transcribe Orders Virtual Department 30 [place] [address] Emanuel Woodson MD [address] [place] [address], [address] [address] [email or web address] Calculus of kidney (Primary Dx) Social [...] documented as of this encounter Results * XR ABDOMEN 1 VIEW (02/18/2022 9:17 AM EDT) Anatomical Region Laterality Modality Abdomen Computed Radiogr aphy 02/18/2022 9:45 AM EDT Impressions 02/18/2022 9:47 AM EDT 4 mm right and 7 mm left renal calculi. Narrative 02/18/2022 9:47 AM EDT XR ABDOMEN 1 VIEW COMPARISON: None FINDINGS: There is a 7 mm calculus projecting over the left kidney. There is a 4 mm calculus projecting over the right kidney. Bowel: Normal. No bowel dilatation. No acute osseous abnormality. Procedure Note Hugo Day MD - 02/18/2022 XR ABDOMEN 1 VIEW COMPARISON: None FINDINGS: There is a 7 mm calculus projecting over the left kidney. There is a 4 mmcalculus projecting over the right kidney. Bowel: Normal. No bowel dilatation. No acute osseous abnormality. IMPRESSION: 4 mm right and 7 mm left renal calculi. Emanuel Woodson MD IMG XR ABDOMEN Final Result documented in this encounter Visit Diagnoses Diagnosis Calculus of kidney- Primary Calculus of kidney documented in this encounter Care Teams Activities Therapist Relationship Specialty Start Date End Date Thalia Agarwal MD [address] [place] [address] PCP - General Internal Medicine 07/06/21 documented as of this encounter Additional Source Comments The information contained in this document represents components of the legal health record. It is not the complete legal health record.[facility]
--- OUTSIDE RECORDS SUMMARY | 2025-10-03 16:46 | XMS_ITS | Encounter Summary ---
Author Organization [facility] Address [address] [facility] [address] [place] [address] Phone Care Team Providers Care Rn Admit Name Role Phone Thalia Agarwal MD Primary Care Provider [phone] Encounter Details Date Type Department Care Team (Late st Contact Info) Description 03/27/2022 Procedure Pass OR Admitting Dept - Virtual Department 30 [place] [address] Social History Tobacco Use Types Packs/Day Years [...] on file documented as of this encounter Visit Diagnoses Not on filedocumented in this encounter Care Teams Rn Admit Relationship Specialty Start Date End Date Thalia Agarwal MD [address] [place] [address] PCP - General Internal Medicine 07/06/21 documented as of this encounter Additional Source Comments The information contained in this document represents components of the legal health record. It is not the complete legal health record.[facility]
--- OUTSIDE RECORDS SUMMARY | 2025-10-03 16:46 | XMS_ITS | Encounter Summary ---
Author Organization [facility] Address [address] [facility] [address] [place] [address] Phone Care Team Providers Care Oral And Maxillofacial Surgery Resident Name Role Phone Thalia Agarwal MD Primary Care Provider [phone] Encounter Details Date Type Department Care Team (Latest Contact Info) Description 01/01/2023 Transcribe Orders Virtual Department 30 [place] [address] Yessi Mckinley PA [address] [address] [email or web address] Calculus of kidney (Primary Dx) Social History [...] encounter Results * XR ABDOMEN 1 VIEW (02/10/2023 8:45 AM EDT) Anatomical Region Laterality Modality Abdomen Computed Radiogr aphy 02/11/2023 9:03 AM EDT Impressions 02/11/2023 10:03 AM EDT No radiopaque urinary tract calculi. Please see ultrasound report for further details. Narrative 02/11/2023 10:03 AM EDT XR ABDOMEN 1 VIEW HISTORY: Urinary tract calculi. COMPARISON: Ultrasound kidneys and bladder 02/10/2023, abdominal x-ray 11/04/2022. FINDINGS: No urinary tract calculi are convincingly visualized on plain radiographs. Scattered air in a moderate amount of stool within the colon. No marked bowel distention. No definite signs of abdominal or pelvic masses. No other significant changes. Procedure Note Roosevelt Saleem MD - 02/11/2023 XR ABDOMEN 1 VIEW HISTORY: Urinary tract calculi. COMPARISON: Ultrasound kidneys and bladder 02/10/2023, abdominal x-ray11/04/2022. FINDINGS: No urinary tract calculi are convincingly visualized on plainradiographs. Scattered air in a moderate amount of stool within the colon. No markedbowel distention. No definite signs of abdominal or pelvic masses. No other significant changes. IMPRESSION: No radiopaque urinary tract calculi. Please see ultrasound report forfurther details. us Yessi BYRNES IMG XR ABDOMEN Final Result * US Kidneys and Bladder (02/10/2023 8:28 AM EDT) Anatomical Region Laterality Modality Abdomen, Kidney Ultrasound 02/10/2023 12:3 9 PM EDT Impressions 02/10/2023 12:46 PM EDT 1. Redemonstration of a 7 mm calculus at the upper pole the right kidney. No hydronephrosis 2. Redemonstration of multiple left-sided renal cysts which replace the renal parenchyma measuring up to 6.5 cm. Narrative 02/10/2023 12:46 PM EDT US KIDNEYS AND BLADDER TECHNIQUE: Kidney Ultrasound. COMPARISON: Renal sonography 12/11/2022 FINDINGS: Right Kidney: Size: 11.4 cm Normal corticomedullary differentiation and cortical thickness. Redemonstration of a 7 mm echogenic focus at the upper pole on the right kidney in keeping with a calculus. No hydronephrosis. Left Kidney: Size: 16.0 cm The left kidney is again noted to be enlarged with multiple renal cysts replace the renal parenchyma. The largest again measures up to 6.5 cm at the upper pole. No definite stone or hydronephrosis. Bladder: The urinary bladder is mildly distended. Bilateral ureteral jets are present. Prevoid bladder volume: Approximately 109 mL Post void bladder volume: Patient declined the need to void Procedure Note Laxmi Reid MD - 02/10/2023 US KIDNEYS AND BLADDER TECHNIQUE: Kidney Ultrasound. COMPARISON: Renal sonography 12/11/2022 FINDINGS: Right Kidney: Size: 11.4 cm Normal corticomedullary differentiation and cortical thickness.Redemonstration of a 7 mm echogenic focus at the upper pole on the rightkidney in keeping with a calculus. No hydronephrosis. Left Kidney: Size: 16.0 cm The left kidney is again noted to be enlarged with multiple renal cystsreplace the renal parenchyma. The largest again measures up to 6.5 cm atthe upper pole. No definite stone or hydronephrosis. Bladder: The urinary bladder is mildly distended. Bilateral ureteral jetsare present. Prevoid bladder volume: Approximately 109 mL Post void bladder volume: Patient declined the need to void IMPRESSION: 1. Redemonstration of a 7 mm calculus at the upper pole the right kidney.No hydronephrosis 2. Redemonstration of multiple left-sided renal cysts which replace therenal parenchyma measuring up to 6.5 cm. Yessi BYRNES [facility] RENAL Final Result documented in this encounter Visit Diagnoses Diagnosis Calculus of kidney- Primary Calculus of kidney Calculus of kidney documented in this encounter Care Teams Oral And Maxillofacial Surgery Resident Relationship Specialty Start Date End Date Thalia Agarwal MD [address] [place] [address] PCP - General Internal Medicine 07/06/21 documented as of this encounter Additional Source Comments The information contained in this document represents components of the legal health record. It is not the complete legal health record.[facility]
--- OUTSIDE RECORDS SUMMARY | 2025-10-03 16:46 | XMS_ITS | Encounter Summary ---
Author Organization [facility] Address [address] [facility] [address] [place] [address] Phone Care Team Providers Care Filer Metal Patterns Name Role Phone Thalia Agarwal MD Primary Care Provider [phone] Encounter Details Date Type Department Care Team (Late st Contact Info) Description 02/23/2025 Procedure Pass OR Admitting Dept - Virtual Department [address] [place] [address] Social History Tobacco Use Types Packs/Day Years [...] on filedocumented in this encounter Care Teams Filer Metal Patterns Relationship Specialty Start Date End Date Thalia Agarwal MD [address] [place] [address] PCP - General Internal Medicine 07/06/21 documented as of this encounter Additional Source Comments The information contained in this document represents components of the legal health record. It is not the complete legal health record.[facility]
== END 2025-10-03 15:00 | disposition home or self-care (01) ==
LOC: HO.HCS 14:25
PROVIDERS: PCP Internal Medicine; Visit Provider Nurse Practitioner Family
DX: Q21.10 Atrial septal defect, unspecified (principal); I10 Essential (primary) hypertension; E78.5 Hyperlipidemia, unspecified; I63.9 Cerebral infarction, unspecified
CPT/HCPCS: 93010; 99214

== ENCOUNTER → 2025-10-03 14:25 | Outpatient (BNVA) | payer OTHER, SELFPAY | PROVIDERS: PCP Internal Medicine; Visit Provider Nurse Practitioner Family | DX: I10 Essential (primary) hypertension (principal); Q21.10 Atrial septal defect, unspecified; E78.5 Hyperlipidemia, unspecified; I63.9 Cerebral infarction, unspecified | CPT/HCPCS: 93005; 99212 ==

== ENCOUNTER 2025-11-14 09:26 | Outpatient (AMB) | payer OTHER, SELFPAY ==
[2025-11-14 09:27] VITALS: BP 124/70; PULSE 64; RESP 18; TEMP 36.7; O2SAT 98; BMI 32.8
--- NOTE | 2025-11-14 09:27 | A.OFFPC_ITS ---
Vital Signs 11/14/25 09:27 Height 5 ft 8 in Weight 216 lb BMI 32.8 BP 124/70 Blood Pressure Location Rt brachial Position Sitting Respiration 18 Pulse 64 Pulse Source Pulse Oximeter Temp 98.1 F Temp Source Oral Pulse Oximetry (%) 98 Oxygen Delivery Method Room Air Intake Visit Reasons: 6m follow up Intake Note: Pt is here today for 6 months follow up visit. Allergies No Known Allergies (No Known Allergies*) Allergy (Verified 11/14/25 09:30) Medication List - Last Reconciled 11/14/25 by Thalia Agarwal MD aspirin 81 mg PO DAILY atorvastatin 80 mg PO DAILY buspirone 5 mg PO BID famotidine (Pepcid) 40 mg PO BEDTIME ibuprofen 600 mg PO Q6H PRN metoprolol succinate ER 25 mg PO DAILY Tobacco use date assessed: 11/14/25 Dental Screening Dental Screen Date: 05/16/25 HPI 6m follow up HPI Details Pt presents for hyperlipid, stable on meds. PFSH Medical History (Updated 11/14/25 @ 09:56 by Thalia Agarwal MD) Embolic stroke PFO (patent foramen ovale) Hernia Annual physical exam Anxiety HTN (hypertension) Hyperlipidemia Surgical History (Updated 11/14/25 @ 09:57 by Thalia Agarwal MD) History of colonoscopy History of umbilical hernia repair (~05/11/24) Hx of heart surgery Family History Father Colon cancer Mother No problems noted. 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 Cognitive needs: No Hearing needs: No Vision needs: No Questionnaire Thrive Questionnaire Date Thrive assessed: 05/16/25 I am a: Patient What is your living situation today?: I have a steady place to live Within the past 12 months, did the food you bought not last and you didn't have the money to get more?: Never true Within the past 12 months, did you worry whether your food would run out before you got money to buy more?: Never true Do you have trouble paying for medicines?: No Do you have trouble getting transportation to medical appointments?: No Do you have trouble paying your heating and electricity bill?: No Do you have trouble taking care of your child, family member or friend?: No Do you have trouble with day-to-day activities such as bathing, preparing meals, shopping, managing finances, etc.?: No Are you currently unemployed and looking for a job?: No Are you interested in more education?: Yes Please select the resources that you would like help with: None Currently or been in a relationship where the following occur: No concerns reported THRIVE Score: 0 RUPAL-7 AMB Questionnaire RUPAL-7 Date RUPAL - 7 assessed: 05/16/25 Source: Developed by Drs. Jorge Sifuentes, Faith Arechiga, Fadi Richter and colleagues, with an educational mer from [employer]. Review of Systems Const All systems reviewed & are unremarkable except as noted in HPI and below Eyes Reports no additional complaints ENT Reports no additional complaints Card Reports no additional complaints Resp Reports no additional complaints GI Reports no additional complaints Reports no additional complaints Physical exam (Primary Care) Vital Signs: Last Vital Signs Temp 98.1 F 11/14/25 09:27 Pulse 64 11/14/25 09:27 Resp 18 11/14/25 09:27 BP 124/70 11/14/25 09:27 Pulse Ox 98 11/14/25 09:27 Oxygen Delivery Method Room Air 11/14/25 09:27 BMI result Body Mass Index 32.8 Tobacco/Smoking Status: Tobacco use Status Tobacco use date assessed 11/14/25 11/14/25 09:33 Patient Tobacco Use Status Never used Tobacco 11/14/25 09:27 e-Cigarette/Vaping Use Never Used 11/14/25 09:27 Thrive Assessment: Date of Thrive Assessment Date Thrive assessed 05/16/25 11/14/25 09:27 Currently or been in a relationship where the following occur: No concerns reported Const General: no acute distress HENMT Head: Yes normal to inspection Throat: Yes posterior oropharynx normal Resp Effort & Inspection: normal respiratory effort Auscultation: clear to auscultation bilaterally Cardio Rhythm: regular rhythm Heart sounds: S1 normal heart sound present and S2 normal heart sound present GI Inspection: Yes normal to inspection Palpation (GI): Soft to palpation Percussion: Yes normal to percussion Auscultation: normal bowel sounds Coding Level of Care Code Est Pt Level 4 (22190) Diagnoses HTN (hypertension) I10 Hyperlipidemia E78.5 Embolic stroke I63.9 Assessment & Plan Assessment & Plan (1) HTN (hypertension): Code(s): I10 - Essential (primary) hypertension Category: Medical Plan: Continue metoprolol (2) Hyperlipidemia: Code(s): E78.5 - Hyperlipidemia, unspecified Category: Medical Plan: Continue statin (3) Embolic stroke: Comment: Transient right-sided weakness for 1 hour, 12/2019 s/p PFO closure 2022, on low dose of aspirin and statin Code(s): I63.9 - Cerebral infarction, unspecified Category: Medical Plan: Continue low-dose aspirin and statin Medications: Refilled famotidine (Pepcid) 40 mg PO BEDTIME 90 tabs 0RF Discontinued buspirone Discontinued Reason: Doctor's Order 5 mg PO BID 180 tabs 3RF
--- OUTSIDE RECORDS SUMMARY | 2025-11-14 10:39 | XMS_ITS | Clinical Summary ---
Author Organization [facility] Address [address] [facility] [address] [place] [address] Phone Care Team Providers Care Gum Remover Name Role Phone Thalia Agarwal MD Primary Care Provider [phone] Allergies No known active allergies Medications metoprolol succinate (TOPROL-XL) 25 MG 24 hr tablet Take 25 mg by mouth daily. Active multivitamins-m inerals-folic ymfu-kjeivav-yq tein (COMPLETE SENIOR) 0.4 mg-300 mcg- 250 [...] topic Medical Devices Not on file Insurance [facility] DIRECT [facility] Care Teams Gum Remover Relationship Specialty Start Date End Date Thalia Agarwal MD [address] [place] [address] PCP - General Internal Medicine 07/06/21 Additional Source Comments The information contained in this document represents components of the legal health record. It is not the complete legal health record.[facility]
--- OUTSIDE RECORDS SUMMARY | 2025-11-14 10:39 | XMS_ITS | Encounter Summary ---
Author Organization [facility] Address [address] [address] Phone Care Team Providers Care Motion Picture Commentator Name Role Phone Thalia Agarwal MD Primary Care Provider [phone] Encounter Details Date Type Department Care Team (Latest Contact Info) Description 01/04/2022 Transcribe Orders Virtual Department [address] [place] [address] Emanuel Woodson MD [address] [place] [address], [address] [address] [email or web address] Calculus of kidney (Primary Dx) Social History [...] kidney documented in this encounter Care Teams Motion Picture Commentator Relationship Specialty Start Date End Date Thalia Agarwal MD [address] [place] [address] PCP - General Internal Medicine 07/06/21 documented as of this encounter Additional Source Comments The information contained in this document represents components of the legal health record. It is not the complete legal health record.[facility]
--- OUTSIDE RECORDS SUMMARY | 2025-11-14 10:39 | XMS_ITS | Encounter Summary ---
Author Organization [facility] Address [address] [facility] [address] [place] [address] Phone Care Team Providers Care Grocery Supervisor Name Role Phone Thalia Agarwal MD Primary Care Provider [phone] Encounter Details Date Type Department Care Team (Late st Contact Info) Description 03/27/2022 Procedure Pass OR Admitting Dept - Virtual Department [address] [place] [address] Social History Tobacco Use Types Packs/Day Years [...] on filedocumented in this encounter Care Teams Grocery Supervisor Relationship Specialty Start Date End Date Thalia Agarwal MD [address] [place] [address] PCP - General Internal Medicine 07/06/21 documented as of this encounter Additional Source Comments The information contained in this document represents components of the legal health record. It is not the complete legal health record.[facility]
--- OUTSIDE RECORDS SUMMARY | 2025-11-14 10:39 | XMS_ITS | Encounter Summary ---
Author Organization [facility] Address [address] [facility] [address] [place] [address] Phone Care Team Providers Care Superintendent Refuse Disposal Name Role Phone Thalia Agarwal MD Primary Care Provider [phone] Encounter Details Date Type Department Care Team (Late st Contact Info) Description 02/23/2025 Procedure Pass OR Admitting Dept - Virtual Department [address] [place] [address] Social History Tobacco Use Types Packs/Day Years [...] on filedocumented in this encounter Care Teams Superintendent Refuse Disposal Relationship Specialty Start Date End Date Thalia Agarwal MD [address] [place] [address] PCP - General Internal Medicine 07/06/21 documented as of this encounter Additional Source Comments The information contained in this document represents components of the legal health record. It is not the complete legal health record.[facility]
--- OUTSIDE RECORDS SUMMARY | 2025-11-14 10:39 | XMS_ITS | Encounter Summary ---
Author Organization [facility] Address [address] [address] Phone Care Team Providers Care Business Operations Coordinator Name Role Phone Thalia Agarwal MD Primary Care Provider [phone] Encounter Details Date Type Department Care Team (Latest Contact Info) Description 07/06/2021 Transcribe Orders Virtual Department [address] [place] [address] Erika Munoz PA-C [address] [place] [address], [address] [address] [email or web address] Encounter for sterilization (Primary Dx) Social History [...] Sterilization documented in this encounter Care Teams Business Operations Coordinator Relationship Specialty Start Date End Date Thalia Agarwal MD [address] [place] [address] PCP - General Internal Medicine 07/06/21 documented as of this encounter Additional Source Comments The information contained in this document represents components of the legal health record. It is not the complete legal health record.[facility]
--- OUTSIDE RECORDS SUMMARY | 2025-11-14 10:39 | XMS_ITS | Clinical Summary ---
Author Organization [facility] [address] [facility] Address [address] [place] [address] Phone Care Team Providers Care Senior Recruitment Consultant Name Role Phone Thalia Agarwal MD Primary Care Provider [phone] Allergies No known active allergies Medications atorvastatin [...] Description 08/15/2025 11:03 AM EDT Anesthesia Event [facility] Endoscopy [address] [place] [address] Doc Yeh MD 08/15/2025 10:29 AM EDT - 08/15/2025 11:59 PM EDT Hospital Encounter [facility] Endoscopy [address] [place] [phone] Phil Pena MD Barnes, Tyanna R, CRNA [...] Orientation Straight 08/15/2025 10 :26 AM EDT Last Filed Vital Signs Vital Sign Reading [...] Months Results * COLONOSCOPY Anesthesia - MAC; [facility] ENDOSCOPY (08/15/2025 11:18 AM EDT) Anatomical [...] office PRN. Narrative 08/15/2025 11:17 AM EDT [facility] GI Patient Name: Mercedes Gibbons Procedure Date: 08/15/2025 10:54 AM Date of : 1965 Age: 59 Room: ROOM 15 Gender: Male Note Status: Finalized Attending MD: Phil Pena MD, Procedure Date No Time: 08/15/2025 Procedure: Colonoscopy Indications: Screening for colorectal malignant neoplasm Providers: Phil Pena MD Referring MD: Phil ePna MD Medicines: Monitored Anesthesia Care Complications: No [...] malignant neoplasm of colon CPT copyright 2020 [employer]. All rights reserved. The codes documented in this report are preliminary and upon hcc coders review may be revised to meet current compliance requirements. Phil Pena MD 08/15/2025 11:17:11 AM This report has been signed electronically.Phil Pena MD Number of Addenda: 0 Note Initiated On: 08/15/2025 10:54 AM Scope In: Scope Out: Endoscopy Department at [facility] - [address] [place] [phone] Procedure Note Phil Pean MD - 08/15/2025 [facility] GI Patient Name: Mercedes Gibbons Procedure [...] for malignantneoplasm of colon CPT copyright 2020 [employer]. All rights reserved. The codes documented in this report are preliminary and upon hcc coders reviewmay be revised to meet current compliance requirements. Phil Pena MD 08/15/2025 11:17:11 AM This report has been signed electronically.Phil Pena MD Number of Addenda: 0 Note Initiated On: 08/15/2025 10:54 AM Scope In: Scope Out: Endoscopy Department at [facility] - [address] [place] [phone] IMPRESSION: - Non-bleeding internal hemorrhoids. - The examination was otherwise normal on directand retroflexion views. - No specimens collected. Recommendation: - Discharge patient to home. - Resume previous diet. - Continue present medications. - Repeat colonoscopy in 10 years formerly [facility]. - Return to GI office PRN. Phil Pena MD GI~PROCEDURE ORDERABLES Final Result from Last 3 Months Insurance [facility] [employer] Care Teams Senior Recruitment Consultant Relationship Specialty Start Date End Date Thalia Agarwal MD [address] [place] [address] PCP - General Internal Medicine 08/01/25
--- OUTSIDE RECORDS SUMMARY | 2025-11-14 10:39 | XMS_ITS | Encounter Summary ---
Author Organization [facility] Address [address] [place] [address] Phone Care Team Providers Care Senior Storage Engineer Name Role Phone Thalia Agarwal MD Primary Care Provider [phone] Encounter Details Date Type Department Care Team (Late st Contact Info) Description 06/18/2022 Transcribe Orders Virtual Department [address] [place] [address] Mehreen Newberry PA-C [address] [place] [address] [email or web address] Calculus of kidney (Primary Dx) Social [...] kidney documented in this encounter Care Teams Senior Storage Engineer Relationship Specialty Start Date End Date Thalia Agarwal MD [address] [place] [address] PCP - General Internal Medicine 07/06/21 documented as of this encounter Additional Source Comments The information contained in this document represents components of the legal health record. It is not the complete legal health record.[facility]
--- OUTSIDE RECORDS SUMMARY | 2025-11-14 10:39 | XMS_ITS | Encounter Summary ---
Author Organization [facility] Address [address] [facility] [address] [place] [address] Phone Care Team Providers Care Dementia Program Director Name Role Phone Thalia Agarwal MD Primary Care Provider [phone] Encounter Details Date Type Department Care Team (Latest Contact Info) Description 01/01/2023 Transcribe Orders Virtual Department [address] [place] [address] Yessi Mckinley PA [address] [address] [email or web address] Calculus of kidney (Primary Dx) Social [...] measuring up to 6.[address] [facility] Final Result documented in this encounter Visit Diagnoses Diagnosis Calculus of kidney- Primary Calculus of kidney Calculus of kidney documented in this encounter Care Teams Dementia Program Director Relationship Specialty Start Date End Date Thalia Agarwal MD [address] [place] [address] PCP - General Internal Medicine 07/06/21 documented as of this encounter Additional Source Comments The information contained in this document represents components of the legal health record. It is not the complete legal health record.[facility]
== END 2025-11-14 09:49 | disposition home or self-care (01) ==
LOC: HO.HMCC 09:27
PROVIDERS: PCP Internal Medicine; Visit Provider Internal Medicine
DX: I10 Essential (primary) hypertension (principal); E78.5 Hyperlipidemia, unspecified; I63.9 Cerebral infarction, unspecified

== ENCOUNTER → 2025-11-14 09:26 | Outpatient (BNVA) | payer OTHER, SELFPAY | PROVIDERS: PCP Internal Medicine; Visit Provider Internal Medicine | DX: I10 Essential (primary) hypertension (principal); E78.5 Hyperlipidemia, unspecified; I63.9 Cerebral infarction, unspecified | CPT/HCPCS: 99212 ==